=== PATIENT | female | born 1945 | race Caucasian/White ===

== ENCOUNTER 2019-09-03 14:37 | Emergency (ER) | payer MEDICARE, SELFPAY ==
[2019-09-03 14:39] VITALS: BP 157/70; PULSE 78; PULSE 85; RESP 16; RESP 17; TEMP 37.1; O2SAT 94; BMI 50.1
--- NOTE | 2019-09-03 15:40 | RAD_ITS ---
STUDY: X-RAY CHEST REASON FOR EXAM: Female, 73 years old. Cough. Chest pain. TECHNIQUE: Single AP portable view of the chest. COMPARISON: 07/23/2015. FINDINGS: Limited by rotation to the right. Normal lung volumes. Lungs are clear, no infiltrates or effusions. Normal size heart. Normal mediastinum and jv. Normal visualized pulmonary arteries. There is atherosclerotic calcification of the aortic arch with tortuosity. There are diffuse degenerative changes of the visualized thoracic spine. Stable appearance of left shoulder arthroplasty. There is no demonstrated abnormality of the visualized soft tissue structures of the upper abdomen. RAD/Chest 1 View (Portable) IMPRESSION: Limited by suboptimal positioning. No evidence for acute chest disease. Electronically Signed: Can Dutta MD at 15:54 EDT , Service support ,
--- NOTE | 2019-09-03 15:42 | ED.VISSUMM ---
- ER Visit Summary Date of Service: 09/03/19 Chief Complaint: Myalgias History of Present Illness: The patient is a 73 F who states that yesterday around 2300 hrs. she began to hurt all over. She described to EMS is hurting from her head to her toes. She notes particularly her knees hurt her left shoulder where she had a replacement done particularly hurts. She has a pain in her neck that radiates to the left shoulder. She denies any fevers. She notes a chronic cough due to her GERD. She denies any rashes. She is concerned she may have a tick on her neck. She denies any new medications or changes in medication. No vomiting or diarrhea. She took some anti-inflammatories 3 hours prior to arrival. She called EMS after she states it is too painful for her to move. Physical Examination: Afebrile vital signs are stable Gen: Well-nourished well-developed morbidly obese. Head: Normocephalic atraumatic Eyes: Perrl EOMI ENT: TMs clear no rhinorrhea moist mucous membranes Neck: Supple no lymphadenopathy no JVD diffuse tenderness to palpation in the neck CVS: Regular rate rhythm no murmurs normal S1-S2 Respiratory: No distress clear to auscultation bilaterally chest nontender Abdomen: Soft nontender nondistended normal bowel sounds no masses Back: Nontender Extremity: Diffusely tender over her muscles and joints. Skin: Normal color no rash Neuro: alert orientated ?3 CN II-XII intact normal strength sensation walks with a cane/walker Psych: Normal affect normal mood Test Results: White count 12.3. Chemistries show glucose 125. CK 55 urinalysis normal chest x-ray normal. Emergency Department Course and Treatment: Patient received a dose of Toradol. At this. I do not see an obvious cause for the patient's generalized body aches this could be beginning of a viral illness. I do not see an emergent cause at this point I think she can be discharged home with continued observation and supportive care. Impression: 1. Myalgias and arthralgias This note was generated with [employer] dictation software. It may contain incorrect words, spelling, and punctuation that were not noted in review of the chart prior to signing ED Disposition - Plan for ED Patient: Disposition: Home or Assisted Living Instructions: Myalgias, Arthralgia Referrals: Russ Nava, [employer] [Primary Care Provider] - 3-5 Days if not improving
[2019-09-03 15:58] LABS: Absolute Lymphocyte Count 1.55 X10^3/uL (0.83-4.51); Absolute Neutrophil Count 10.1 X10^3/uL (2.0-7.7); Basophil# 0.04 X10^3/uL; Basophil% 0.3 % (0-1); Eosinophil# 0.04 X10^3/uL; Eosinophils% 0.3 % (0-5); Hematocrit 39.4 % (37-47); Hemoglobin 13.1 g/dL (12.0-15.0); Lymphocyte # 1.55 X10^3/ul (4.0); Lymphocyte % 12.6 % (19-41); Mean Corp Hgb Conc 33.2 g/dL (32-36); Mean Corpuscular Hgb 32.6 pg (27.0-32.0); Mean Platelet Vol. 10.9 fl (6.2-12.0); Monocyte# 0.52 X10^3/uL; Monocyte% 4.2 % (0-10); NRBC Flagged by Analyzer 0 % (0-5); Neutrophil % 82.2 % (47-70); Platelet Count 252 K/mm3 (150-450); RBC Distribution Width CV 12.9 % (11.6-14.6); RBC Distribution Width SD 46.5 fl (35.1-43.9); Red Blood Count 4.02 M/mm3 (4.2-5.4); White Blood Count 12.3 K/mm3 (4.4-11.0)
[2019-09-03 16:15] LABS: AST(SGOT) 34 U/L (15-37); Alanine Aminotransfer ALT/SGPT 37 U/L (13-56); Albumin, Serum 3.5 g/dL (3.2-5.0); Alkaline Phosphatase 81 U/L (45-117); Anion Gap 10 (5-15); BUN 20 mg/dL (7-18); Bilirubin, Direct 0.14 mg/dL (0.00-0.30); CPK Total, Creatine Kinase 55 U/L (26-192); Chloride 101 mmol/L (98-107); Creatinine, Serum 0.84 mg/dL (0.55-1.02); EST Glomerular Filtration Rate 71 mL/min (>60); Est Glom Filt Rate - Afr Amer 85 mL/min (>60); Estimated Creatinine Clearance 47.87 ml/min; Globulin 3.2 g/dL (2.2-4.2); Glucose 125 mg/dL (74-106); Potassium 4.1 mmol/L (3.5-5.1); Protein, Total 6.7 g/dL (6.4-8.2); Sodium Level 138 mmol/L (136-145)
[2019-09-03 16:19] LABS: Bacteria 0 SEEN /hpf (None Seen); Mucous, Urine 0 SEEN /hpf (<or=2+); Red Blood Cells-Urine 0 SEEN /hpf (0-5)
[2019-09-03 16:23] LABS: Color, Urine Yellow (Yellow); Glucose, Dipstick Normal (Normal); Ketone-Dipstick Negative (Negative); Leukocyte Esterase-Dipstick Negative /ul (Negative); Nitrite-Dipstick Negative (Negative); Occult Blood-Urine Negative /ul (Negative); Protein-Dipstick Negative (Negative); Urine Bilirubin Dipstick Negative (Negative); Urine Clarity Clear (Clear); Urine Urobilinogen Normal (Normal)
[2019-09-03] MEDS: Ketorolac 15 MG/ML Vial IV (16:39)
[2019-09-03 16:41] LABS: Squamous Epithelial Cells - UA 0-5 SEEN /hpf (5-10)
[2019-09-03 16:42] LABS: White Blood Cells 0-5 SEEN /hpf (0-5); Yeast-Urine RARE /hpf (None Seen)
[2019-09-03 16:47] VITALS: BP 162/46; PULSE 78; RESP 18; O2SAT 94
== END 2019-09-03 17:16 | disposition home or self-care (01) ==
PROVIDERS: Emergency Provider Emergency Medicine; Family Provider Nurse Practitioner Family; PCP Nurse Practitioner Family
DX: M79.10 Myalgia, unspecified site (principal); M25.50 Pain in unspecified joint; K21.9 Gastro-esophageal reflux disease without esophagitis; E66.01 Morbid (severe) obesity due to excess calories; I25.10 Atherosclerotic heart disease of native coronary artery without angina pectoris; I10 Essential (primary) hypertension; E78.00 Pure hypercholesterolemia, unspecified; Z79.82 Long term (current) use of aspirin; Z79.899 Other long term (current) drug therapy
CPT/HCPCS: 71045; 80048; 80076; 81001; 82550; 85025; 96374; 99285; A4216

== ENCOUNTER → 2022-07-15 | Outpatient (CLI) | payer MEDICARE, SELFPAY ==
[2022-07-15 15:37] LABS: CRP 7.29 mg/L (0.0-3.0)
[2022-07-17 16:09] LABS: Endomysial Antibody IgA Negative (Negative)
[2022-07-18 14:26] LABS: Immunoglobulin A 357 mg/dL (64-422); t-Transglutaminase IgA <2 U/mL (0-3)
== END | disposition home or self-care (01) ==
PROVIDERS: PCP Nurse Practitioner Family; Referring Provider Internal Medicine Gastroenterology; Visit Provider Internal Medicine Gastroenterology
DX: R19.7 Diarrhea, unspecified (principal)
CPT/HCPCS: 36415; 82784; 83516; 86140; 86255

== ENCOUNTER 2022-09-23 08:58 | Outpatient (RCR) | payer MEDICARE, SELFPAY | END 2022-09-28 23:59 | disposition home or self-care (01) | LOC: WC 08:58 | PROVIDERS: PCP Nurse Practitioner Family; Visit Provider Internal Medicine | DX: M17.11 Unilateral primary osteoarthritis, right knee (principal); E66.01 Morbid (severe) obesity due to excess calories; Z68.42 Body mass index [BMI] 45.0-49.9, adult; Z96.652 Presence of left artificial knee joint; S81.801A Unspecified open wound, right lower leg, initial encounter; I10 Essential (primary) hypertension; Z71.3 Dietary counseling and surveillance ==

== ENCOUNTER 2023-02-26 14:00 | Outpatient (RCR) | payer MEDICARE, SELFPAY ==
[2023-01-29 08:45] VITALS: BP 145/74; PULSE 73; TEMP 36.2
--- NOTE | 2023-01-29 13:23 | HP.PCM_ITS ---
History of Present Illness Date of Service: 01/29/23 Chief Complaint: RLE wound History of Wound: Patient presents today for evaluation of recurrent RLE wound cluster. She presents now because she is scheduled for a R total knee replacement in April and was told this wound would need to be healed before surgery could proceed. Patient's past medical history is significant for CAD s/p stent and lymphedema. She does not think she has CHF and no records on file to suggest this diagnosis. She is prescribed torsemide but does not take it because she does not like getting up at night to use the restroom. She does have wraps specific for lymphedema (sounds like Juzo wraps) but does not wear them as they are difficult to apply. She reports this R lower leg wound is recurrent over the last couple of years. It is always in the same location. She denies wounds occurring anywhere else on RLE or LLE. She states that at one point she was told this might be psoriasis, but has never been evaluated through biopsy or otherwise by dermatology. She does not recall recent trauma, but states it is possible she bumped this area. She denies history of VTE, past venous or arterial interventions. [facility] Home Medications Levothyroxine Sodium 100 mcg PO DAILY 07/23/15 [History Last Taken Unknown] lisinopril 10 mg tablet 10 mg PO DAILY 07/23/15 [History Last Taken 07/25/15 10:45] metoprolol succinate 50 mg tablet,extended release 24 hr 50 mg PO QHS 07/23/15 [History Last Taken Unknown] multivitamin (Daily Multiple tablet) 1 ea PO DAILY 07/23/15 [History Last Taken Unknown] oxybutynin chloride 10 mg tablet,extended release 24 hr (Ditropan XL) 10 mg PO DAILY 07/23/15 [History Last Taken Unknown] pantoprazole 40 mg tablet,delayed release 40 mg PO DAILY 07/23/15 [History Last Taken Unknown] pravastatin 80 mg tablet 80 mg PO QHS 07/23/15 [History Last Taken Unknown] cholecalciferol (vitamin D3) 125 mcg (5,000 unit) capsule 125 mcg PO DAILY 03/03/22 [History Last Taken Unknown] fluoxetine 40 mg capsule (Prozac) 40 mg PO DAILY 03/03/22 [History Last Taken Unknown] triamcinolone acetonide 0.1 % topical ointment 1 applic topical BID #30 grams 03/03/22 [Rx Last Taken Unknown] torsemide 10 mg tablet 40 mg PO DAILY 01/29/23 [History Last Taken Unknown] tramadol 50 mg tablet 50 mg PO BID PRN Pain 01/29/23 [History Last Taken Unknown] Allergy/AdvReac Type Severity Reaction Status Date / Time indomethacin [From Indocin] Allergy Unknown Verified 03/03/22 11:52 indomethacin sodium Allergy Unknown Verified 03/03/22 11:52 [From Indocin] Penicillins Allergy Rash Verified 03/03/22 11:52 Sulfa (Sulfonamide Allergy Rash Verified 03/03/22 11:52 Antibiotics) codeine AdvReac Other Verified 03/03/22 11:52 simvastatin AdvReac Pain in Verified 03/03/22 11:52 joints Family History (Updated 03/03/22 @ 11:58 by Bernice Hanson) Father Heart disease Kidney disease Mother Anorexia Surgical History (Updated 03/03/22 @ 11:57 by Bernice Hanson) Hx of cholecystectomy Stented coronary artery Total knee replacement status Social History (Updated 03/03/22 @ 11:58 by Bernice Hanson) Smoking Status: Never smoker alcohol intake: current alcohol intake frequency: holidays/special occasions only ROS Constitutional Constitutional: Denies change in weight, chills, difficulty sleeping, fatigue, fever(s), frequent falls, lethargy, night sweats or weakness Eyes Eyes: Denies blindness, blurry vision, change in vision, eye pain or ptosis ENT HEENT: Denies abnormal hearing, change in voice, hearing loss, loss taste/smell or vertigo Cardiovascular Cardiovascular: Reports leg edema and leg ulcers; Denies abdominal pain, chest pain, claudication, cold extremities, cyanosis, diaphoresis, dyspnea, dyspnea on exertion, fatigue, hypertension, irregular heart rhythm, orthopnea, palpitations, radiating jaw, neck or arm pain or syncope Respiratory/Chest Respiratory/Chest: Denies cough, dyspnea, hemoptysis, nail bed cyanosis, soco- oral cyanosis, portable oxygen @ home, productive cough or wheezing Gastrointestinal Gastrointestinal: Denies abdominal pain, change in bowel habits, change in stool character, coffee ground emesis, melena, rectal bleeding or weight changes Genitourinary Genitourinary: Denies abdominal discomfort, burning urination, difficulty urinating or flank pain Musculoskeletal Musculoskeletal: Denies abnormal gait, difficulty walking, joint swelling, muscle cramps, muscle weakness or numbness Integumentary Integumentary: Reports wounds; Denies change in pigmentation, changing lesions, erythema, lesions, rash or unusual bruising Neurologic Neurologic: Denies abnormal gait, abnormal movements, abnormal speech, behavior changes, frequent falls, syncope, tingling or weakness Psychiatric Psychiatric: Denies behavioral changes, cognitive impairment or depression Endocrine Endocrinology: Denies change in body appearance, cold intolerance, excessive sweating, flushing, heat intolerance, palpitations, polydipsia, polyphagia or polyuria Hematologic/Lymphatic Hematologic/Lymphatic: Denies anemia, easy bleeding, easy bruising or lymphadenopathy Allergic/Immunologic Allergic/Immunologic: Denies seasonal rhinorrhea, throat swelling, tongue swelling, hives or asthma Vital Signs Vital Signs Vital Signs: 01/29/23 08:45 Temperature 97.1 F L Temperature Source Temporal Pulse Rate 73 Blood Pressure 145/74 H Blood Pressure Mean 97 Blood Pressure Source Monitor Physical Exam Const alert, oriented x3 and no apparent distress General Appearance: cooperative and comfortable HEENT normocephalic, hearing grossly normal bilaterally, external ears normal and external nose normal Head and Scalp: normal to inspection Eyes EOMs intact bilaterally General Eye: normal appearance of both eyes Neck full ROM General: normal visual inspection and trachea midline Resp normal respiratory effort, normal air movement, no retractions and no use of accessory muscles Effort and Inspection: able to speak in complete sentences Cardio regular rate and regular rhythm Heart Sounds: murmur Peripheral Pulses: brachial pulses present and radial pulses present Extremity Extremity Narrative: Bilateral lower extremities with significant edema. Varicose/reticular veins noted bilaterally. Normal capillary refill, appropriate warmth. Skin Wound Narrative: Small wound anterior right lower leg, very superficial. Immediately below this open wound are two discolored/scarred areas which appear as prior wounds, rough in texture. Serous drainage noted. No significant erythema, excessive warmth, tenderness to palpation, foul odor. Neuro oriented x3, CN's II-XII intact bilaterally, moves all extremities, no focal motor deficits and no sensory deficits noted Psych cooperative, affect normal, speech normal and activity/motor behavior normal Debridement Note Debridement Note Wound debrided: Anterior R lower leg Laterality: Right No debridement was completed: No debridement was completed today Post-Debridement Measurements and Additional Note: Post-Debridement Measurements/Treatment WC - Nurse 1 - General Ulcer Assessment Start: 01/29/23 08:39 Freq: Status: Active Protocol: CHELY Activity Type Activity Date Activity User E-sign Co-sign Detail Recorded Client Recorded Date Recorded By Document 01/29/23 08:45 GA [id number] 01/29/23 08:59 GA 01/29/23 08:45 WC - Today's Visit Information Type of service Follow-up Visit (Physician/WELLNESS PROGRAM MANAGER ) Arrival Mode Ambulatory Patient Identification Verified (Name & Yes ) Patient Requires Transmission-Based No Precautions Safety Precautions NA Vital Signs Temperature (97.8 F-99.1 F) 97.1 F L Temperature Source Temporal Pulse Rate (60-100) 73 Pulse Location Monitor Blood Pressure (90/60-120/80) 145/74 H Blood Pressure Mean 97 Source Monitor History Since Last Visit- (Skip if this is Patient's initial visit) Left Footwear Regular Shoe Right Footwear Regular Shoe Pain Scale: 0-10 Numeric Is Patient Pain Free? Yes - Nurse 1 - General Ulcer Measurement Start: 01/29/23 08:39 Freq: Status: Active Protocol: Activity Type Activity Date Activity User E-sign Co-sign Detail Recorded Client Recorded Date Recorded By Document 01/29/23 08:45 GA [id number] 01/29/23 08:59 GA 01/29/23 08:45 Wound Center Nurse 1 #1 R MOORE -Combined with other wound No -Current Size (cm) - Length 0.7 -Current Size (cm) - Width 0.5 -Current Size (cm) - Depth 0.1 -Total Square Cm 0.35 -Photo Taken Yes -Tunneling No -Undermining/Tunneling No -Circular Undermining No -Change in Wound Grade/Stage No -Exudate Amt None Present -Wound Margin Distinct, Outline Attached -Granulation Amt Large (67-100%) -Granulation Quality [place] -Slough/Fibrin No -Necrosis Amt None Present (0 %) -Structure Exposed N/A -Texture (Soco-wound Skin Appearance) No Abnormality, Assessed -Moisture (Soco-wound Skin Appearance) No Abnormality, Assessed -Color (Soco-wound Skin Appearance) No Abnormality, Assessed -Temperature (Soco-wound Skin No Abnormality Appearance) (Pt Warm) -Tenderness on Palpation (Soco-wound No Skin Appearance) -Ulcer Cleansing Rinsed/ Irrigated with Saline -Foul Odor after Cleansing No -Anesthetic Used 4% Lidocaine Solution Right Calf (cm) 54 Right Ankle (cm) 32 Left Calf (cm) 53 Left Ankle (cm) 33 - Nurse 2 - General Ulcer CM Notes Start: 01/29/23 08:39 Freq: Status: Active Protocol: Activity Type Activity Date Activity User E-sign Co-sign Detail Recorded Client Recorded Date Recorded By Document 01/29/23 12:32 PL [id number] 01/29/23 12:32 PL 01/29/23 12:32 Wound Center Nurse 2 #1 R MOORE -Procedure Performed No Pain Scale: 0-10 Numeric Is Patient Pain Free? Yes - Nurse 3 - General Ulcer D/C NN Start: 01/29/23 08:39 Freq: Status: Active Protocol: Activity Type Activity Date Activity User E-sign Co-sign Detail Recorded Client Recorded Date Recorded By Document 01/29/23 10:16 MT [id number] 01/29/23 10:17 MT 01/29/23 10:16 Wound Care Center Nurse 3 #1 R MOORE -Ulcer Cleansing Soap and Water -Other Dressing unna boots bilat -Primary Dressing Covered/Secured with Dry Gauze & Roll Gauze, Secured with Tape bilat -Multi-Layered Wrap Application Unna Boot - Bilateral ($) -Unna Boots (Bilat) ($) 2 Pain Scale: 0-10 Numeric Is Patient Pain Free? Yes - Visit Discharge Discharge Condition Stable Ambulatory Status Ambulatory, Walker Transportation Private Auto Medication Reconcilliation completed & No provided to patient/care provider Clinical Summary of Care Provided Yes Notes: pt and daughter both verbalized understanding of unna boots. They understand they need to stay dry and stay on for a week until the pt next appt. Charges/Coding Visit Charges Office Visits / Consults: [id number] OV L2 New Assessment/Plan Assessment/Plan (1) Non-pressure chronic ulcer right lower leg, limited to breakdown skin: CODE(S): L97.911 - Non-pressure chronic ulcer of unspecified part of right lower leg limited to breakdown of skin PLAN: Small, superficial wound to right lower leg near ankle. Would appear to be secondary to significant lower extremity edema and lack of consistency with compression may explain recurrence. Will obtain venous duplex to evaluate reflux. Possible there is an incompetent perforate contributing to the wound recurrence in this specific location. Will apply Unna boot for both dressing and compression. Patient will leave in place until appointment next week. Will consider punch biopsy and/or dermatology referral depending upon progress given recurrence/persistence of wound in same location. Elevate legs when resting. Reduce carbs/sugar and increase protein in diet. Return to clinic in 1 week or sooner as needed.
--- NOTE | 2023-02-04 09:53 | VDLE_ITS ---
Reason For Study: RLE wound, [place] edema RIGHT LEFT CFV is compressible, spontaneous, phasic, CFV is compressible, spontaneous, phasic, competent and demonstrates normal competent, and demonstrates normal augmentation. augmentation. FV is compressible, spontaneous, phasic, FV is compressible, spontaneous, phasic, competent and demonstrates normal competent and demonstrates normal augmentation. augmentation. POP V is compressible, spontaneous, phasic, POP V is compressible, spontaneous, phasic, competent and demonstrates normal competent and demonstrates normal augmentation. augmentation. T/P Trunk is compressible. T/P Trunk is compressible. PTV is compressible. PTV is compressible. RT PerV is compressible. LT PerV is compressible. SFJ is competent and measures .83 cm. SFJ is competent and measures .77 cm. GSV proximal thigh measures .64 x .72 cm. GSV proximal thigh measures .44 x .49 cm. GSV at knee measures .3 x .3 cm. GSV at knee measures .3 x .33 cm. GSV above knee is competent. GSV above knee is competent. GSV below knee is INCOMPETENT for greater GSV below knee is INCOMPETENT for greater than 0.5 seconds. than 0.5 seconds. SSV proximal calf is competent and SSV proximal calf is competent and measures .48 x .51 cm. measures .31 x .3 cm. Procedure Chief Specialist Leed V 17 cm proximal to the medial This is a venous duplex using B-mode, color malleolus is incompetent for greater than .5 flow and spectral Doppler. seconds. Exam performed in department. The exam was diagnostic. VL/Venous Duplex US - [place] Extrem Interpretation Summary Deep veins of the right lower extremity are patent and compressible segmentally . There is no evidence of right lower extremity deep vein thrombosis. The right great sapheno us vein appears patent and compressible segmentally. Deep veins of the bilateral lower extremit ies are patent and compressible segmentally. There is no evidence of bilateral lower extremity yanira p vein thrombosis. The bilateral great saphenous veins appear patent and compressible segmentally. Positive for reflux in the right great saphenous vein Positive for reflux in the left great saphenous vein and cutter grinder operator vein Ordering Physician: Maribeth Swartz Performed By: Patric Sorensen RVT
[2023-02-05 09:57] VITALS: BP 163/68; PULSE 69; TEMP 36.2
--- NOTE | 2023-02-05 15:27 | PCM.WC.PN ---
History of Present Illness Date of Service: 02/05/23 Chief Complaint: RLE wound History of Wound: Patient presents today for evaluation of recurrent RLE wound cluster. She presents now because she is scheduled for a R total knee replacement in April and was told this wound would need to be healed before surgery could proceed. Patient's past medical history is significant for CAD s/p stent and lymphedema. She does not think she has CHF and no records on file to suggest this diagnosis. She is prescribed torsemide but does not take it because she does not like getting up at night to use the restroom. She does have wraps specific for lymphedema (sounds like Juzo wraps) but does not wear them as they are difficult to apply. She reports this R lower leg wound is recurrent over the last couple of years. It is always in the same location. She denies wounds occurring anywhere else on RLE or LLE. She states that at one point she was told this might be psoriasis, but has never been evaluated through biopsy or otherwise by dermatology. She does not recall recent trauma, but states it is possible she bumped this area. She denies history of VTE, past venous or arterial interventions. Subjective Subjective Patient continues to have significant bilateral lower extremity edema, even with compression. Did Suzi boot last week, patient did remove some of this a couple days ago because it was interfering with something she wanted to wear. Otherwise, no issues with the dressing. She is not taking prescribed lasix because she does not like the associated frequent urination. Objective Data Objective Data Vital Signs: Vital Signs Temp Pulse BP 97.2 F L 69 163/68 H 02/05/23 09:57 02/05/23 09:57 02/05/23 09:57 Charges/Coding Visit Charges Office Visits / Consults: 11852 OV L1 Est Physical Exam Const alert, oriented x3 and no apparent distress General Appearance: cooperative and comfortable HEENT normocephalic, hearing grossly normal bilaterally, external ears normal and external nose normal Head and Scalp: normal to inspection Eyes EOMs intact bilaterally General Eye: normal appearance of both eyes Neck full ROM General: normal visual inspection and trachea midline Resp normal respiratory effort, normal air movement, no retractions and no use of accessory muscles Effort and Inspection: able to speak in complete sentences Cardio regular rate and regular rhythm Heart Sounds: murmur Peripheral Pulses: brachial pulses present and radial pulses present Extremity Extremity Narrative: Bilateral lower extremities with significant edema. Varicose/reticular veins noted bilaterally. Normal capillary refill, appropriate warmth. Skin Wound Narrative: The small open wound has closed. Red, rough patch of skin remains where wound was. No weeping noted. No significant erythema, excessive warmth, tenderness to palpation, foul odor. Neuro oriented x3, CN's II-XII intact bilaterally, moves all extremities, no focal motor deficits and no sensory deficits noted Psych cooperative, affect normal, speech normal and activity/motor behavior normal Debridement Note Debridement Note Wound debrided: Right lower leg No debridement was completed: No debridement was completed today Post-Debridement Measurements and Additional Note: Post-Debridement Measurements/Treatment - Nurse 1 - General Ulcer Assessment Start: 01/29/23 08:39 Freq: Status: Active Protocol: CHELY Activity Type Activity Date Activity User E-sign Co-sign Detail Recorded Client Recorded Date Recorded By Document 01/29/23 08:45 UT [id number] 01/29/23 08:59 AK Document 02/05/23 09:57 UT [id number] 02/05/23 10:00 AK 01/29/23 02/05/23 08:45 09:57 - Today's Visit Information Type of service Follow-up Visit Follow-up Visit (Physician/AGRISCIENCE INSTRUCTOR (Physician/AGRISCIENCE INSTRUCTOR ) ) Arrival Mode Ambulatory Ambulatory, Walker Patient Identification Verified (Name & Yes No ) Patient Requires Transmission-Based No No Precautions Safety Precautions NA Vital Signs Temperature (97.8 F-99.1 F) 97.1 F L 97.2 F L Temperature Source Temporal Temporal Pulse Rate (60-100) 73 69 Pulse Location Monitor Monitor Blood Pressure (90/60-120/80) 145/74 H 163/68 H Blood Pressure Mean (mm Hg) 97 99 Source Monitor Monitor History Since Last Visit- (Skip if this is Patient's initial visit) Have you changed medications since your No last visit? Any new allergies or adverse reactions No Had a fall/change in ADL's that may No increase risk of falls Signs or symptoms of abuse and/or No neglect since last visit Have you been in the hospital since your No last visit? Has dressing in place as prescribed No Has compression in place as prescribed No Has offloadiing in place as prescribed N/A Experienced any changes in pain level or No management Left Footwear Regular Shoe Regular Shoe Right Footwear Regular Shoe Regular Shoe Pain Scale: 0-10 Numeric Is Patient Pain Free? Yes No WC - Nurse 1 - General Ulcer Measurement Start: 01/29/23 08:39 Freq: Status: Active Protocol: Activity Type Activity Date Activity User E-sign Co-sign Detail Recorded Client Recorded Date Recorded By Document 01/29/23 08:45 UT [id number] 01/29/23 08:59 AK Document 02/05/23 09:57 AK [id number] 02/05/23 10:00 AK 01/29/23 02/05/23 08:45 09:57 Wound Center Nurse 1 #1 R MOORE -Combined with other wound No No -Current Size (cm) - Length 0.7 0.1 -Current Size (cm) - Width 0.5 0.1 -Current Size (cm) - Depth 0.1 0.1 -Total Square Cm 0.35 0.01 -Photo Taken Yes No -Tunneling No No -Undermining/Tunneling No No -Circular Undermining No No -Change in Wound Grade/Stage No No -Exudate Amt None Present None Present -Wound Margin Distinct, Distinct, Outline Outline Attached Attached -Granulation Amt Large (67-100%) None Present (0 %) -Granulation Quality [place] N/A -Slough/Fibrin No No -Necrosis Amt None Present (0 None Present (0 %) %) -Structure Exposed N/A N/A -Texture (Kiya-wound Skin Appearance) No Abnormality, No Abnormality, Assessed Assessed -Moisture (Kiya-wound Skin Appearance) No Abnormality, Assessed Assessed -Color (Kiya-wound Skin Appearance) No Abnormality, No Abnormality Assessed -Temperature (Kiya-wound Skin No Abnormality No Abnormality Appearance) (Pt Warm) (Pt Warm) -Tenderness on Palpation (Kiya-wound No No Skin Appearance) -Ulcer Cleansing Rinsed/ Soap and Water Irrigated with Saline -Foul Odor after Cleansing No No -Anesthetic Used 4% Lidocaine Solution Right Calf (cm) 54 54 Right Ankle (cm) 32 31 Left Calf (cm) 53 52 Left Ankle (cm) 33 31 WC - Nurse 2 - General Ulcer CM Notes Start: 01/29/23 08:39 Freq: Status: Active Protocol: Activity Type Activity Date Activity User E-sign Co-sign Detail Recorded Client Recorded Date Recorded By Document 01/29/23 12:32 PL [id number] 01/29/23 12:32 PL 01/29/23 12:32 Wound Center Nurse 2 #1 R MOORE -Procedure Performed No Pain Scale: 0-10 Numeric Is Patient Pain Free? Yes WC - Nurse 3 - General Ulcer D/C NN Start: 01/29/23 08:39 Freq: Status: Active Protocol: Activity Type Activity Date Activity User E-sign Co-sign Detail Recorded Client Recorded Date Recorded By Document 01/29/23 10:16 MT [id number] 01/29/23 10:17 MT Document 02/05/23 15:04 AK [id number] 02/05/23 15:05 AK 01/29/23 02/05/23 10:16 15:04 Wound Care Center Nurse 3 #1 R MOORE -Ulcer Cleansing Soap and Water Not Cleansed -Foul Odor after Cleansing No -Negative Pressure Wound Therapy N/A -Other Dressing unna boots bilat -Primary Dressing Covered/Secured with Dry Gauze & Roll Gauze, Secured with Tape bilat -Lotion applied to leg before Yes compression wrap -Multi-Layered Wrap Application Unna Boot - Multi-Layer Bilateral ($) Comp - Bilat ($ ) -Unna Boots (Bilat) ($) 2 Pain Scale: 0-10 Numeric Is Patient Pain Free? Yes Yes WC - Visit Discharge Discharge Condition Stable Stable Ambulatory Status Ambulatory, Ambulatory Walker Transportation Private Auto Private Auto Medication Reconcilliation completed & No Yes provided to patient/care provider Clinical Summary of Care Provided Yes Yes Notes: pt and daughter both verbalized understanding of unna boots. They understand they need to stay dry and stay on for a week until the pt next appt. Assessment/Plan Assessment/Plan (1) Non-pressure chronic ulcer right lower leg, limited to breakdown skin: CODE(S): L97.911 - Non-pressure chronic ulcer of unspecified part of right lower leg limited to breakdown of skin PLAN: Small, superficial wound to right lower leg near ankle. Would appear to be secondary to significant lower extremity edema and lack of consistency with compression may explain recurrence. 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 Given the extent of her swelling, it would not be unreasonable to consider evaluating for central venous compression. Will consult with Dr. Guzmán. However, I do also think her other comorbidities are likely contributing to the BLE edema. I encouraged patient to resume her lasix. Advised that she will likely have frequent urination the first week or two because she is holding so much fluid, but hopefully this would improve with time. Would like to ensure we are maximizing management of other contributing conditions before more invasive procedure. Patient is agreeable. Will apply 3M wraps for increased compression. Patient will come to clinic early next week to have dressings changed, leave in place until then. Continue to elevate feet when resting. Will refer to dermatology for evaluation of this red hyperpigmented lesion on R lower leg, where superficial wound had been. This patch of skin is also rough to touch. Patient reports it will completely resolve and then reappear, not always associated with open wound. I suspect eczema or psoriasis. Dermatology will evaluate and aid with treatment or determine if biopsy/further investigation required. Elevate legs when resting. Reduce carbs/sugar and increase protein in diet. Return to clinic in 1 week or sooner as needed.
[2023-02-09 14:11] VITALS: BP 123/59; PULSE 74; RESP 18; TEMP 35.3
[2023-02-12 09:30] VITALS: BP 99/51; PULSE 108; RESP 16
--- NOTE | 2023-02-12 11:04 | PN.PCM_ITS ---
History of Present Illness Date of Service: 02/12/23 Chief Complaint: RLE wound History of Wound: Patient presents today for evaluation of recurrent RLE wound cluster. She presents now because she is scheduled for a R total knee replacement in April and was told this wound would need to be healed before surgery could proceed. Patient's past medical history is significant for CAD s/p stent and lymphedema. She does not think she has CHF and no records on file to suggest this diagnosis. She is prescribed torsemide but does not take it because she does not like getting up at night to use the restroom. She does have wraps specific for lymphedema (sounds like Juzo wraps) but does not wear them as they are difficult to apply. She reports this R lower leg wound is recurrent over the last couple of years. It is always in the same location. She denies wounds occurring anywhere else on RLE or LLE. She states that at one point she was told this might be psoriasis, but has never been evaluated through biopsy or otherwise by dermatology. She does not recall recent trauma, but states it is possible she bumped this area. She denies history of VTE, past venous or arterial interventions. Subjective Subjective She did well with the 3M wraps this last week. She did start taking her lasix again BID as prescribed by her PCP. No open wounds, still with the red/rough patch on right marti. Still with significant swelling, but some improvement from prior weeks. Objective Data Objective Data Vital Signs: Vital Signs Temp Pulse Resp BP O2 Del Method 95.6 F L 108 H 16 99/51 L Room Air 02/09/23 14:11 02/12/23 09:30 02/12/23 09:30 02/12/23 09:30 02/12/23 09:30 Oxygen Delivery Method Room Air Charges/Coding Visit Charges Office Visits / Consults: 00794 OV L1 Est Physical Exam Const alert, oriented x3 and no apparent distress General Appearance: cooperative and comfortable HEENT normocephalic, hearing grossly normal bilaterally, external ears normal and external nose normal Head and Scalp: normal to inspection Eyes EOMs intact bilaterally General Eye: normal appearance of both eyes Neck full ROM General: normal visual inspection and trachea midline Resp normal respiratory effort, normal air movement, no retractions and no use of accessory muscles Effort and Inspection: able to speak in complete sentences Cardio regular rate and regular rhythm Heart Sounds: murmur Peripheral Pulses: brachial pulses present and radial pulses present Extremity Extremity Narrative: Bilateral lower extremities with significant edema. Varicose/reticular veins noted bilaterally. Normal capillary refill, appropriate warmth. Skin Wound Narrative: Red, rough patch of skin remains. No weeping noted. No significant erythema, excessive warmth, tenderness to palpation, foul odor. Neuro oriented x3, CN's II-XII intact bilaterally, moves all extremities, no focal motor deficits and no sensory deficits noted Psych cooperative, affect normal, speech normal and activity/motor behavior normal Debridement Note Debridement Note No debridement was completed: No debridement was completed today Post-Debridement Measurements and Additional Note: Post-Debridement Measurements/Treatment - Nurse 1 - General Ulcer Assessment Start: 01/29/23 08:39 Freq: Status: Active Protocol: CHELY Activity Type Activity Date Activity User E-sign Co-sign Detail Recorded Client Recorded Date Recorded By Document 01/29/23 08:45 AK [id number] 01/29/23 08:59 AK Document 02/05/23 09:57 AK [id number] 02/05/23 10:00 AK Document 02/09/23 14:11 DL [id number] 02/09/23 14:17 DL Document 02/12/23 09:30 BMF [id number] 02/12/23 09:48 BMF 01/29/23 02/05/23 02/09/23 08:45 09:57 14:11 - Today's Visit Information Type of service Follow-up Visit Follow-up Visit Nurse-only (Physician/CHAIN FORMING MACHINE OPERATOR (Physician/CHAIN FORMING MACHINE OPERATOR Visit ) ) Arrival Mode Ambulatory Ambulatory, Ambulatory Walker Transfer Assistance None Transfer Assist (Other) Patient Identification Verified (Name & Yes No Yes ) Patient Requires Transmission-Based No No No Precautions Safety Precautions NA NA Vital Signs Temperature (97.8 F-99.1 F) 97.1 F L 97.2 F L 95.6 F L Temperature Source Temporal Temporal Temporal Pulse Rate (60-100) 73 69 74 Pulse Location Monitor Monitor Monitor Respiratory Rate (12-18) 18 Respiratory rate source Observation Oxygen Delivery Method Blood Pressure (90/60-120/80) 145/74 H 163/68 H 123/59 H Blood Pressure Mean (mm Hg) 97 99 80 Source Monitor Monitor Monitor Position Blood Pressure Location History Since Last Visit- (Skip if this is Patient's initial visit) Have you changed medications since your No No last visit? Any new allergies or adverse reactions No No Had a fall/change in ADL's that may No No increase risk of falls Signs or symptoms of abuse and/or No No neglect since last visit Have you been in the hospital since your No No last visit? Has dressing in place as prescribed No Yes Has compression in place as prescribed No Yes Has offloadiing in place as prescribed N/A N/A Experienced any changes in pain level or No No management Left Footwear Regular Shoe Regular Shoe Right Footwear Regular Shoe Regular Shoe Pain Scale: 0-10 Numeric Is Patient Pain Free? Yes No Yes 02/12/23 09:30 WC - Today's Visit Information Type of service Follow-up Visit (Physician/CHAIN FORMING MACHINE OPERATOR ) Arrival Mode Wheelchair Transfer Assistance Other Transfer Assist (Other) 1 Patient Identification Verified (Name & Yes ) Patient Requires Transmission-Based No Precautions Safety Precautions Vital Signs Temperature (97.8 F-99.1 F) Temperature Source Pulse Rate (60-100) 108 H Pulse Location Monitor Respiratory Rate (12-18) 16 Respiratory rate source Observation Oxygen Delivery Method Room Air Blood Pressure (90/60-120/80) 99/51 L Blood Pressure Mean (mm Hg) 67 Source Monitor Position Sitting Blood Pressure Location Left Forearm History Since Last Visit- (Skip if this is Patient's initial visit) Have you changed medications since your No last visit? Any new allergies or adverse reactions No Had a fall/change in ADL's that may No increase risk of falls Signs or symptoms of abuse and/or No neglect since last visit Have you been in the hospital since your No last visit? Has dressing in place as prescribed Has compression in place as prescribed Yes Has offloadiing in place as prescribed N/A Experienced any changes in pain level or No management Left Footwear Regular Shoe Right Footwear Regular Shoe Pain Scale: 0-10 Numeric Is Patient Pain Free? Yes - Nurse 1 - General Ulcer Measurement Start: 01/29/23 08:39 Freq: Status: Active Protocol: Activity Type Activity Date Activity User E-sign Co-sign Detail Recorded Client Recorded Date Recorded By Document 01/29/23 08:45 AK [id number] 01/29/23 08:59 AK Document 02/05/23 09:57 AK [id number] 02/05/23 10:00 AK Document 02/09/23 14:11 DL [id number] 02/09/23 14:17 DL Document 02/12/23 09:30 [facility] [id number] 02/12/23 09:48 BMF 01/29/23 02/05/23 02/09/23 08:45 09:57 14:11 Wound Center Nurse 1 #1 R MARTI -Combined with other wound No No -Current Size (cm) - Length 0.7 0.1 0.1 -Current Size (cm) - Width 0.5 0.1 0.1 -Current Size (cm) - Depth 0.1 0.1 0.1 -Total Square Cm 0.35 0.01 0.01 -Date of Last Picture (Recall this field) -Photo Taken Yes No -Epithelialization -Tunneling No No -Undermining/Tunneling No No -Circular Undermining No No -Change in Wound Grade/Stage No No -Exudate Amt None Present None Present None Present -Wound Margin Distinct, Distinct, Flat & Intact Outline Outline Attached Attached -Granulation Amt Large (67-100%) None Present (0 Large (67-100%) %) -Granulation Quality [place] N/A [place] -Slough/Fibrin No No -Necrosis Amt None Present (0 None Present (0 None Present (0 %) %) %) -Structure Exposed N/A N/A N/A -Texture (Kiya-wound Skin Appearance) No Abnormality, No Abnormality, Localized Edema Assessed Assessed -Moisture (Kiya-wound Skin Appearance) No Abnormality, Assessed No Abnormality Assessed -Color (Kiya-wound Skin Appearance) No Abnormality, No Abnormality No Abnormality Assessed -Temperature (Kiya-wound Skin No Abnormality No Abnormality No Abnormality Appearance) (Pt Warm) (Pt Warm) (Pt Warm) -Tenderness on Palpation (Kiya-wound No No No Skin Appearance) -Ulcer Cleansing Rinsed/ Soap and Water Soap and Water Irrigated with Saline -Foul Odor after Cleansing No No No -Anesthetic Used 4% Lidocaine Solution Lower Limb Edema Present Right Calf (cm) 54 54 49 Right Ankle (cm) 32 31 31.1 Left Calf (cm) 53 52 47.8 Left Ankle (cm) 33 31 29 02/12/23 09:30 Wound Center Nurse 1 #1 R MARTI -Combined with other wound No -Current Size (cm) - Length 0 -Current Size (cm) - Width 0 -Current Size (cm) - Depth 0 -Total Square Cm 0 -Date of Last Picture (Recall this 02/12/23 field) -Photo Taken Yes -Epithelialization Large 67-100% -Tunneling -Undermining/Tunneling -Circular Undermining -Change in Wound Grade/Stage -Exudate Amt -Wound Margin -Granulation Amt -Granulation Quality -Slough/Fibrin -Necrosis Amt -Structure Exposed -Texture (Kiya-wound Skin Appearance) Assessed -Moisture (Kiya-wound Skin Appearance) Assessed -Color (Kiya-wound Skin Appearance) Assessed -Temperature (Kiya-wound Skin No Abnormality Appearance) (Pt Warm) -Tenderness on Palpation (Kiya-wound No Skin Appearance) -Ulcer Cleansing Soap and Water -Foul Odor after Cleansing -Anesthetic Used Lower Limb Edema Present Yes Right Calf (cm) 52 Right Ankle (cm) 30.5 Left Calf (cm) 51.6 Left Ankle (cm) 29.7 WC - Nurse 2 - General Ulcer CM Notes Start: 01/29/23 08:39 Freq: Status: Active Protocol: Activity Type Activity Date Activity User E-sign Co-sign Detail Recorded Client Recorded Date Recorded By Document 01/29/23 12:32 PL [id number] 01/29/23 12:32 PL 01/29/23 12:32 Wound Center Nurse 2 #1 R MARTI -Procedure Performed No Pain Scale: 0-10 Numeric Is Patient Pain Free? Yes WC - Nurse 3 - General Ulcer D/C NN Start: 01/29/23 08:39 Freq: Status: Active Protocol: Activity Type Activity Date Activity User E-sign Co-sign Detail Recorded Client Recorded Date Recorded By Document 01/29/23 10:16 MT [id number] 01/29/23 10:17 MT Document 02/05/23 15:04 AK [id number] 02/05/23 15:05 AK Document 02/09/23 14:11 DL [id number] 02/09/23 14:17 DL Document 02/12/23 10:20 BMF [id number] 02/12/23 10:21 BMF 01/29/23 02/05/23 02/09/23 10:16 15:04 14:11 Wound Care Center Nurse 3 #1 R MARTI -Ulcer Cleansing Soap and Water Not Cleansed Soap and Water -Foul Odor after Cleansing No No -Negative Pressure Wound Therapy N/A -Primary Dressing Applied NonAdherent Contact Layer -Other Dressing unna boots bilat -Primary Dressing Covered/Secured with Dry Gauze & Roll Gauze, Secured with Tape bilat -Lotion applied to leg before Yes compression wrap -Multi-Layered Wrap Application Unna Boot - Multi-Layer Multi-Layer Bilateral ($) Comp - Bilat ($ Comp - Bilat ($ ) ) -Unna Boots (Bilat) ($) 2 Treatment Response Procedure Tolerated Well Vital Signs Temperature (97.8 F-99.1 F) 95.6 F L Temperature Source Temporal Pulse Rate (60-100) 74 Pulse Location Monitor Respiratory Rate (12-18) 18 Respiratory rate source Observation Blood Pressure (90/60-120/80) 123/59 H Blood Pressure Mean (mm Hg) 80 Source Monitor Pain Scale: 0-10 Numeric Is Patient Pain Free? Yes Yes Yes WC - Visit Discharge Discharge Condition Stable Stable Stable Ambulatory Status Ambulatory, Ambulatory Ambulatory Walker Transportation Private Auto Private Auto Private Auto Medication Reconcilliation completed & No Yes provided to patient/care provider Clinical Summary of Care Provided Yes Yes Notes: pt and daughter both verbalized understanding of unna boots. They understand they need to stay dry and stay on for a week until the pt next appt. Facility Type Home Health 02/12/23 10:20 Wound Care Center Nurse 3 #1 R MARTI -Ulcer Cleansing -Foul Odor after Cleansing -Negative Pressure Wound Therapy -Primary Dressing Applied -Other Dressing -Primary Dressing Covered/Secured with bilat -Lotion applied to leg before compression wrap -Multi-Layered Wrap Application Multi-Layer Comp - Bilat ($ ) -Unna Boots (Bilat) ($) Treatment Response Procedure Tolerated Well Vital Signs Temperature (97.8 F-99.1 F) Temperature Source Pulse Rate (60-100) Pulse Location Respiratory Rate (12-18) Respiratory rate source Blood Pressure (90/60-120/80) Blood Pressure Mean (mm Hg) Source Pain Scale: 0-10 Numeric Is Patient Pain Free? Yes WC - Visit Discharge Discharge Condition Stable Ambulatory Status Wheelchair Transportation Private Auto Medication Reconcilliation completed & provided to patient/care provider Clinical Summary of Care Provided Notes: Facility Type Assessment/Plan Assessment/Plan (1) Bilateral lower extremity edema: CODE(S): R60.0 - Localized edema (2) Venous insufficiency (chronic) (peripheral): CODE(S): I87.2 - Venous insufficiency (chronic) (peripheral) (3) Lymphedema: CODE(S): I89.0 - Lymphedema, not elsewhere classified PLAN: Plan Will apply 3M wraps for increased compression. Patient will come to clinic early next week to have dressings changed, leave in place until then. Continue to elevate feet when resting. Continue with Lasix. Did order BMP and advised patient to reach out to PCP to let them know she has restarted this in case they wish to further monitor. 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 Given the extent of her swelling, it would not be unreasonable to consider evaluating for central venous compression but patient not eager to pursue any other procedures/interventions before her planned R TKR in April. Referred to derm for evaluation of the red, rough patch of skin on right marti. Elevate legs when resting. Reduce carbs/sugar and increase protein in diet. Return to clinic in 1 week or sooner as needed.
[2023-02-19 10:04] VITALS: BP 159/62; TEMP 35.6
--- NOTE | 2023-02-19 10:13 | PN.PCM_ITS ---
History of Present Illness Date of Service: 02/19/23 Chief Complaint: RLE wound History of Wound: Patient presents today for evaluation of recurrent RLE wound cluster. She presents now because she is scheduled for a R total knee replacement in April and was told this wound would need to be healed before surgery could proceed. Patient's past medical history is significant for CAD s/p stent and lymphedema. She does not think she has CHF and no records on file to suggest this diagnosis. She is prescribed torsemide but does not take it because she does not like getting up at night to use the restroom. She does have wraps specific for lymphedema (sounds like Juzo wraps) but does not wear them as they are difficult to apply. She reports this R lower leg wound is recurrent over the last couple of years. It is always in the same location. She denies wounds occurring anywhere else on RLE or LLE. She states that at one point she was told this might be psoriasis, but has never been evaluated through biopsy or otherwise by dermatology. She does not recall recent trauma, but states it is possible she bumped this area. She denies history of VTE, past venous or arterial interventions. Subjective Subjective She continues with 3M wraps, keeping up with nurse visits for changes. She continues with lasix. No open wounds, still with the red/rough patch on right marti. Still with significant swelling. 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 She complains of R knee pain, this is the knee she is supposed to have replaced in April. Objective Data Objective Data Vital Signs: Vital Signs Temp Pulse Resp BP O2 Del Method 96.1 F L 108 H 16 159/62 H Room Air 02/19/23 10:04 02/12/23 09:30 02/12/23 09:30 02/19/23 10:04 02/12/23 09:30 Oxygen Delivery Method Room Air Charges/Coding Visit Charges Office Visits / Consults: 61196 OV L1 Est Physical Exam Const alert, oriented x3 and no apparent distress General Appearance: cooperative and comfortable HEENT normocephalic, hearing grossly normal bilaterally, external ears normal and external nose normal Head and Scalp: normal to inspection Eyes EOMs intact bilaterally General Eye: normal appearance of both eyes Neck full ROM General: normal visual inspection and trachea midline Resp normal respiratory effort, normal air movement, no retractions and no use of accessory muscles Effort and Inspection: able to speak in complete sentences Cardio regular rate and regular rhythm Heart Sounds: murmur Peripheral Pulses: brachial pulses present and radial pulses present Extremity Extremity Narrative: Bilateral lower extremities with significant edema. Varicose/reticular veins noted bilaterally. Normal capillary refill, appropriate warmth. Skin Wound Narrative: Red, rough patch of skin remains. No weeping noted. No significant erythema, excessive warmth, tenderness to palpation, foul odor. Neuro oriented x3, CN's II-XII intact bilaterally, moves all extremities, no focal motor deficits and no sensory deficits noted Psych cooperative, affect normal, speech normal and activity/motor behavior normal Debridement Note Debridement Note No debridement was completed: No debridement was completed today Post-Debridement Measurements and Additional Note: Post-Debridement Measurements/Treatment [facility] Nurse 1 - General Ulcer Assessment Start: 01/29/23 08:39 Freq: Status: Active Protocol: .JANLE Activity Type Activity Date Activity User E-sign Co-sign Detail Recorded Client Recorded Date Recorded By Document 01/29/23 08:45 [place] [id number] 01/29/23 08:59 AK Document 02/05/23 09:57 AK [id number] 02/05/23 10:00 AK Document 02/09/23 14:11 DL [id number] 02/09/23 14:17 DL Document 02/12/23 09:30 [facility] [id number] 02/12/23 09:48 [facility] Document 02/16/23 13:33 AK [id number] 02/16/23 13:34 AK Document 02/19/23 10:04 AK [id number] 02/19/23 10:06 AK 01/29/23 02/05/23 02/09/23 08:45 09:57 14:11 - Today's Visit Information Type of service Follow-up Visit Follow-up Visit Nurse-only (Physician/TRANSITIONAL LIVING SPECIALIST (Physician/TRANSITIONAL LIVING SPECIALIST Visit ) ) Arrival Mode Ambulatory Ambulatory, Ambulatory Walker Transfer Assistance None Transfer Assist (Other) Patient Identification Verified (Name & Yes No Yes ) Patient Requires Transmission-Based No No No Precautions Safety Precautions NA NA Vital Signs Temperature (97.8 F-99.1 F) 97.1 F L 97.2 F L 95.6 F L Temperature Source Temporal Temporal Temporal Pulse Rate (60-100) 73 69 74 Pulse Location Monitor Monitor Monitor Respiratory Rate (12-18) 18 Respiratory rate source Observation Oxygen Delivery Method Blood Pressure (90/60-120/80) 145/74 H 163/68 H 123/59 H Blood Pressure Mean (mm Hg) 97 99 80 Source Monitor Monitor Monitor Position Blood Pressure Location History Since Last Visit- (Skip if this is Patient's initial visit) Have you changed medications since your No No last visit? Any new allergies or adverse reactions No No Had a fall/change in ADL's that may No No increase risk of falls Signs or symptoms of abuse and/or No No neglect since last visit Have you been in the hospital since your No No last visit? Has dressing in place as prescribed No Yes Has compression in place as prescribed No Yes Has offloadiing in place as prescribed N/A N/A Experienced any changes in pain level or No No management Left Footwear Regular Shoe Regular Shoe Right Footwear Regular Shoe Regular Shoe Pain Scale: 0-10 Numeric Is Patient Pain Free? Yes No Yes 02/12/23 02/16/23 02/19/23 09:30 13:33 10:04 - Today's Visit Information Type of service Follow-up Visit Nurse-only Follow-up Visit (Physician/TRANSITIONAL LIVING SPECIALIST Visit (Physician/TRANSITIONAL LIVING SPECIALIST ) ) Arrival Mode Wheelchair Ambulatory, Wheelchair Walker Transfer Assistance Other Transfer Assist (Other) 1 Patient Identification Verified (Name & Yes Yes Yes ) Patient Requires Transmission-Based No No No Precautions Safety Precautions NA NA Vital Signs Temperature (97.8 F-99.1 F) 96.1 F L Temperature Source Temporal Pulse Rate (60-100) 108 H Pulse Location Monitor Monitor Respiratory Rate (12-18) 16 Respiratory rate source Observation Oxygen Delivery Method Room Air Blood Pressure (90/60-120/80) 99/51 L 159/62 H Blood Pressure Mean (mm Hg) 67 94 Source Monitor Monitor Position Sitting Blood Pressure Location Left Forearm History Since Last Visit- (Skip if this is Patient's initial visit) Have you changed medications since your No No No last visit? Any new allergies or adverse reactions No No No Had a fall/change in ADL's that may No No No increase risk of falls Signs or symptoms of abuse and/or No No No neglect since last visit Have you been in the hospital since your No No No last visit? Has dressing in place as prescribed Yes Yes Has compression in place as prescribed Yes Yes Yes Has offloadiing in place as prescribed N/A N/A N/A Experienced any changes in pain level or No No No management Left Footwear Regular Shoe Regular Shoe Regular Shoe Right Footwear Regular Shoe Regular Shoe Regular Shoe Pain Scale: 0-10 Numeric Is Patient Pain Free? Yes Yes No WC - Nurse 1 - General Ulcer Measurement Start: 01/29/23 08:39 Freq: Status: Active Protocol: Activity Type Activity Date Activity User E-sign Co-sign Detail Recorded Client Recorded Date Recorded By Document 01/29/23 08:45 AK [id number] 01/29/23 08:59 AK Document 02/05/23 09:57 AK [id number] 02/05/23 10:00 AK Document 02/09/23 14:11 DL [id number] 02/09/23 14:17 DL Document 02/12/23 09:30 BMF [id number] 02/12/23 09:48 BMF Document 02/19/23 10:04 AK [id number] 02/19/23 10:06 AK 01/29/23 02/05/23 02/09/23 08:45 09:57 14:11 Wound Center Nurse 1 #1 R MARTI -Combined with other wound No No -Current Size (cm) - Length 0.7 0.1 0.1 -Current Size (cm) - Width 0.5 0.1 0.1 -Current Size (cm) - Depth 0.1 0.1 0.1 -Total Square Cm 0.35 0.01 0.01 -Date of Last Picture (Recall this field) -Photo Taken Yes No -Epithelialization -Tunneling No No -Undermining/Tunneling No No -Circular Undermining No No -Change in Wound Grade/Stage No No -Exudate Amt None Present None Present None Present -Wound Margin Distinct, Distinct, Flat & Intact Outline Outline Attached Attached -Granulation Amt Large (67-100%) None Present (0 Large (67-100%) %) -Granulation Quality [place] N/A [place] -Slough/Fibrin No No -Necrosis Amt None Present (0 None Present (0 None Present (0 %) %) %) -Structure Exposed N/A N/A N/A -Texture (Kiya-wound Skin Appearance) No Abnormality, No Abnormality, Localized Edema Assessed Assessed -Moisture (Kiya-wound Skin Appearance) No Abnormality, Assessed No Abnormality Assessed -Color (Kiya-wound Skin Appearance) No Abnormality, No Abnormality No Abnormality Assessed -Temperature (Kiya-wound Skin No Abnormality No Abnormality No Abnormality Appearance) (Pt Warm) (Pt Warm) (Pt Warm) -Tenderness on Palpation (Kiya-wound No No No Skin Appearance) -Ulcer Cleansing Rinsed/ Soap and Water Soap and Water Irrigated with Saline -Foul Odor after Cleansing No No No -Anesthetic Used 4% Lidocaine Solution Lower Limb Edema Present Right Calf (cm) 54 54 49 Right Ankle (cm) 32 31 31.1 Left Calf (cm) 53 52 47.8 Left Ankle (cm) 33 31 29 02/12/23 02/19/23 09:30 10:04 Wound Center Nurse 1 #1 R MARTI -Combined with other wound No -Current Size (cm) - Length 0 -Current Size (cm) - Width 0 -Current Size (cm) - Depth 0 -Total Square Cm 0 -Date of Last Picture (Recall this 02/12/23 field) -Photo Taken Yes -Epithelialization Large 67-100% -Tunneling -Undermining/Tunneling -Circular Undermining -Change in Wound Grade/Stage -Exudate Amt -Wound Margin -Granulation Amt -Granulation Quality -Slough/Fibrin -Necrosis Amt -Structure Exposed -Texture (Kiya-wound Skin Appearance) Assessed -Moisture (Kiya-wound Skin Appearance) Assessed -Color (Kiya-wound Skin Appearance) Assessed -Temperature (Kiya-wound Skin No Abnormality Appearance) (Pt Warm) -Tenderness on Palpation (Kiya-wound No Skin Appearance) -Ulcer Cleansing Soap and Water -Foul Odor after Cleansing -Anesthetic Used Lower Limb Edema Present Yes Right Calf (cm) 52 47.5 Right Ankle (cm) 30.5 30 Left Calf (cm) 51.6 45.9 Left Ankle (cm) 29.7 29 WC - Nurse 2 - General Ulcer CM Notes Start: 01/29/23 08:39 Freq: Status: Active Protocol: Activity Type Activity Date Activity User E-sign Co-sign Detail Recorded Client Recorded Date Recorded By Document 01/29/23 12:32 PL [id number] 01/29/23 12:32 PL 01/29/23 12:32 Wound Center Nurse 2 #1 R MARTI -Procedure Performed No Pain Scale: 0-10 Numeric Is Patient Pain Free? Yes WC - Nurse 3 - General Ulcer D/C NN Start: 01/29/23 08:39 Freq: Status: Active Protocol: Activity Type Activity Date Activity User E-sign Co-sign Detail Recorded Client Recorded Date Recorded By Document 01/29/23 10:16 MT [id number] 01/29/23 10:17 MT Document 02/05/23 15:04 AK [id number] 02/05/23 15:05 AK Document 02/09/23 14:11 DL [id number] 02/09/23 14:17 DL Document 02/12/23 10:20 [facility] [id number] 02/12/23 10:21 BMF Document 02/16/23 13:33 AK [id number] 02/16/23 13:34 AK 01/29/23 02/05/23 02/09/23 10:16 15:04 14:11 Wound Care Center Nurse 3 #1 R MARTI -Ulcer Cleansing Soap and Water Not Cleansed Soap and Water -Foul Odor after Cleansing No No -Negative Pressure Wound Therapy N/A -Primary Dressing Applied NonAdherent Contact Layer -Other Dressing unna boots bilat -Primary Dressing Covered/Secured with Dry Gauze & Roll Gauze, Secured with Tape bilat -Lotion applied to leg before Yes compression wrap -Multi-Layered Wrap Application Unna Boot - Multi-Layer Multi-Layer Bilateral ($) Comp - Bilat ($ Comp - Bilat ($ ) ) -Unna Boots (Bilat) ($) 2 -Other Treatment Response Procedure Tolerated Well Vital Signs Temperature (97.8 F-99.1 F) 95.6 F L Temperature Source Temporal Pulse Rate (60-100) 74 Pulse Location Monitor Respiratory Rate (12-18) 18 Respiratory rate source Observation Blood Pressure (90/60-120/80) 123/59 H Blood Pressure Mean (mm Hg) 80 Source Monitor Pain Scale: 0-10 Numeric Is Patient Pain Free? Yes Yes Yes WC - Visit Discharge Discharge Condition Stable Stable Stable Ambulatory Status Ambulatory, Ambulatory Ambulatory Walker Transportation Private Auto Private Auto Private Auto Medication Reconcilliation completed & No Yes provided to patient/care provider Clinical Summary of Care Provided Yes Yes Notes: pt and daughter both verbalized understanding of unna boots. They understand they need to stay dry and stay on for a week until the pt next appt. Facility Type Home Health 02/12/23 02/16/23 10:20 13:33 Wound Care Center Nurse 3 #1 R MARTI -Ulcer Cleansing -Foul Odor after Cleansing -Negative Pressure Wound Therapy -Primary Dressing Applied -Other Dressing -Primary Dressing Covered/Secured with bilat -Lotion applied to leg before No compression wrap -Multi-Layered Wrap Application Multi-Layer Multi-Layer Comp - Bilat ($ Comp - Bilat ($ ) ) -Unna Boots (Bilat) ($) -Other ADAPTIC ON RIGHT LEG MARTI REDNESS Treatment Response Procedure Tolerated Well Vital Signs Temperature (97.8 F-99.1 F) Temperature Source Pulse Rate (60-100) Pulse Location Respiratory Rate (12-18) Respiratory rate source Blood Pressure (90/60-120/80) Blood Pressure Mean (mm Hg) Source Pain Scale: 0-10 Numeric Is Patient Pain Free? Yes Yes WC - Visit Discharge Discharge Condition Stable Stable Ambulatory Status Wheelchair Ambulatory, Walker Transportation Private Auto Private Auto Medication Reconcilliation completed & Yes provided to patient/care provider Clinical Summary of Care Provided Yes Notes: Facility Type Assessment/Plan Assessment/Plan (1) Bilateral lower extremity edema: CODE(S): R60.0 - Localized edema (2) Venous insufficiency (chronic) (peripheral): CODE(S): I87.2 - Venous insufficiency (chronic) (peripheral) (3) Lymphedema: CODE(S): I89.0 - Lymphedema, not elsewhere classified PLAN: Plan Will continue 3M wraps for compression. She will come in for nurse visits on Tuesdays and Wednesday. Continue to elevate feet when resting. Continue with Lasix as prescribed/monitored by PCP. Complete BMP ordered to check kidney function since restarting lasix. Encouraged patient to reach out to derm to schedule appt for evaluation of the rough/scaly red patch on R lower leg. Reduce carbs/sugar and increase protein in diet. Return to see me in clinic in 2 weeks, continue with nurse visits until then.
[2023-02-23 10:18] VITALS: BP 127/66; PULSE 65; RESP 20; TEMP 36.3
[2023-02-26 13:11] VITALS: BP 149/60; PULSE 71; RESP 22; TEMP 36.4
== END 2023-02-26 23:59 | disposition home or self-care (01) ==
LOC: WC 14:00
PROVIDERS: PCP Nurse Practitioner Family; Referring Provider Physician Assistant; Visit Provider Physician Assistant
DX: L97.911 Non-pressure chronic ulcer of unspecified part of right lower leg limited to breakdown of skin (principal); I25.10 Atherosclerotic heart disease of native coronary artery without angina pectoris; R60.0 Localized edema; I89.0 Lymphedema, not elsewhere classified; Z95.5 Presence of coronary angioplasty implant and graft; I87.2 Venous insufficiency (chronic) (peripheral)
CPT/HCPCS: 29580; 29581; 93970; 99213; G0463

== ENCOUNTER 2023-03-19 09:30 | Outpatient (RCR) | payer MEDICARE, SELFPAY ==
[2023-02-27 00:11] VITALS: BP 149/60; PULSE 71; RESP 22; TEMP 36.4
[2023-03-02 12:44] VITALS: BP 152/63; PULSE 65; RESP 22; TEMP 36.2
[2023-03-05 09:47] VITALS: BP 156/83; PULSE 70; RESP 16; TEMP 35.8
--- NOTE | 2023-03-05 10:00 | PN.PCM_ITS ---
History of Present Illness Date of Service: 03/05/23 Chief Complaint: RLE wound History of Wound: Patient presents today for evaluation of recurrent RLE wound cluster. She presents now because she is scheduled for a R total knee replacement in April and was told this wound would need to be healed before surgery could proceed. Patient's past medical history is significant for CAD s/p stent and lymphedema. She does not think she has CHF and no records on file to suggest this diagnosis. She is prescribed torsemide but does not take it because she does not like getting up at night to use the restroom. She does have wraps specific for lymphedema (sounds like Juzo wraps) but does not wear them as they are difficult to apply. She reports this R lower leg wound is recurrent over the last couple of years. It is always in the same location. She denies wounds occurring anywhere else on RLE or LLE. She states that at one point she was told this might be psoriasis, but has never been evaluated through biopsy or otherwise by dermatology. She does not recall recent trauma, but states it is possible she bumped this area. She denies history of VTE, past venous or arterial interventions. Subjective Subjective She did see Dr. Alicea with ortho today, her surgery may get moved up from April. He is happy with the RLE wound/open area being healed currently. She continues with 3M wraps, keeping up with nurse visits for changes. Wraps were noted to be a bit loose today. She continues with lasix. No open wounds, still with the red/rough patch on right marti. Still with significant swelling. Objective Data Objective Data Vital Signs: Vital Signs Temp Pulse Resp BP 96.5 F L 70 16 156/83 H 03/05/23 09:47 03/05/23 09:47 03/05/23 09:47 03/05/23 09:47 Charges/Coding Visit Charges Office Visits / Consults: 20089 OV L3 Est Multi Select Codes Visit Charges Office Visit/Consults: 81078 OV L3 Est Physical Exam Const alert, oriented x3 and no apparent distress General Appearance: cooperative and comfortable HEENT normocephalic, hearing grossly normal bilaterally, external ears normal and external nose normal Head and Scalp: normal to inspection Eyes EOMs intact bilaterally General Eye: normal appearance of both eyes Neck full ROM General: normal visual inspection and trachea midline Resp normal respiratory effort, normal air movement, no retractions and no use of accessory muscles Effort and Inspection: able to speak in complete sentences Cardio regular rate and regular rhythm Heart Sounds: murmur Peripheral Pulses: brachial pulses present and radial pulses present Extremity Extremity Narrative: Bilateral lower extremities with significant edema. Varicose/reticular veins noted bilaterally. Normal capillary refill, appropriate warmth. Skin Wound Narrative: Red, rough patch of skin remains. No weeping noted. No significant erythema, excessive warmth, tenderness to palpation, foul odor. Neuro oriented x3, CN's II-XII intact bilaterally, moves all extremities, no focal motor deficits and no sensory deficits noted Psych cooperative, affect normal, speech normal and activity/motor behavior normal Debridement Note Debridement Note No debridement was completed: No debridement was completed today Post-Debridement Measurements and Additional Note: Post-Debridement Measurements/Treatment - Nurse 1 - General Ulcer Assessment Start: 03/02/23 12:44 Freq: Status: Active Protocol: NEHEMIAH.[email or web address] Manuel Activity Type Activity Date Activity User E-sign Co-sign Detail Recorded Client Recorded Date Recorded By Document 03/02/23 12:44 DL [id number] 03/02/23 12:53 DL Document 03/05/23 09:47 [id number] 03/05/23 09:49 03/02/23 03/05/23 12:44 09:47 - Today's Visit Information Type of service Nurse-only Follow-up Visit Visit (Physician/SECTION LEADER SCREEN PRINTING ) Arrival Mode Ambulatory, Ambulatory, Walker Walker Transfer Assistance None Patient Identification Verified (Name & Yes ) Patient Requires Transmission-Based No No Precautions Vital Signs Temperature (97.8 F-99.1 F) 97.2 F L 96.5 F L Temperature Source Temporal Temporal Pulse Rate (60-100) 65 70 Pulse Location Monitor Respiratory Rate (12-18) 22 H 16 Respiratory rate source Observation Observation Blood Pressure (90/60-120/80) 152/63 H 156/83 H Blood Pressure Mean (mm Hg) 92 107 Source Monitor Monitor Position Semi-Fowlers Blood Pressure Location Right Arm History Since Last Visit- (Skip if this is Patient's initial visit) Have you changed medications since your No No last visit? Any new allergies or adverse reactions No No Had a fall/change in ADL's that may No No increase risk of falls Signs or symptoms of abuse and/or No No neglect since last visit Have you been in the hospital since your No No last visit? Has dressing in place as prescribed Yes Yes Has compression in place as prescribed Yes Yes Has offloadiing in place as prescribed N/A N/A Experienced any changes in pain level or No No management Left Footwear Regular Shoe Right Footwear Regular Shoe Pain Scale: 0-10 Numeric Is Patient Pain Free? Yes Yes - Nurse 1 - General Ulcer Measurement Start: 03/02/23 12:44 Freq: Status: Active Protocol: Activity Type Activity Date Activity User E-sign Co-sign Detail Recorded Client Recorded Date Recorded By Document 03/02/23 12:44 DL [id number] 03/02/23 12:53 DL Document 03/05/23 09:47 JF [id number] 03/05/23 09:49 JF 03/02/23 03/05/23 12:44 09:47 Wound Center Nurse 1 Lower Limb Edema Present Yes Right Calf (cm) 49.7 49.6 Right Ankle (cm) 29.8 29 Left Calf (cm) 48 49.5 Left Ankle (cm) 29.3 28.7 - Nurse 3 - General Ulcer D/C NN Start: 03/02/23 12:44 Freq: Status: Active Protocol: Activity Type Activity Date Activity User E-sign Co-sign Detail Recorded Client Recorded Date Recorded By Document 03/02/23 12:44 DL [id number] 03/02/23 12:53 DL 03/02/23 12:44 Vital Signs Temperature (97.8 F-99.1 F) 97.2 F L Temperature Source Temporal Pulse Rate (60-100) 65 Pulse Location Monitor Respiratory Rate (12-18) 22 H Respiratory rate source Observation Blood Pressure (90/60-120/80) 152/63 H Blood Pressure Mean (mm Hg) 92 Source Monitor Pain Scale: 0-10 Numeric Is Patient Pain Free? Yes Wound Care Center Nurse 3 claire -Multi-Layered Wrap Application Multi-Layer Comp - Bilat ($ ) Treatment Response Procedure Tolerated Well WC - Visit Discharge Discharge Condition Stable Ambulatory Status Ambulatory, Walker Transportation Private Auto Assessment/Plan Assessment/Plan (1) Bilateral lower extremity edema: CODE(S): R60.0 - Localized edema (2) Venous insufficiency (chronic) (peripheral): CODE(S): I87.2 - Venous insufficiency (chronic) (peripheral) (3) Lymphedema: CODE(S): I89.0 - Lymphedema, not elsewhere classified PLAN: Plan Goal is to manage swelling as best as possible to prevent recurrence of RLE wound which could affect her planned R TKR. Will continued with 3M wraps for now as I don't think compression stockings would be very difficult for her to apply and therefore lead to poor compliance. Will also refer to lymphedema clinic to see if they can provide further resources such as lymphedema pumps and wraps which may be easier to apply. Continue to elevate feet as often as possible. Try to minimize salt in diet and manage blood sugars well. Return to see me in clinic in 2 weeks, continue with nurse visits until then.
[2023-03-09 13:25] VITALS: BP 127/70; PULSE 71; RESP 20; TEMP 36.2
[2023-03-12 13:17] VITALS: BP 144/79; PULSE 96; RESP 22; TEMP 36.4
[2023-03-16 08:30] VITALS: BP 139/67; PULSE 71; RESP 22; TEMP 36.2
[2023-03-19 09:44] VITALS: BP 152/67; PULSE 68; RESP 18; TEMP 36.1
--- NOTE | 2023-03-19 11:31 | PCM.WC.PN ---
History of Present Illness Date of Service: 03/19/23 Chief Complaint: RLE wound History of Wound: Patient presents today for evaluation of recurrent RLE wound cluster. She presents now because she is scheduled for a R total knee replacement in April and was told this wound would need to be healed before surgery could proceed. Patient's past medical history is significant for CAD s/p stent and lymphedema. She does not think she has CHF and no records on file to suggest this diagnosis. She is prescribed torsemide but does not take it because she does not like getting up at night to use the restroom. She does have wraps specific for lymphedema (sounds like Juzo wraps) but does not wear them as they are difficult to apply. She reports this R lower leg wound is recurrent over the last couple of years. It is always in the same location. She denies wounds occurring anywhere else on RLE or LLE. She states that at one point she was told this might be psoriasis, but has never been evaluated through biopsy or otherwise by dermatology. She does not recall recent trauma, but states it is possible she bumped this area. She denies history of VTE, past venous or arterial interventions. Subjective Subjective Her right TKR is now scheduled for April 21. She says she has a lot to do before then but is very happy it will be happening sooner. The initial open area for which I saw her remains closed. Her BLE edema has improved with 3M wraps over the last several weeks. We did refer to lymphedema clinic and she has an appt on Wednesday. We did also apply for lymphedema pumps and she indicated these have been ordered. Objective Data Objective Data Vital Signs: Vital Signs Temp Pulse Resp BP O2 Del Method 96.9 F L 68 18 152/67 H Room Air 03/19/23 09:44 03/19/23 09:44 03/19/23 09:44 03/19/23 09:44 03/19/23 09:44 Oxygen Delivery Method Room Air Charges/Coding Visit Charges Office Visits / Consults: 21171 OV L3 Est Physical Exam Const alert, oriented x3 and no apparent distress General Appearance: cooperative and comfortable HEENT normocephalic, hearing grossly normal bilaterally, external ears normal and external nose normal Head and Scalp: normal to inspection Eyes EOMs intact bilaterally General Eye: normal appearance of both eyes Neck full ROM General: normal visual inspection and trachea midline Resp normal respiratory effort, normal air movement, no retractions and no use of accessory muscles Effort and Inspection: able to speak in complete sentences Cardio regular rate and regular rhythm Heart Sounds: murmur Peripheral Pulses: brachial pulses present and radial pulses present Extremity Extremity Narrative: Bilateral lower extremities with significant edema. Varicose/reticular veins noted bilaterally. Normal capillary refill, appropriate warmth. Neuro oriented x3, CN's II-XII intact bilaterally, moves all extremities, no focal motor deficits and no sensory deficits noted Psych cooperative, affect normal, speech normal and activity/motor behavior normal Debridement Note Debridement Note No debridement was completed: No debridement was completed today Post-Debridement Measurements and Additional Note: Post-Debridement Measurements/Treatment - Nurse 1 - General Ulcer Assessment Start: 03/02/23 12:44 Freq: Status: Active Protocol: CHELY Activity Type Activity Date Activity User E-sign Co-sign Detail Recorded Client Recorded Date Recorded By Document 03/02/23 12:44 DL [id number] 03/02/23 12:53 DL Document 03/05/23 09:47 [id number] 03/05/23 09:49 JF Document 03/09/23 13:25 DL [id number] 03/09/23 13:47 DL Document 03/12/23 13:17 DL [id number] 03/12/23 13:35 DL Document 03/16/23 08:30 DL [id number] 03/16/23 08:36 DL Document 03/19/23 09:44 [facility] [id number] 03/19/23 09:45 [facility] 03/02/23 03/05/23 03/09/23 12:44 09:47 13:25 - Today's Visit Information Type of service Nurse-only Follow-up Visit Nurse-only Visit (Physician/CHIEF COMMUNICATIONS OFFICER Visit ) Arrival Mode Ambulatory, Ambulatory, Ambulatory, Walker Walker Wheelchair Transfer Assistance None None Accompanied by Patient Identification Verified (Name & Yes Yes ) Patient Requires Transmission-Based No No Yes Precautions Safety Precautions Fall Prevention Vital Signs Temperature (97.8 F-99.1 F) 97.2 F L 96.5 F L 97.2 F L Temperature Source Temporal Temporal Oral Pulse Rate (60-100) 65 70 71 Pulse Location Monitor Monitor Respiratory Rate (12-18) 22 H 16 20 H Respiratory rate source Observation Observation Observation Oxygen Delivery Method Blood Pressure (90/60-120/80) 152/63 H 156/83 H 127/70 H Blood Pressure Mean (mm Hg) 92 107 89 Source Monitor Monitor Monitor Position Semi-Fowlers Blood Pressure Location Right Arm History Since Last Visit- (Skip if this is Patient's initial visit) Have you changed medications since your No No No last visit? Any new allergies or adverse reactions No No No Had a fall/change in ADL's that may No No No increase risk of falls Signs or symptoms of abuse and/or No No No neglect since last visit Have you been in the hospital since your No No No last visit? Has dressing in place as prescribed Yes Yes Yes Has compression in place as prescribed Yes Yes Yes Has offloadiing in place as prescribed N/A N/A N/A Experienced any changes in pain level or No No Yes management Left Footwear Regular Shoe Right Footwear Regular Shoe Pain Scale: 0-10 Numeric Is Patient Pain Free? Yes Yes Yes 03/12/23 03/16/23 03/19/23 13:17 08:30 09:44 - Today's Visit Information Type of service Nurse-only Nurse-only Follow-up Visit Visit Visit (Physician/CHIEF COMMUNICATIONS OFFICER ) Arrival Mode Ambulatory Ambulatory, Ambulatory, Walker Walker Transfer Assistance None Transfer Board None Accompanied by friend in waiting room Patient Identification Verified (Name & Yes Yes Yes ) Patient Requires Transmission-Based No No No Precautions Safety Precautions Vital Signs Temperature (97.8 F-99.1 F) 97.5 F L 97.2 F L 96.9 F L Temperature Source Temporal Temporal Temporal Pulse Rate (60-100) 96 71 68 Pulse Location Monitor Monitor Monitor Respiratory Rate (12-18) 22 H 22 H 18 Respiratory rate source Observation Observation Observation Oxygen Delivery Method Room Air Blood Pressure (90/60-120/80) 144/79 H 139/67 H 152/67 H Blood Pressure Mean (mm Hg) 100 91 95 Source Monitor Monitor Monitor Position Sitting Blood Pressure Location Left Forearm History Since Last Visit- (Skip if this is Patient's initial visit) Have you changed medications since your No No No last visit? Any new allergies or adverse reactions No No No Had a fall/change in ADL's that may No No No increase risk of falls Signs or symptoms of abuse and/or No No No neglect since last visit Have you been in the hospital since your No No No last visit? Has dressing in place as prescribed No No Yes Has compression in place as prescribed Yes Yes Yes Has offloadiing in place as prescribed N/A N/A N/A Experienced any changes in pain level or No No No management Left Footwear Regular Shoe Right Footwear Regular Shoe Pain Scale: 0-10 Numeric Is Patient Pain Free? Yes Yes Yes - Nurse 1 - General Ulcer Measurement Start: 03/02/23 12:44 Freq: Status: Active Protocol: Activity Type Activity Date Activity User E-sign Co-sign Detail Recorded Client Recorded Date Recorded By Document 03/02/23 12:44 DL [id number] 03/02/23 12:53 DL Document 03/05/23 09:47 JF [id number] 03/05/23 09:49 JF Document 03/12/23 13:17 DL [id number] 03/12/23 13:35 DL Document 03/16/23 08:30 DL [id number] 03/16/23 08:36 DL Document 03/19/23 09:44 [facility] [id number] 03/19/23 09:45 BMF 03/02/23 03/05/23 03/12/23 12:44 09:47 13:17 Wound Center Nurse 1 Lower Limb Edema Present Yes Right Calf (cm) 49.7 49.6 48 Right Ankle (cm) 29.8 29 30 Right Foot (cm) 49 Left Calf (cm) 48 49.5 28.5 Left Ankle (cm) 29.3 28.7 03/16/23 03/19/23 08:30 09:44 Wound Center Nurse 1 Lower Limb Edema Present Yes Right Calf (cm) 49.5 46.2 Right Ankle (cm) 32 28.9 Right Foot (cm) Left Calf (cm) 49.3 49 Left Ankle (cm) 30 30 - Nurse 2 - General Ulcer CM Notes Start: 03/02/23 12:44 Freq: Status: Active Protocol: Activity Type Activity Date Activity User E-sign Co-sign Detail Recorded Client Recorded Date Recorded By Document 03/19/23 11:09 PL [id number] 03/19/23 11:10 PL 03/19/23 11:09 Pain Scale: 0-10 Numeric Is Patient Pain Free? Yes WC - Nurse 3 - General Ulcer D/C NN Start: 03/02/23 12:44 Freq: Status: Active Protocol: Activity Type Activity Date Activity User E-sign Co-sign Detail Recorded Client Recorded Date Recorded By Document 03/02/23 12:44 DL [id number] 03/02/23 12:53 DL Document 03/05/23 09:16 PL [id number] 03/08/23 09:16 PL Document 03/09/23 13:25 DL [id number] 03/09/23 13:47 DL Document 03/12/23 13:17 DL [id number] 03/12/23 13:35 DL Document 03/16/23 08:30 DL [id number] 03/16/23 08:36 DL Document 03/19/23 10:02 BMF [id number] 03/19/23 10:03 BMF 03/02/23 03/05/23 03/09/23 12:44 09:16 13:25 Vital Signs Temperature (97.8 F-99.1 F) 97.2 F L 97.2 F L Temperature Source Temporal Oral Pulse Rate (60-100) 65 71 Pulse Location Monitor Monitor Respiratory Rate (12-18) 22 H 20 H Respiratory rate source Observation Observation Blood Pressure (90/60-120/80) 152/63 H 127/70 H Blood Pressure Mean (mm Hg) 92 89 Source Monitor Monitor Pain Scale: 0-10 Numeric Is Patient Pain Free? Yes Yes Yes Wound Care Center Nurse 3 Bilateral -Lotion applied to leg before compression wrap -Multi-Layered Wrap Application Multi-Layer Multi-Layer Comp - Bilat ($ Comp - Bilat ($ ) ) -Unna Boots (Bilat) ($) -Other claire -Multi-Layered Wrap Application Multi-Layer Comp - Bilat ($ ) Treatment Response Procedure Procedure Tolerated Well Tolerated Well WC - Visit Discharge Discharge Condition Stable Stable Ambulatory Status Ambulatory, Ambulatory Walker Transportation Private Auto Private Auto Accompanied by Notes: Pt Voices no complaints. 03/12/23 03/16/23 03/19/23 13:17 08:30 10:02 Vital Signs Temperature (97.8 F-99.1 F) 97.5 F L 97.2 F L Temperature Source Temporal Temporal Pulse Rate (60-100) 96 71 Pulse Location Monitor Monitor Respiratory Rate (12-18) 22 H 22 H Respiratory rate source Observation Observation Blood Pressure (90/60-120/80) 144/79 H 139/67 H Blood Pressure Mean (mm Hg) 100 91 Source Monitor Monitor Pain Scale: 0-10 Numeric Is Patient Pain Free? Yes Yes Yes Wound Care Center Nurse 3 Bilateral -Lotion applied to leg before Yes compression wrap -Multi-Layered Wrap Application Unna Boot - Multi-Layer Multi-Layer Bilateral ($) Comp - Bilat ($ Comp - Bilat ($ ) ) -Unna Boots (Bilat) ($) 2 -Other applied per jf rn claire -Multi-Layered Wrap Application Treatment Response Procedure Procedure Procedure Tolerated Well Tolerated Well Tolerated Well WC - Visit Discharge Discharge Condition Stable Stable Stable Ambulatory Status Ambulatory, Ambulatory, Ambulatory, Walker Walker Walker Transportation Private Auto Private Auto Private Auto Accompanied by friend in lobby Notes: Assessment/Plan Assessment/Plan (1) Bilateral lower extremity edema: CODE(S): R60.0 - Localized edema (2) Venous insufficiency (chronic) (peripheral): CODE(S): I87.2 - Venous insufficiency (chronic) (peripheral) (3) Lymphedema: CODE(S): I89.0 - Lymphedema, not elsewhere classified PLAN: Plan Will wrap with 3M wraps once more this week. Patient has an appointment at the lymphedema clinic on Wednesday, they can take the wraps down at that time. Provided her with a compression for compression stockings, can order ones with zippers for ease of application and also instructed patient to inquire about donning assist devices. Ordered lower compression, but two pairs. I advise patient to wear both pairs together. Hopefully the managed care liaison compression will be easier to apply. We discussed the importance of consistently wearing compression to minimize swelling and reduce risk of wound recurrence. She acknowledged understanding of the above. I also advised patient to reach out to schedule appt with dermatology for further evaluation of this red/rough patch on her leg. She stated she would. Patient is discharged from [facility]. Return as needed.
== END 2023-03-22 09:10 | disposition home or self-care (01) ==
LOC: WC 09:30
PROVIDERS: PCP Nurse Practitioner Family; Referring Provider Physician Assistant; Visit Provider Physician Assistant
DX: R60.0 Localized edema (principal); I25.10 Atherosclerotic heart disease of native coronary artery without angina pectoris; I89.0 Lymphedema, not elsewhere classified; I87.2 Venous insufficiency (chronic) (peripheral)
CPT/HCPCS: 29580; 29581; 99213; G0463

== ENCOUNTER 2023-04-06 10:00 | Outpatient (RCR) | payer MEDICARE, SELFPAY ==
--- NOTE | 2023-03-22 18:42 | HP.OTEVAL_ITS ---
Patient's Visit Information NACHO WHEELER is a 77 year old F, referred to Occupational Therapy by DELVIS Hunter, with a diagnosis of lymphedema. Date of Evaluation: 03/22/23 Occupational Therapist: Brandi Murcia, LIONELR/Janine, CHT - Subjective This 77 year old female was seen for OT eval with dx of lymphedema . pt states s he continues to get a wound on her right leg. pt states she needed to have her wound healed to undergo right TKR April 21 she is scheduled. pt has Velcro compression alternatives and on pt is going to fitted for Leg pump to help with her circulation. pt state she just it trying to geek legs down so she can have her knee replacement. Pt states for years she would get swelling on and off. She would like to know what she can do to control swelling more so she does not get seeping wound or blisters. - Lymphedema (Circumferential Measure) Mid-foot: left 21cm right 21cm Ankle: left 28cm right 33cm Lower calf: left 35cm right 43cm Largest calf: left 48cm right 45cm Below knee: left 50 cm right 50cm Lower Exremity Comments: pt wound superficial- clean and dry looks good - Lower Limb Functional Index Lower Extremity Functional Score: 10 - Goals Demonstrate a 20% reduction in edema by d/c: Yes Demonstrate adequate knowledge of self-massage by 2nd week: Yes Demonstrate adequate knowledge skin care/prec by 2nd week: Yes Demonstrate adequate knowledge therapeutic exercises by d/c: Yes Select approp compression garment w/donning/care/wear by d/c: Yes Voice need to replace compression garment every 4-6mo by dc: Yes - Rehabilitation General Assessment: pt demo stage II lymphedema and demo need for skilled OT services 2-3 visits to ed, pt on life long mtg of lymphedema. Today therapist ed. pt to initiate use of her velcro closure compression sleeves (at all times) until she get compression socks 20-30mmHg. Then advised to wear velcro compression garment at night and socks during the day. pt was receptive to this plan as the velcro compression garment is Hot. pt was given information on purchasing compression socks. pt to return in 2 weeks after she receives her larissa e vaso compression unit. today pt was also ed. in skin care and precautions. therapy will also include lymph stim ex. and ed. on self manual lymph massage. pt demo understanding and agree to POC. Rehabilitation Potential: Questionable - Anticipated Interventions ADL Training, Education re assistive Equipment, Education re Diagnosis, Education re Life-long lymphedema Management, Education re Skin Care and Precautions, Education re Self Massage Techniques, Education re Correct Donning Tech,Care&Wearing Sched Comp Garments, Caregiver Training, Home Program - Visit Plan Frequency: 1-2x /Week Duration: 3 Weeks TEXT: Thank you for the opportunity to evaluate your patient. For Medicare and Medicare HMO plans, please review the plan of care and approve it. It will need to be FAXED BACK to us at [phone] for Medicare purposes. Please let me know if there are questions or concerns regarding this plan of care. Physician Signature: Date:
--- NOTE | 2023-06-30 14:37 | HP.OTDCNRP_ITS ---
Patient Information Patient Information: NACHO WHEELER was seen in my office for initial evaluation on 03/22/23. The following Plan of Care was established for this patient: POC Established Initial Frequency: 1-2x /Week Initial Duration: 3 Weeks Anticipated Interventions Anticipated Interventions: ADL Training, Education re assistive Equipment, Education re Diagnosis, Education re Life-long lymphedema Management, Education re Skin Care and Precautions, Education re Self Massage Techniques, Education re Correct Donning Tech,Care&Wearing Sched Comp Garments, Caregiver Training and Home Program Last Seen Last Seen: This patient was last seen in our office 04/06/23. Pertinent comments regarding their Occupational therapy will appear below: pt was seen for OT eval and 2 follow up session with dx of lymphedema. pt demo understanding of mtg of lymphedema and was going to look into seismic prospecting observer helper to assist with her LE. At this time pt has not scheduled further apts and due to time lapse in services pt d/c. At this point I will be discontinuing this patient from occupational therapy. I would be happy to see this patient again in the future if found appropriate by the physician. Thank you! Brandi Murcia, OTR/L, CHT
== END 2023-04-06 19:00 | disposition home or self-care (01) ==
LOC: OT 10:00
PROVIDERS: PCP Nurse Practitioner Family; Referring Provider Physician Assistant; Visit Provider Physician Assistant
DX: I89.0 Lymphedema, not elsewhere classified (principal)
CPT/HCPCS: 97166; 97530

== ENCOUNTER → 2023-04-08 | Outpatient (CLI) | payer MEDICARE, SELFPAY ==
--- NOTE | 2023-04-05 11:50 | PCM.HP.BLA ---
History and Physical History and Physical? Patient Name: Shaylee Avila GwinettDOB: 1945 From:? JEISON GARCÍA PA-C? DATE OF SURGERY:? 04/21/2023 SCHEDULED PROCEDURE: ROBOTIC ASSISTED RIGHT TOTAL KNEE ARTHROPLASTY HISTORY OF PRESENT ILLNESS: Patient is a 77-year-old female with ongoing right knee pain for several years.? It hurts her all the time.? Especially with stairs, driving, sitting for extended periods of time or walking for any distances.? It does especially bother her while getting in and out of the car.? She feels that her activities of daily living and leisure activities are limited due to this knee pain and unable to get into a car comfortably.? She has attempted rest, ice, heat, elevation, cortisone injections, weight loss, home exercises compression and oral medications all without significant relief from her knee.? She is status post left total knee arthroplasty and happy with her outcome and progress.? Overall since failing conservative treatment options she would like to proceed with a robotic-assisted right total knee arthroplasty REVIEW OF SYSTEMS: Review Of Systems: Constitutional: Denies anorexia, change in appetite, fever, difficulty sleeping, weight change. Cardiovasular: Reports peripheral vascular disease, but denies chest pain, heart murmur and irregular heartbeat. Respiratory: Denies asthma, cough, pneumonia, sleep apnea, shortness of breath, tuberculosis and wheezing. Gastrointestinal: Denies constipation, diarrhea, heartburn, nausea, rectal itching, bloody stools and vomiting. Genitourinary: . (F Genital Sx) Denies incontinence. Musculoskeletal: Reports leg swelling, pain and trouble walking, but denies weakness. Skin: Denies Raynaud's, history of shingles and tattoo. Neurological: Denies ambulatory dysfunction, dizziness, numbness/tingling and tremor. Psychiatric: Reports anxiety and depression, but denies insomnia, mental illness and stress. Hematologic/Lymphatic: Denies anemia, bleeding/bruising tendency and past transfusion. Reviewed, no changes. PAST MEDICAL HISTORY: Advance Care Plan: Other Directive, POA Effective Date: 07/08/2017 Other Directive, LIVING WILL Effective Date: 07/08/2017 Past Medical History: Medical Problems: Arthritis, High Blood Pressure, Hypercholesterolemia, Thyroid Disease Covid- 19 - (2019) (2021) Covid-19 Vaccinated Accidents: Fracture - FALL 2010? Surgical Hx: Appendectomy - 1957 Tonsillectomy - 1947 Tubal Ligation - 1978 Stent, Shoulder Replacement LT, Gallbladder LT TKA - (2013) Anesthesia Complications: Anesthesia Complications - 2010 Hallucinations Assistive Devices: Glasses, Walker Reviewed and updated. SOCIAL HISTORY: Social History: Marital: .Occupation: Retired.Work Status: Retired.Hand Dominance: Right-handed. Personal Habits:? Cigarette Use: Never Smoked Cigarettes.Smokeless Tobacco: Never Used Smokeless Tobacco.E-Cigarette Use: Never used.Alcohol: Denies use.Drug Use: Denies Use.Enjoy Exercising: Never Exercises. Reviewed, no changes. VITALS: Ht: 63 Wt: 246lb Wt k.586 BMI: 43.6 BP: 138/82 Pulse: 85 Resp: 16 T: 97.3 T: 36.3C Pain Level: 10 O2SatR: 95 ALLERGIES: Penicillin Sulfur Indocin Codeine? MEDICATIONS: Tramadol HCL 50 mg 1-2 by mouth every 8 hours as needed pain, Levothyroxine Sodium 100 mcg 1 by mouth every day, Lisinopril 10 mg 1 by mouth every day, Pantoprazole Sodium 40 mg 1 by mouth every day, Pravastatin Sodium 40 mg 1 by mouth every day, Metoprolol Succinate ER 50 mg 1 by mouth every day, Aspirin 325 mg 1 by mouth twice a day, Lasix 40 mg 1po bid, Oxybutynin Chloride ER 10 mg 1 by mouth every day, Cholestyramine 4 gm [id number], Centrum Silver 50+Women 50+Women 1 tablet by mouth per day, Vitamin D (Ergocalciferol) 28753 Unit one tablet every PRE-OP EXAM:? General appearance:NORMAL? ? ? Other: Eyes: Conjunctivae and lids: NORMAL? Pupils: ERR Ears, Nose, Mouth, and Throat: NORMAL? Other: Inspection of lips, teeth and gums: NORMAL? ?Other: Neck: Examination of neck: no masses noted. Respiratory: Assessment of respiratory effort: NORMAL? ?Other: ?Auscultation of lungs: clear to auscultation no wheezes, rhonchi or rales. Cardiovascular:? Auscultation of heart: regular rate and rhythm, no murmurs, gallops or rubs. Exam of carotid arteries: NORMAL? ?Other: Gastrointestinal:? Exam of abdomen: soft, nontender, nondistended bowel sounds present. Lymphatic:? Palpation of nodes in neck:? NORMAL? ? ?Other: ? Palpation of nodes in Axillae: NORMAL? ?Other: Neurological: see below Psychiatric:? Orientation to time, place and person: NORMAL? ? ?Other: ?Mood and affect: NORMAL? ?Other: PHYSICAL EXAMINATION: Exam: Const: Morbidly obese? No signs of apparent distress present.? Alert and oriented x 3.? Musculo: Antalgic gait, patient ambulates with a cane? Knees: ?Insp/Palp: Right knee: small open sore over the anterior lower leg. 20 degree flexion contracture, flexion 100 degrees.?? Skin: Skin is warm, dry and intact. there is a small 5 mm in circumference open area on the distal one third of the right leg.? No underlying fluctuance.? Minimal surrounding erythema.? Neuro: Sensation to light touch is intact in the lower extremities deep peroneal, lower extremities dorsal cutaneous, lower extremities saphenous, lower extremities sural and lower extremities tibial nerve distribution. IMAGING STUDIES: right knee patient does varus alignment and medial joint space narrowing, subchondral sclerosis and osteophyte formation consistent with severe stage IV osteoarthritis with medial compartment bony erosions. IMPRESSION: 1. GRADE IV OSTEOARTHRITIS RIGHT KNEE? 2. Arthritis 3. High Blood Pressure 4. Hypercholesterolemia 5. Thyroid Disease PLAN: Patient denies history of? DVT/PE, open wounds or sores over the body, no allergies to antibiotics and no current antibiotic use. No current dental issues will resume aspirin 325 mg daily for DVT prophylaxis postoperatively At this time patient has consented to proceed with a robotic-assisted right total knee arthroplasty.? Dr. Alicea did discuss and review with the patient all treatment options including surgical versus nonsurgical options.? Patient does wish to proceed with the above-stated procedure.? Potential risk, benefits, and complications of the procedure were discussed in detail including but not limited to , infection, nerve and blood vessel damage, persistent pain, numbness, tingling, paresthesias, blood clot, pulmonary embolism, and requirement for possible further surgery.? The patient expressed full understanding and has no further questions for the doctor.? Patient does agree to proceed with the above-stated procedure and has signed the surgery consent form. I have reviewed the [place] Automated Rx Reporting System (OARRS) report for this patient for refill pattern and other prescriber involvement as part of the appropriate surveillance for the provision of acute and chronic controlled medications.? The report was requested and reviewed on the date of this entry and was considered in the prescribing process. Discussed with the patient the risks associated with the COVID-19 virus including the risk of exposure while at the hospital.? The patient was reassured local hospitals have low infection rates and taken all necessary precautions to limit patient exposure to COVID-19.? Limiting the patient's time in the hospital may decrease their exposure to COVID-19.? The patient was notified that we will need to comply with any screening or testing the hospital wishes to perform and that surgery may be delayed for any positive test results.
--- NOTE | 2023-04-08 10:19 | EKG12_ITS ---
Test Reason : PREOP Blood Pressure : / mmHG Vent. Rate : 081 BPM Atrial Rate : 081 BPM P-R Int : 166 ms QRS Dur : 076 ms QT Int : 388 ms P-R-T Axes : 062 006 057 degrees QTc Int : 450 ms Normal sinus rhythm Normal ECG Confirmed by RODERICK DARDEN, REBECCA ([id number]), science editor KIRSTY HAYWOOD ([id number]) on 04/09/2023 8:19:37 AM Referred By: Chaparro Alicea Confirmed By:REBECCA VAUGHN MD
[2023-04-08 10:56] LABS: Absolute Lymphocyte Count 1.51 X10^3/uL (0.83-4.51); Absolute Neutrophil Count 4.6 X10^3/uL (2.0-7.7); Basophil# 0.08 X10^3/uL; Basophil% 1.2 % (0-1); Eosinophil# 0.12 X10^3/uL; Eosinophils% 1.8 % (0-5); Hematocrit 40.1 % (37-47); Hemoglobin 13.6 g/dL (12.0-15.0); Lymphocyte # 1.51 X10^3/ul (0.83-4.51); Lymphocyte % 22.4 % (19-41); Mean Corp Hgb Conc 33.9 g/dL (32-36); Mean Corpuscular Volume 103.1 fL (81-99); Mean Platelet Vol. 10.7 fl (6.2-12.0); Monocyte# 0.42 X10^3/uL; Monocyte% 6.2 % (0-10); NRBC Flagged by Analyzer 0 % (0-5); Neutrophil # 4.59 X10^3/uL (2.7-7.7); Neutrophil % 68.3 % (47-70); Platelet Count 301 K/mm3 (150-450); RBC Distribution Width CV 12.8 % (11.6-14.6); RBC Distribution Width SD 48.9 fl (35.1-43.9); Red Blood Count 3.89 M/mm3 (4.2-5.4); White Blood Count 6.7 K/mm3 (4.4-11.0)
[2023-04-08 11:20] LABS: Hemoglobin A1c 5.9 % (3.8-5.6)
[2023-04-08 11:27] LABS: Albumin, Serum 3.5 g/dL (3.2-5.0); Anion Gap 5 (5-15); BUN 29 mg/dL (7-18); BUN/Creat Ratio 25.9 RATIO (10-20); Calcium,Total 9.6 mg/dL (8.5-10.1); Chloride 104 mmol/L (98-107); Creatinine, Serum 1.12 mg/dL (0.55-1.02); EST Glomerular Filtration Rate 50 mL/min (>60); Est Glom Filt Rate - Afr Amer 60 mL/min (>60); Glucose 117 mg/dL (74-106); Potassium 4.5 mmol/L (3.5-5.1); Sodium Level 137 mmol/L (136-145)
[2023-04-08 11:38] LABS: Magnesium 1.8 mg/dL (1.6-2.6); Thyroid Stim Hormone (TSH) 2.54 uIU/mL (0.358-3.74)
--- NOTE | 2023-06-07 10:36 | NURSING ---
AT TIME OF PAT PHONE CALL, PT STATES SHE IS AT [facility] AND THAT SHE MAY NOT BE HAVING SURGERY WITH DR KERR. STATES SHE LEFT MESSAGE AT DR KERR'S OFFICE ON 06/04/23 AND IS WAITING TO HEAR BACK FROM THEM. PT INSTRUCTED THAT PAT INTERVIEW TO BE AFTER FINALIZED SURGERY DATE.
== END | disposition home or self-care (01) ==
LOC: PAT 06-15 09:38
PROVIDERS: Anesthesiology; PCP Nurse Practitioner Family; Referring Provider Specialist; Visit Provider Specialist
DX: M25.561 Pain in right knee (principal); I73.9 Peripheral vascular disease, unspecified; E66.01 Morbid (severe) obesity due to excess calories; Z96.652 Presence of left artificial knee joint; M79.89 Other specified soft tissue disorders; F41.9 Anxiety disorder, unspecified; F32.A Depression, unspecified; I10 Essential (primary) hypertension; E78.00 Pure hypercholesterolemia, unspecified; E07.9 Disorder of thyroid, unspecified; Z79.890 Hormone replacement therapy; Z79.899 Other long term (current) drug therapy
CPT/HCPCS: 36415; 80048; 82040; 83036; 83735; 84443; 85025; 87081; 93005

== ENCOUNTER 2023-06-24 13:00 | Outpatient (RCR) | payer MEDICARE, SELFPAY ==
[2023-06-04 13:07] VITALS: BP 149/62; PULSE 79; RESP 16; TEMP 36.2
--- NOTE | 2023-06-04 13:27 | HP.PCM_ITS ---
History of Present Illness Date of Service: 06/04/23 Chief Complaint: RLE wound History of Wound: Patient presents today for worsened edema. She is well known to me, I saw her last time she was at [facility]. At that time, primary issue was edema. She was discharged on 03/19/23 with prescription for compression stockings, direction to wear circaids daily, lymphedema pump ordered, and referral to dermatology for evaluation/possible biopsy of small red lesion on RLE. She never obtained compression stockings as they were too expensive. She did not wear the circaids as directed. By time she received the lymphedema pump, her edema had increased to the point where it did not fit. She was supposed to have R TKR in March but this got pushed, now scheduled for early June. She is worried that due to significant edema she will have to push it further back. Patient's past medical history is significant for CAD s/p stent and lymphedema. She does not think she has CHF and no records on file to suggest this diagnosis. She is prescribed torsemide but does not take it as directed because she does not like getting up at night to use the restroom. She denies history of VTE, past venous or arterial interventions. [facility] Medical History (Updated 04/07/23 @ 09:35 by Fidelia Young) Anxiety Arthritis Cardiology follow-up encounter GERD (gastroesophageal reflux disease) Gout Hepatitis High cholesterol History of edema History of hiatal hernia Non-smoker Osteoarthritis Post-menopausal Restless legs Thyroid disease Wears glasses Home Medications Levothyroxine Sodium 100 mcg PO DAILY 07/23/15 [History Last Taken Unknown] lisinopril 10 mg tablet 10 mg PO DAILY 07/23/15 [History Last Taken 07/25/15 10:45] metoprolol succinate 50 mg tablet,extended release 24 hr 50 mg PO QHS 07/23/15 [History Last Taken Unknown] multivitamin (Daily Multiple tablet) 1 ea PO DAILY 07/23/15 [History Last Taken Unknown] oxybutynin chloride 10 mg tablet,extended release 24 hr (Ditropan XL) 10 mg PO DAILY 07/23/15 [History Last Taken Unknown] pantoprazole 40 mg tablet,delayed release 40 mg PO DAILY 07/23/15 [History Last Taken Unknown] pravastatin 80 mg tablet 40 mg PO QHS 07/23/15 [History Last Taken Unknown] triamcinolone acetonide 0.1 % topical ointment 1 applic topical BID #30 grams 03/03/22 [Rx Last Taken Unknown] torsemide 10 mg tablet 40 mg PO DAILY 01/29/23 [History Last Taken Unknown] tramadol 50 mg tablet 50 mg PO BID PRN Pain 01/29/23 [History Last Taken Unknown] ergocalciferol (vitamin D2) 1,250 mcg (50,000 unit) capsule 50,000 unit PO QWEEK 04/07/23 [History Last Taken Unknown] Allergy/AdvReac Type Severity Reaction Status Date / Time indomethacin [From Indocin] Allergy Unknown Verified 04/07/23 09:12 indomethacin sodium Allergy Unknown Verified 04/07/23 09:12 [From Indocin] Penicillins Allergy Rash Verified 04/07/23 09:12 Sulfa (Sulfonamide Allergy Rash Verified 04/07/23 09:12 Antibiotics) codeine AdvReac Other Verified 04/07/23 09:12 simvastatin AdvReac Pain in Verified 04/07/23 09:12 joints Family History (Updated 03/03/22 @ 11:58 by Bernice Hanson) Father Heart disease Kidney disease Mother Anorexia Surgical History (Updated 04/07/23 @ 09:35 by Fidelia Young) History of appendectomy History of cardiac catheterization (~2008) History of tonsillectomy and adenoidectomy History of tubal ligation Hx of cholecystectomy Stented coronary artery (~2008) Total knee replacement status Social History (Updated 03/03/22 @ 11:58 by Bernice Hanson) Smoking Status: Never smoker alcohol intake: current alcohol intake frequency: holidays/special occasions only Vital Signs Vital Signs Vital Signs: 06/04/23 13:07 Temperature 97.1 F L Temperature Source Temporal Pulse Rate 79 Respiratory Rate 16 Blood Pressure 149/62 H Blood Pressure Mean 91 Blood Pressure Source Monitor Blood Pressure Position Semi-Fowlers Blood Pressure Location Left Arm Physical Exam Const alert, oriented x3 and no apparent distress General Appearance: cooperative and comfortable HEENT normocephalic, hearing grossly normal bilaterally, external ears normal and external nose normal Head and Scalp: normal to inspection Eyes EOMs intact bilaterally General Eye: normal appearance of both eyes Neck full ROM General: normal visual inspection and trachea midline Resp normal respiratory effort, normal air movement, no retractions and no use of accessory muscles Effort and Inspection: able to speak in complete sentences Cardio regular rate and regular rhythm Heart Sounds: murmur Peripheral Pulses: brachial pulses present and radial pulses present Extremity Extremity Narrative: Bilateral lower extremities with significant edema. Varicose/reticular veins noted bilaterally. Normal capillary refill, appropriate warmth. Neuro oriented x3, CN's II-XII intact bilaterally, moves all extremities, no focal motor deficits and no sensory deficits noted Psych cooperative, affect normal, speech normal and activity/motor behavior normal Debridement Note Debridement Note No debridement was completed: No debridement was completed today Post-Debridement Measurements and Additional Note: Post-Debridement Measurements/Treatment - Nurse 1 - General Ulcer Assessment Start: 06/04/23 13:07 Freq: Status: Active Protocol: CHELY Activity Type Activity Date Activity User E-sign Co-sign Detail Recorded Client Recorded Date Recorded By Document 06/04/23 13:07 FELICIANO [id number] 06/04/23 13:11 06/04/23 13:07 WC - Today's Visit Information Type of service Initial Visit Arrival Mode Ambulatory, Walker Patient Identification Verified (Name & Yes ) Patient Requires Transmission-Based No Precautions Vital Signs Temperature (97.8 F-99.1 F) 97.1 F L Temperature Source Temporal Pulse Rate (60-100) 79 Pulse Location Monitor Respiratory Rate (12-18) 16 Respiratory rate source Observation Blood Pressure (90/60-120/80) 149/62 H Blood Pressure Mean 91 Source Monitor Position Semi-Fowlers Blood Pressure Location Left Arm History Since Last Visit- (Skip if this is Patient's initial visit) Left Footwear Regular Shoe Right Footwear Regular Shoe Pain Scale: 0-10 Numeric Is Patient Pain Free? Yes - Nurse 1 - General Ulcer Measurement Start: 06/04/23 13:07 Freq: Status: Active Protocol: Activity Type Activity Date Activity User E-sign Co-sign Detail Recorded Client Recorded Date Recorded By Document 06/04/23 13:07 FELICIANO [id number] 06/04/23 13:11 06/04/23 13:07 Wound Center Nurse 1 Lower Limb Edema Present Yes Right Calf (cm) 56.3 Right Ankle (cm) 32.7 Left Calf (cm) 56.2 Left Ankle (cm) 33.5 Charges/Coding Visit Charges Office Visits / Consults: [id number] OV L3 Est Assessment/Plan Assessment/Plan (1) Bilateral lower extremity edema: CODE(S): R60.0 - Localized edema (2) Venous insufficiency (chronic) (peripheral): CODE(S): I87.2 - Venous insufficiency (chronic) (peripheral) (3) Lymphedema: CODE(S): I89.0 - Lymphedema, not elsewhere classified PLAN: Plan Will re-initiate 3M wraps to reduce edema. Goal will be to reduce edema to point that her CircAids and lymphedema pump can be applied. I stressed the importance of consistent compression in the long-term management of chronic lower extremity edema/lymphedema. Patient will return weekly to have 3M wraps changed. She will return to see me in 4 weeks.
[2023-06-10 13:43] VITALS: BP 177/67; PULSE 72; RESP 20; TEMP 36.5
[2023-06-17 14:02] VITALS: RESP 22; TEMP 36.7
[2023-06-24 13:03] VITALS: BP 129/50; PULSE 71; RESP 16; TEMP 36.1
== END 2023-06-28 23:59 | disposition home or self-care (01) ==
LOC: WC 13:00
PROVIDERS: PCP Nurse Practitioner Family; Referring Provider Nurse Practitioner Family; Visit Provider Physician Assistant
DX: R60.0 Localized edema (principal); I25.10 Atherosclerotic heart disease of native coronary artery without angina pectoris; I89.0 Lymphedema, not elsewhere classified; I87.2 Venous insufficiency (chronic) (peripheral); E78.00 Pure hypercholesterolemia, unspecified; E07.9 Disorder of thyroid, unspecified; Z01.812 Encounter for preprocedural laboratory examination; Z95.5 Presence of coronary angioplasty implant and graft; Z79.899 Other long term (current) drug therapy; K21.9 Gastro-esophageal reflux disease without esophagitis; Z79.890 Hormone replacement therapy
CPT/HCPCS: 29581; 99213; G0463

== ENCOUNTER 2023-07-22 13:00 | Outpatient (RCR) | payer MEDICARE, SELFPAY ==
[2023-06-29 00:23] VITALS: BP 129/50; PULSE 71; RESP 16; TEMP 36.1
[2023-07-02 13:10] VITALS: BP 148/70; PULSE 85; RESP 16; TEMP 36.1
--- NOTE | 2023-07-02 14:18 | PCM.WC.PN ---
History of Present Illness Date of Service: 07/02/23 Chief Complaint: RLE wound History of Wound: Patient presents today for worsened edema. She is well known to me, I saw her last time she was at [facility]. At that time, primary issue was edema. She was discharged on 03/19/23 with prescription for compression stockings, direction to wear circaids daily, lymphedema pump ordered, and referral to dermatology for evaluation/possible biopsy of small red lesion on RLE. She never obtained compression stockings as they were too expensive. She did not wear the circaids as directed. By time she received the lymphedema pump, her edema had increased to the point where it did not fit. She was supposed to have R TKR in March but this got pushed, now scheduled for early June. She is worried that due to significant edema she will have to push it further back. Patient's past medical history is significant for CAD s/p stent and lymphedema. She does not think she has CHF and no records on file to suggest this diagnosis. She is prescribed torsemide but does not take it as directed because she does not like getting up at night to use the restroom. She denies history of VTE, past venous or arterial interventions. Subjective Subjective Patient has been following up as directed for 3M wrap applications. Her bilateral lower legs are back down to the measurements they were when we last discharged her from [facility] and had her measured for lymphedema pumps. She has not yet used her circaids again. She has not tried to use the lymphedema pumps again, she states she doesn't know how. She has no wounds. Objective Data Objective Data Vital Signs: Vital Signs Temp Pulse Resp BP 97.0 F L 85 16 148/70 H 07/02/23 13:10 07/02/23 13:10 07/02/23 13:10 07/02/23 13:10 Charges/Coding Visit Charges Office Visits / Consults: [id number] OV L3 Est Physical Exam Const alert, oriented x3 and no apparent distress General Appearance: cooperative and comfortable HEENT normocephalic, hearing grossly normal bilaterally, external ears normal and external nose normal Head and Scalp: normal to inspection Eyes EOMs intact bilaterally General Eye: normal appearance of both eyes Neck full ROM General: normal visual inspection and trachea midline Resp normal respiratory effort, normal air movement, no retractions and no use of accessory muscles Effort and Inspection: able to speak in complete sentences Cardio regular rate and regular rhythm Heart Sounds: murmur Peripheral Pulses: brachial pulses present and radial pulses present Extremity Extremity Narrative: Bilateral lower extremities with significant edema. Varicose/reticular veins noted bilaterally. Normal capillary refill, appropriate warmth. Neuro oriented x3, CN's II-XII intact bilaterally, moves all extremities, no focal motor deficits and no sensory deficits noted Psych cooperative, affect normal, speech normal and activity/motor behavior normal Debridement Note Debridement Note No debridement was completed: No debridement was completed today Post-Debridement Measurements and Additional Note: Post-Debridement Measurements/Treatment WC - Nurse 1 - General Ulcer Assessment Start: 07/02/23 13:10 Freq: Status: Active Protocol: CHELY Activity Type Activity Date Activity User E-sign Co-sign Detail Recorded Client Recorded Date Recorded By Document 07/02/23 13:10 FELICIANO [id number] 07/02/23 13:12 FELICIANO 07/02/23 13:10 - Today's Visit Information Type of service Follow-up Visit (Physician/INSPECTOR OF WEIGHTS AND MEASURES ) Arrival Mode Ambulatory, Walker Patient Identification Verified (Name & Yes ) Patient Requires Transmission-Based No Precautions Vital Signs Temperature (97.8 F-99.1 F) 97.0 F L Temperature Source Temporal Pulse Rate (60-100) 85 Pulse Location Monitor Respiratory Rate (12-18) 16 Respiratory rate source Observation Blood Pressure (90/60-120/80) 148/70 H Blood Pressure Mean (mm Hg) 96 Source Monitor Position Supine Blood Pressure Location Right Arm History Since Last Visit- (Skip if this is Patient's initial visit) Have you changed medications since your No last visit? Any new allergies or adverse reactions No Had a fall/change in ADL's that may No increase risk of falls Signs or symptoms of abuse and/or No neglect since last visit Have you been in the hospital since your No last visit? Has dressing in place as prescribed Yes Has compression in place as prescribed Yes Has offloadiing in place as prescribed N/A Experienced any changes in pain level or No management Left Footwear Regular Shoe Right Footwear Regular Shoe Pain Scale: 0-10 Numeric Is Patient Pain Free? Yes - Nurse 1 - General Ulcer Measurement Start: 07/02/23 13:10 Freq: Status: Active Protocol: Activity Type Activity Date Activity User E-sign Co-sign Detail Recorded Client Recorded Date Recorded By Document 07/02/23 13:10 [id number] 07/02/23 13:12 JF 07/02/23 13:10 Wound Center Nurse 1 Lower Limb Edema Present Yes Right Calf (cm) 49 Right Ankle (cm) 31.0 Left Calf (cm) 49.5 Left Ankle (cm) 31.1 WC - Nurse 3 - General Ulcer D/C NN Start: 07/02/23 13:10 Freq: Status: Active Protocol: Activity Type Activity Date Activity User E-sign Co-sign Detail Recorded Client Recorded Date Recorded By Document 07/02/23 13:43 [id number] 07/02/23 13:44 RB 07/02/23 13:43 Wound Care Center Nurse 3 Right -Tubular Bandage Double Layer -Size of Tubigrip Used Size E -Size E ($) 2 Left -Tubular Bandage Double Layer -Size of Tubigrip Used Size E -Size E ($) 2 Pain Scale: 0-10 Numeric Is Patient Pain Free? Yes WC - Visit Discharge Discharge Condition Stable Ambulatory Status Ambulatory Transportation Private Auto Medication Reconcilliation completed & No provided to patient/care provider Clinical Summary of Care Provided Yes Assessment/Plan Assessment/Plan (1) Bilateral lower extremity edema: CODE(S): R60.0 - Localized edema (2) Venous insufficiency (chronic) (peripheral): CODE(S): I87.2 - Venous insufficiency (chronic) (peripheral) (3) Lymphedema: CODE(S): I89.0 - Lymphedema, not elsewhere classified PLAN: Plan As legs are back to amount of edema that her lymphedema pumps and circaids were measured for I have directed her to begin using these again. However, she forgets how to use these. Will have her come in for a nurse visit next week for instruction regarding circaids. Will reach out to lymphedema pump supplier and see if they can return to her home for re-teaching. In the meantime, will have her where double-layer high strength tubigrips for compression. She is instructed to elevate her legs as often as possible throughout the day. She is instructed in the importance of consistency with her compression.
[2023-07-06 13:10] VITALS: BP 122/49; RESP 22; TEMP 36.3
--- NOTE | 2023-07-22 12:22 | PN.PCM_ITS ---
History of Present Illness Date of Service: 07/22/23 Chief Complaint: RLE wound History of Wound: Patient presents today for worsened edema. She is well known to me, I saw her last time she was at [facility]. At that time, primary issue was edema. She was discharged on 03/19/23 with prescription for compression stockings, direction to wear circaids daily, lymphedema pump ordered, and referral to dermatology for evaluation/possible biopsy of small red lesion on RLE. She never obtained compression stockings as they were too expensive. She did not wear the circaids as directed. By time she received the lymphedema pump, her edema had increased to the point where it did not fit. She was supposed to have R TKR in March but this got pushed, now scheduled for early June. She is worried that due to significant edema she will have to push it further back. Patient's past medical history is significant for CAD s/p stent and lymphedema. She does not think she has CHF and no records on file to suggest this diagnosis. She is prescribed torsemide but does not take it as directed because she does not like getting up at night to use the restroom. She denies history of VTE, past venous or arterial interventions. Subjective Subjective She had been wearing tubigrip and circaids for compression. She has not yet obtained measured compression stockings. She has not heard from the lymphedema pump rep to have them show her how to use them. Her R TKR has been delayed to October due to her lower extremity swelling. She has been referred for PT/water aerobic therapy by ortho to help with this. Objective Data Objective Data Vital Signs: Vital Signs Temp Pulse Resp BP 97.4 F L 85 22 H 122/49 H 07/06/23 13:10 07/02/23 13:10 07/06/23 13:10 07/06/23 13:10 Charges/Coding Visit Charges Office Visits / Consults: [id number] OV L2 Est Physical Exam Const alert, oriented x3 and no apparent distress General Appearance: cooperative and comfortable HEENT normocephalic, hearing grossly normal bilaterally, external ears normal and external nose normal Head and Scalp: normal to inspection Eyes EOMs intact bilaterally General Eye: normal appearance of both eyes Neck full ROM General: normal visual inspection and trachea midline Resp normal respiratory effort, normal air movement, no retractions and no use of accessory muscles Effort and Inspection: able to speak in complete sentences Cardio regular rate and regular rhythm Heart Sounds: murmur Peripheral Pulses: brachial pulses present and radial pulses present Extremity Extremity Narrative: Bilateral lower extremities with significant edema. Varicose/reticular veins noted bilaterally. Normal capillary refill, appropriate warmth. Neuro oriented x3, CN's II-XII intact bilaterally, moves all extremities, no focal motor deficits and no sensory deficits noted Psych cooperative, affect normal, speech normal and activity/motor behavior normal Debridement Note Debridement Note No debridement was completed: No debridement was completed today Post-Debridement Measurements and Additional Note: Post-Debridement Measurements/Treatment - Nurse 1 - General Ulcer Assessment Start: 07/02/23 13:10 Freq: Status: Active Protocol: CHELY Activity Type Activity Date Activity User E-sign Co-sign Detail Recorded Client Recorded Date Recorded By Document 07/02/23 13:10 [id number] 07/02/23 13:12 JF Document 07/06/23 13:10 DL [id number] 07/06/23 13:22 DL 07/02/23 07/06/23 13:10 13:10 - Today's Visit Information Type of service Follow-up Visit Nurse-only (Physician/MANAGEMENT LEAD Visit ) Arrival Mode Ambulatory, Ambulatory, Walker Walker Transfer Assistance None Patient Identification Verified (Name & Yes Yes ) Patient Requires Transmission-Based No No Precautions Vital Signs Temperature (97.8 F-99.1 F) 97.0 F L 97.4 F L Temperature Source Temporal Temporal Pulse Rate (60-100) 85 Pulse Location Monitor Respiratory Rate (12-18) 16 22 H Respiratory rate source Observation Observation Blood Pressure (90/60-120/80) 148/70 H 122/49 H Blood Pressure Mean (mm Hg) 96 73 Source Monitor Monitor Position Supine Blood Pressure Location Right Arm History Since Last Visit- (Skip if this is Patient's initial visit) Have you changed medications since your No No last visit? Any new allergies or adverse reactions No No Had a fall/change in ADL's that may No No increase risk of falls Signs or symptoms of abuse and/or No No neglect since last visit Have you been in the hospital since your No No last visit? Has dressing in place as prescribed Yes No Has compression in place as prescribed Yes Yes Has offloadiing in place as prescribed N/A N/A Experienced any changes in pain level or No No management Left Footwear Regular Shoe Right Footwear Regular Shoe Pain Scale: 0-10 Numeric Is Patient Pain Free? Yes Yes - Nurse 1 - General Ulcer Measurement Start: 07/02/23 13:10 Freq: Status: Active Protocol: Activity Type Activity Date Activity User E-sign Co-sign Detail Recorded Client Recorded Date Recorded By Document 07/02/23 13:10 JF [id number] 07/02/23 13:12 JF Document 07/06/23 13:10 DL [id number] 07/06/23 13:22 DL 07/02/23 07/06/23 13:10 13:10 Wound Center Nurse 1 Lower Limb Edema Present Yes Right Calf (cm) 49 30.6 Right Ankle (cm) 31.0 33.5 Left Calf (cm) 49.5 50.3 Left Ankle (cm) 31.1 32.5 - Nurse 3 - General Ulcer D/C NN Start: 07/02/23 13:10 Freq: Status: Active Protocol: Activity Type Activity Date Activity User E-sign Co-sign Detail Recorded Client Recorded Date Recorded By Document 07/02/23 13:43 RB [id number] 07/02/23 13:44 RB Document 07/06/23 13:10 DL [id number] 07/06/23 13:22 DL 07/02/23 07/06/23 13:43 13:10 Wound Care Center Nurse 3 claire -Other circ Aid Right -Tubular Bandage Double Layer -Size of Tubigrip Used Size E -Size E ($) 2 Left -Tubular Bandage Double Layer -Size of Tubigrip Used Size E -Size E ($) 2 Treatment Response Procedure Tolerated Well Vital Signs Temperature (97.8 F-99.1 F) 97.4 F L Temperature Source Temporal Respiratory Rate (12-18) 22 H Respiratory rate source Observation Blood Pressure (90/60-120/80) 122/49 H Blood Pressure Mean (mm Hg) 73 Source Monitor Pain Scale: 0-10 Numeric Is Patient Pain Free? Yes Yes WC - Visit Discharge Discharge Condition Stable Stable Ambulatory Status Ambulatory Ambulatory Transportation Private Auto Private Auto Medication Reconcilliation completed & No provided to patient/care provider Clinical Summary of Care Provided Yes Notes: Pt brought in her Circ Aids/ Juzo compression. Instructed on application of compression. Has F/U in 3 weeks for recheck. Assessment/Plan Assessment/Plan (1) Bilateral lower extremity edema: CODE(S): R60.0 - Localized edema (2) Venous insufficiency (chronic) (peripheral): CODE(S): I87.2 - Venous insufficiency (chronic) (peripheral) (3) Lymphedema: CODE(S): I89.0 - Lymphedema, not elsewhere classified PLAN: Plan Her lower extremity edema seems to be overall stable, I do think her swelling is primarily due to lymphedema and that we have made as much progress as possible without use of lymphedema pumps. I do strongly advise her to obtain the measured compression stockings, for now will provide with additional tubigrips to last until she can obtain these. Also strongly advise continued consistent use of the circaids. RN-CM will reach out to lymphedema pump human resources hr representative and try to coordinate a home visit so they can instruct patient in proper use of the lymphedema pumps and/or supply new ones as needed. I discussed with patient that I think consistent use of these pumps will be very important in management of her edema.
[2023-07-22 13:39] VITALS: BP 134/33; PULSE 66; RESP 16; TEMP 35.5
== END 2023-07-26 08:12 | disposition home or self-care (01) ==
LOC: WC 13:00
PROVIDERS: PCP Nurse Practitioner Family; Referring Provider Nurse Practitioner Family; Visit Provider Physician Assistant
DX: I87.2 Venous insufficiency (chronic) (peripheral) (principal); I25.10 Atherosclerotic heart disease of native coronary artery without angina pectoris; Z96.651 Presence of right artificial knee joint; R60.0 Localized edema; I89.0 Lymphedema, not elsewhere classified; Z95.5 Presence of coronary angioplasty implant and graft
CPT/HCPCS: 99211; 99213; G0463

== ENCOUNTER → 2023-08-14 | Outpatient (CLI) | payer MEDICARE, SELFPAY ==
--- NOTE | 2023-08-14 11:15 | US_ITS ---
STUDY: RENAL ULTRASOUND - COMPLETE REASON FOR EXAM: Female, 77 years old. INCONTINENCE TECHNIQUE: Ultrasound evaluation of the kidneys was performed with real-time and static fox-scale imaging. COMPARISON: None. FINDINGS: RIGHT KIDNEY: Normal location of the right kidney, which is normal in size. The right kidney measures 10.4 cm. There is a normal cortex of the right kidney. The renal cortex measures 2.0 cm. There is no right renal mass or cyst. There are no right renal calculi. There is no right hydronephrosis. DISTAL RIGHT URETER: There is non-visualization of the distal right ureter. There is no demonstrated right ureterovesical junction calculus. There is a visualized right ureteral jet. LEFT KIDNEY: Normal location of the left kidney, which is normal in size. The left kidney measures 10.3 cm. There is a normal cortex of the left kidney. The renal cortex measures 1.3 cm. There is no left renal mass or cyst. There are no left renal calculi. There is no left hydronephrosis. DISTAL LEFT URETER: There is non-visualization of the distal left ureter. There is no demonstrated left ureterovesical junction calculus. There is a visualized left ureteral jet. BLADDER: The distended urinary bladder has a volume of 65 ml. The empty urinary bladder has a volume of ml. There is a normal wall thickness of the distended urinary bladder. There is no demonstrated mass within the urinary bladder. There are no demonstrated bladder calculi. US/Kidney and Bladder IMPRESSION: Normal ultrasound of the kidneys and urinary bladder. Electronically Signed: Russ Huynh MD at 20:29 EDT ,
== END | disposition home or self-care (01) ==
LOC: US 11:15
PROVIDERS: PCP Nurse Practitioner Family; Referring Provider Urology; Visit Provider Urology
DX: R32 Unspecified urinary incontinence (principal)
CPT/HCPCS: 76770

== ENCOUNTER → 2024-01-04 | Outpatient (CLI) | payer MEDICARE, SELFPAY ==
--- NOTE | 2024-01-04 08:21 | CT_ITS ---
STUDY: CT ABDOMEN AND PELVIS WITHOUT CONTRAST REASON FOR EXAM: Female, 78 years old. Right flank pain. RADIATION DOSAGE (If Supplied By Facility): CTDIvol = ( 21.68 ) mGy, DLP = ( 1088.66 ) mGycm TECHNIQUE: Transaxial images were obtained from the dome of the diaphragm to the symphysis pubis without oral contrast, and without intravenous contrast. Sagittal and coronal images were reconstructed. Individualized dose optimization techniques were used for this CT. COMPARISON: None. FINDINGS: The visualized lung bases are unremarkable. Coronary artery calcification. Normal liver. There are surgical clips in the gallbladder fossa consistent with a prior cholecystectomy. Normal spleen. Normal pancreas. There is a small, circumscribed, smooth, low attenuation left adrenal mass, consistent with an adrenal adenoma. This measures 2.1 cm x 2.2 cm. Normal right adrenal gland. Normal right kidney. Normal left kidney. There is a small hiatal hernia. Normal small intestine. There are multiple colonic diverticula consistent with diverticulosis. The patient is status post appendectomy. There is diffuse atherosclerotic calcification of the abdominal aorta and its major visceral branches, without a demonstrated aneurysm. Normal inferior vena cava. Normal retroperitoneum. Normal urinary bladder. Normal abdominal wall. There are diffuse degenerative changes of the visualized lumbar spine. CT/Abdomen/Pelvis without Cont IMPRESSION: 2.1 cm x 2.2 cm left adrenal adenoma. Scattered sigmoid diverticula. The patient is status post appendectomy and cholecystectomy. Coronary artery calcification. Electronically Signed: Ernie Meeks MD at 10:11 EST ,
--- OUTSIDE RECORDS SUMMARY | 2024-01-04 08:34 | XMS RPT_ITS | CCD ---
Author Name Unknown Address [address] [place] [address] Organization [facility] Care Team Providers Care Core Winder Name Role Phone Alexi Brandt Unavailable Unavailable BrandyRuss Unavailable Unavail able BRANDY SAFETY ASSISTANT - STAFFING MANAGER, RUSS Batista [facility] SAFETY ASSISTANT-STAFFING MANAGERWILLIAM Attending Unavailab le BRANDY SAFETY ASSISTANT - STAFFING MANAGER, RUSS Batista Primary Care [facility] navailable BRANDY SAFETY ASSISTANT - STAFFING MANAGER, RUSS Batista Attending U navailable BRANDY SAFETY ASSISTANT - STAFFING MANAGER, RUSS Batista Primary Care U navailable BRANDY SAFETY ASSISTANT - STAFFING MANAGER, RUSS Batista Attending U navailable BRANDY SAFETY ASSISTANT - STAFFING MANAGER, URSS Batista Primary Care U navailable BRANDY SAFETY ASSISTANT - STAFFING MANAGER, RUSS Batista Attending U navailable BRANDY SAFETY ASSISTANT - STAFFING MANAGER, RUSS Batista Primary Care U navailable JEISON GARCÍA PA-C Attending Unavailable BRANDY SAFETY ASSISTANT - STAFFING MANAGER, RUSS Batista Primary Care U navailable CIRILO DARDEN, DR BEN Hale Attending Unavailab le BRANDY SAFETY ASSISTANT - STAFFING MANAGER, RUSS Batista Primary Care U navailable Allergies Allergy Classification Reported Allergen(s) Allergy Type Date of Onset Reaction(s) Facility (13 sources) Codeine; Translations: [codeine] Drug Allergy MAKE ME CRAZY [facility] (13 sources) Indomethacin; Translations: [indomethacin] Drug Allergy NAUSEA [facility] (13 sources) Penicillin; Translations: [penicillins] Drug Allergy HIVES [facility] (13 sources) Sulfamethoxazole ; Translations: [sulfamethoxazol e] Drug Allergy [facility] Medications Current Medications Medication Drug Class(es) Dates Sig (Normalized) Sig (Original) Albuterol (9 sources) beta2-Adrenergic Agonist Start: 02-09-2020 take 1 puff(s) by inhalation every four hours as needed for wheezing Ventolin HFA MDI (90 mcg/inh) inhalation aerosol 1 puff(s), Inhalation, q4h, PRN as needed for wheezing, # 3 EA, 0 Refill(s), Pharmacy: [facility], 161, cm, 02/09/20 10:32:00 EDT, Height, kg, 02/09/20 10:32:00 EDT, Dosing Weight Start Date: 02/09/20 Status: Ordered aspirin 325 mg delayed release oral tablet (13 sources) Platelet Aggregation Inhibitor, Nonsteroidal Anti-inflammatory Drug Start: 04-07-2023 aspirin 325 mg oral delayed release tablet Dose : 325 mg = 1 tab(s), Oral, qDay, 0 Refill(s) Start Date: 04/07/23 Status: Ordered Problems Active Problems Problem Classification Problem Date Documented Da te Episodic/Chronic Chronic kidney disease (13 sources) Chronic kidney disease stage 3 01-15-2021 Chronic Chronic kidney disease (2 sources) Chronic kidney disease; Translations: [Chronic kidney disease, stage 3 unspecified] Onset: 3 Congestive heart failure; nonhypertensive (12 sources) Right ventricular failure 10-06-2021 Chronic Coronary atherosclerosis and other heart disease (13 sources) Coronary arteriosclerosis 08-28-2021 Chronic Deficiency and other anemia (8 sources) Macrocytic anemia 02-19-2022 Episodic Deficiency and other anemia (2 sources) Nutritional anemia, unspecified; Translations: [Nutritional anemia, unspecified] Onset: 3 Episodic Diabetes mellitus without complication (15 sources) Type 2 diabetes mellitus; Translations: [Type 2 diabetes mellitus without complications] Onset: 3 08-11-2019 Chronic Disorders of lipid metabolism (15 sources) Hyperlipidemia; Translations: [Hyperlipidemia, unspecified] Onset: 3 08-28-2021 Chronic Esophageal disorders (13 sources) Gastroesophageal reflux disease 08-11-2019 Chronic Essential hypertension (10 sources) Hypertensive disorder; Translations: [Essential (primary) hypertension] Onset: 3 08-11-2019 Chronic Genitourinary symptoms and ill-defined conditions (15 sources) Mixed urinary incontinence; Translations: [Mixed incontinence] Onset: 3 06-16-2019 Chronic Heart valve disorders (13 sources) Mitral valve regurgitation 08-18-2021 Chronic Mood disorders (13 sources) Depressive disorder 08-11-2019 Chronic Nutritional deficiencies (13 sources) Vitamin D deficiency 08-11-2019 Chronic Osteoarthritis (14 sources) Osteoarthritis of multiple joints ; Translations: [Osteoarthritis of knee] 08-11-2019 Chronic Other gastrointestinal disorders (13 sources) Irritable bowel syndrome 05-08-2021 Chronic Other infections; including parasitic (13 sources) History of hepatitis A 08-11-2019 Episodic Other inflammatory condition of skin (13 sources) Psoriasis 08-23-2020 Chronic Other injuries and conditions due to external causes (1 source) Traumatic AND/OR non-traumatic injury; Translations: [Other injury of unspecified body region, initial encounter] Episodic Other liver diseases (6 sources) Elevated liver enzymes level 08-27-2022 Episodic Other liver diseases (2 sources) Abnormal levels of other serum enzymes; Translations: [Abnormal levels of other serum enzymes] Onset: 3 Episodic Other lower respiratory disease (9 sources) Dyspnea 08-28-2021 Episodic Other nutritional; endocrine; and metabolic disorders (6 sources) Morbid obesity 12-03-2022 Chronic Other nutritional; endocrine; and metabolic disorders (2 sources) Body mass index 40+ - severely obese 05-20-2023 Chronic Residual codes; unclassified (13 sources) Edema 08-11-2019 Episodic Past or Other Problems Problem Classification Problem Date Documented Da te Episodic/Chronic Unclassified (1 source) ABNORMAL STRESS Onset: 09-06-2018 Results Test Name Value Interpretation Reference Range Facil ity Vital Signs Date Time Vital Sign Value Performing Clinician Pancho maier 07-06-2022 10:52-0400 Diastolic Blood Pressure NBP [address] MIGUEL BETANCOURT MD [facility] 07-06-2022 10:52-0400 Respiratory rate 20 /min DR MIGUEL BETANCOURT MD [facility] 07-06-2022 10:52-0400 Systolic Blood Pressure NBP [address] MIGUEL BETANCOURT MD [facility] 07-06-2022 10:46-0400 Diastolic Blood Pressure NBP [address] MIGUEL BETANCOURT MD [facility] 07-06-2022 10:46-0400 Heart rate 78 /min DR MIGUEL BETANCOURT MD [facility] 07-06-2022 10:46-0400 Respiratory rate 19 /min DR MIGUEL BETANCOURT MD [facility] 07-06-2022 10:46-0400 Systolic Blood Pressure NBP [address] MIGUEL BETANCOURT MD [facility] 07-06-2022 10:43-0400 Diastolic Blood Pressure NBP [address] MIGUEL BETANCOURT MD [facility] 07-06-2022 10:43-0400 Heart rate 75 /min DR MIGUEL BETANCOURT MD [facility] 07-06-2022 10:43-0400 Respiratory rate 22 /min DR MIGUEL BETANCOURT MD [facility] 07-06-2022 10:43-0400 Systolic Blood Pressure NBP [address] MIGUEL BETANCOURT MD [facility] 07-06-2022 10:38-0400 Heart rate 78 /min DR MIGUEL BETANCOURT MD [facility] 07-06-2022 08:53-0400 Body height [address] MIGUEL BETANCOURT MD [facility] 07-06-2022 08:53-0400 Body weight [address] MIGUEL BETANCOURT MD [facility] 07-06-2022 08:47-0400 Body height [address] MIGUEL BETANCOURT MD [facility] 07-06-2022 08:47-0400 Body temperature 98.24 [degF] DR MIGUEL BETANCOURT MD [facility] 07-06-2022 08:47-0400 Body weight [address] MIGUEL BETANCOURT MD [facility] 07-06-2022 08:47-0400 Heart rate 75 /min DR MIGUEL BETANCOURT MD [facility] 10-21-2021 09:56-0500 Diastolic blood pressure 78 mm[Hg] CINDI DELAROSA DO [facility] 10-21-2021 09:56-0500 Heart rate 91 /min CINDI DELAROSA DO [facility] 10-21-2021 09:56-0500 Mean blood pressure 114 mm[Hg] CINDI DELAROSA DO [facility] 10-21-2021 09:56-0500 Respiratory rate 16 /min CINDI DELAROSA DO [facility] 10-21-2021 09:56-0500 Systolic blood pressure 185 mm[Hg] CINDI DELAROSA DO [facility] 10-21-2021 08:43-0500 Diastolic blood pressure 85 mm[Hg] CINDI DELAROSA DO [facility] 10-21-2021 08:43-0500 Heart rate 91 /min CINDI DELAROSA DO [facility] 10-21-2021 08:43-0500 Mean blood pressure 114 mm[Hg] CINDI DELAROSA DO [facility] 10-21-2021 08:43-0500 Respiratory rate 18 /min CINDI DELAROSA DO [facility] 10-21-2021 08:43-0500 Systolic blood pressure 172 mm[Hg] CINDI DELAROSA DO [facility] 10-21-2021 08:12-0500 Body temperature 96.8 [degF] CINDI DELAROSA DO [facility] 10-21-2021 08:12-0500 Diastolic blood pressure 93 mm[Hg] CINDI DELAROSA DO [facility] 10-21-2021 08:12-0500 Heart rate 100 /min CINDI DELAROSA DO [facility] 10-21-2021 08:12-0500 Mean blood pressure 139 mm[Hg] CINDI DELAROSA DO [facility] 10-21-2021 08:12-0500 Respiratory rate 20 /min CINDI DELAROSA DO [facility] 10-21-2021 08:12-0500 Systolic blood pressure 231 mm[Hg] CINDI DELAROSA DO [facility] Encounters Encounter Date Encounter Type Care Provider Facility Start: 09-30-2023 End: 10-05-2023 ambulatory RUSS Batista BRANDY SAFETY ASSISTANT - STAFFING MANAGER Facility:B Start: 09-30-2023 End: 10-04-2023 Outreach Lab RUSS NAVA SAFETY ASSISTANT - STAFFING MANAGER [facility] [place] Start: 05-20-2023 End: 05-25-2023 ambulatory RUSS NAVA SAFETY ASSISTANT - STAFFING MANAGER Facility:[facility] Start: 05-20-2023 End: 05-24-2023 Outreach Lab RUSS NAVA SAFETY ASSISTANT - STAFFING MANAGER [facility] [place] Start: 05-12-2023 End: 05-13-2023 ambulatory WILLIAM SALGADO SAFETY ASSISTANT-STAFFING MANAGER Facility:B Start: 05-12-2023 End: 05-12-2023 Patient encounter procedure WILLIAM SALGADO SAFETY ASSISTANT-STAFFING MANAGER [facility] Start: 04-05-2023 End: 04-06-[address] BEN KERR MD Facility:B Start: 04-05-2023 End: 04-05-[address] BEN KERR MD [facility] Start: 04-02-2023 ambulatory JEISON GARCÍA PA-C Faci lity:B Start: 01-15-2023 End: 01-16-2023 ambulatory RUSS CARYPKINS SAFETY ASSISTANT - STAFFING MANAGER Facility:B Start: 01-15-2023 End: 01-15-2023 Patient encounter procedure RUSS NAVA SAFETY ASSISTANT - STAFFING MANAGER [facility] Start: 09-11-2022 End: 12-08-[address] BEN KERR MD [facility] Start: 07-06-2022 End: 07-06-[address] MIGUEL BETANCOURT MD [facility] Start: 06-04-2022 End: 06-04-2022 Patient encounter procedure WILLIAM SALGADO SAFETY ASSISTANT-STAFFING MANAGER [facility] Start: 02-14-2022 End: 02-14-2022 Patient encounter procedure EUGENE DAVEY SAFETY ASSISTANT-STAFFING MANAGER [facility] Start: 12-30-2021 End: 12-30-2021 Patient encounter procedure EUGENE DAVEY SAFETY ASSISTANT-STAFFING MANAGER [facility] Start: 10-21-2021 End: 10-21-2021 Emergency department patient visit CINDI Kraus ISAURA ANN [facility] Start: 10-14-2021 End: 10-14-2021 Patient encounter procedure RUSS NAVA SAFETY ASSISTANT - STAFFING MANAGER [facility] Start: 09-15-2021 End: 09-15-2021 Patient encounter procedure WILLIAM SALGADO SAFETY ASSISTANT-STAFFING MANAGER [facility] Start: 09-06-2018 [facility] and [facility] Facility[facility] Procedures Date Procedure Procedure Detail Performing Clinician Start: 08-25-2019 Esophagogastroduodenoscopy WILLIAM SALGADO SAFETY ASSISTANT-STAFFING MANAGER Start: 09-06-[address] [facility] Start: 06-29-2015 Laparoscopic cholecystectomy WILLIAM FISH SAFETY ASSISTANT-STAFFING MANAGER Appendectomy WILLIAM FISH AP RN-STAFFING MANAGER Immunizations Immunization Date Immunization Notes Care Provider Dean jones 03-15-2021 SARS-CoV-2 (COVID-19 ) mRNA BNT-162b2 vax WILLIAM FISH SAFETY ASSISTANT-STAFFING MANAGER [facility] 02-23-2021 SARS-CoV-2 (COVID-19 ) mRNA BNT-162b2 vax WILLIAM FISH SAFETY ASSISTANT-STAFFING MANAGER [facility] 12-28-2016 influenza virus vacc ine, unspecified formulation WILLIAM FISH SAFETY ASSISTANT-STAFFING MANAGER [facility] 12-28-2016 pneumococcal conjuga te vaccine, 13 valent WILLIAM FISH SAFETY ASSISTANT-STAFFING MANAGER [facility] 11-29-2016 pneumococcal conjuga te vaccine, 13 valent WILLIAM FISH SAFETY ASSISTANT-STAFFING MANAGER [facility] 10-28-2016 pneumococcal conjuga te vaccine, 13 valent WILLIAM FISH SAFETY ASSISTANT-STAFFING MANAGER [facility] 06-07-2015 pneumococcal conjuga te vaccine, 13 valent WILLIAM FISH SAFETY ASSISTANT-STAFFING MANAGER [facility] 08-30-2014 influenza virus vacc ine, unspecified formulation WILLIAM FISH SAFETY ASSISTANT-STAFFING MANAGER [facility] 11-13-2013 pneumococcal polysaccharide vaccine, 23 valent WILLIAM FISH SAFETY ASSISTANT-STAFFING MANAGER [facility] 09-14-2013 influenza virus vacc ine, unspecified formulation WILLIAM SALGADO SAFETY ASSISTANT-STAFFING MANAGER [facility] 09-14-2013 pneumococcal polysaccharide vaccine, 23 valent WILLIAM SALGADO SAFETY ASSISTANT-STAFFING MANAGER [facility] 09-14-2013 tetanus toxoid, redu sonia diphtheria toxoid, and acellular pertussis vaccine, adsorbed WILLIAM SALGADO SAFETY ASSISTANT-STAFFING MANAGER [facility] 11-29-2012 pneumococcal polysaccharide vaccine, 23 valent WILLIAM SALGADO SAFETY ASSISTANT-STAFFING MANAGER [facility] 10-28-2012 pneumococcal polysaccharide vaccine, 23 valent WILLIAM SALGADO SAFETY ASSISTANT-STAFFING MANAGER [facility] 11-29-2004 tetanus and diphther ia toxoids, adsorbed, preservative free, for adult use (5 Lf of tetanus toxoid and 2 Lf of diphtheria toxoid) WILLIAM SALGADO SAFETY ASSISTANT-STAFFING MANAGER [facility] 10-28-2004 tetanus and diphther ia toxoids, adsorbed, preservative free, for adult use (5 Lf of tetanus toxoid and 2 Lf of diphtheria toxoid) WILLIAM SALGADO SAFETY ASSISTANT-STAFFING MANAGER [facility] Payers Date Payer Category Payer Private Health Insurance [id number] 2017 Private Health Insurance [id number] 1945 Unknown [id number] 1945 Unknown [id number] [id number] 1943 Unknown [id number] [id number] [id number] 1943 Unknown [id number] [id number] 1943 Unknown [id number] [id number] 1943 Unknown [id number] [id number] Unknown [id number] [id number] [id number] Social History Date Type Detail Facility Start: 06-16-2019 Never smoked tobacco (f inding) [facility] Functional Status Date Assessment Result Facility 09-11-2022 Functional Status Home Living Ad ditional Information Objective: Cardiovascular screen: BP: 142/84 HR: 60 BPM SpO2%: 95% Gait: Antalgic with cane. Tends to hold onto various items for stability and balance Weight bearing status: no current restrictions Sensation: grossly intact to light touch bilat LE's Effusion: Pt has bilateral LE edema. Foot: Pes planus bilat ROM: see chart bilat Strength: see chart Functional Strength: limited with sit to stand tends to weight shift L Palpation: Denies calf pain or tenderness. Special Tests: Not performed [facility] 07-06-2022 Functional Status Awake, Repositions self [facility] 07-06-2022 Functional Status Maintained [facility] Mental Status Date Assessment Result Facility 09-11-2022 Mental Status Orientation Asse ssment Oriented x 4 [facility] 07-06-2022 Mental Status Orientation Oriented x 4 [facility] 07-06-2022 Mental Status [facility] Clinical Notes 09-17-2021 to 05-23-2023 Note Date & Type Note Facility 05-23-2023 Note . MICRO - Microbiology PROCEDURE: Urine Culture [*1] SOURCE: Urine, Clean Catch BODY SITE: COLLECTED DATE/TIME: 05/20/2023 21:27 EDT RECEIVED DATE/TIME: 05/21/2023 13:58 EDT START DATE/TIME: 05/21/2023 13:58 EDT FREE TEXT SOURCE: FINAL REPORTS Final Report [] Verified Date/Time/Personnel: 05/23/2023 08:54 EDT 50,000 - 100,000 cfu/ml Mixed growth consistent with normal urogenital sabina. PRELIMINARY REPORTS Preliminary Report [] Verified Date/Time/Personnel: 05/22/2023 12:04 EDT No growth to date Performing Locations *1: This test was performed at: [address], [facility] , [facility] ([place]) 05-12-2023 Note ORIGINAL NM MYOCARDIAL SPECT STRESS/REST CLINICAL STATEMENT: CAD, preop TECHNIQUE: Lexiscan dose:0.4 mg Radiopharmaceutical (stress): Tc-99m Sestamibi Dose:30.2 mCi Radiopharmaceutical (rest): Tc-99m Sestamibi Dose:10.6 mCi SPECT acquisition and processing Reconstruction and reorientation of SPECT images into short axis, vertical and horizontal long axis planes Quantitative LVEF assessment COMPARISON:09/15/2021 REPORT:The LEFT ventricle is normal in size. On gated imaging the ejection fraction is normal at 70% with normal wall motion. On stress images there is a decrease in the uptake of activity in the anterior wall which improves on rest images. There otherwise is relatively homogenous uptake of activity in other areas the myocardium. IMPRESSION: 1. Reversible defect in the anterior wall suggesting ischemia in this area. 2. Normal ejection fraction of 70% with normal wall motion. 3. Compared to the prior study image quality is significantly improved. The prior test was a poor quality study. Interpreted By: Kofi Alcocer MD Preliminary Report By: Kofi Alcocer MD Electronically Signed By: Kofi Alcocer MD Dictated Date: 05/12/2023 12:51:29 PM Prelim Date: 05/12/2023 12:51:29 PM Sign Date: 05/12/2023 12:55:09 PM Ordering Provider:[facility] 05-12-2023 Note ORIGINAL NM MYOCARDIAL SPECT STRESS/REST CLINICAL STATEMENT: CAD, preop TECHNIQUE: Lexiscan dose:0.4 mg Radiopharmaceutical (stress): Tc-99m Sestamibi Dose:30.2 mCi Radiopharmaceutical (rest): Tc-99m Sestamibi Dose:10.6 mCi SPECT acquisition and processing Reconstruction and reorientation of SPECT images into short axis, vertical and horizontal long axis planes Quantitative LVEF assessment COMPARISON:09/15/2021 REPORT:The LEFT ventricle is normal in size. On gated imaging the ejection fraction is normal at 70% with normal wall motion. On stress images there is a decrease in the uptake of activity in the anterior wall which improves on rest images. There otherwise is relatively homogenous uptake of activity in other areas the myocardium. IMPRESSION: 1. Reversible defect in the anterior wall suggesting ischemia in this area. 2. Normal ejection fraction of 70% with normal wall motion. 3. Compared to the prior study image quality is significantly improved. The prior test was a poor quality study. Interpreted By: Kofi Alcocer MD Preliminary Report By: Kofi Alcocer MD Electronically Signed By: Kofi Alcocer MD Dictated Date: 05/12/2023 12:51:29 PM Prelim Date: 05/12/2023 12:51:29 PM Sign Date: 05/12/2023 12:55:09 PM Ordering Provider:[facility] 04-05-2023 Note ORIGINAL EXAMINATION: CT OF THE RIGHT KNEE WITHOUT CONTRAST 04/05/2023 12:07 pm TECHNIQUE: CT of the right knee was performed without the administration of intravenous contrast. Multiplanar reformatted images are provided for review. Automated exposure control, iterative reconstruction, and/or weight based adjustment of the mA/kV was utilized to reduce the radiation dose to as low as reasonably achievable. COMPARISON: Knee radiographs 10/21/2021. HISTORY ORDERING SYSTEM PROVIDED HISTORY: Reason for Exam: Unilateral primary osteoarthritis, right knee. FINDINGS: No acute fracture or dislocation. There is a mild diffuse decrease in osseous mineralization. No visible aggressive osseous lesions. Mild chondrocalcinosis. There is severe medial femorotibial compartment joint space narrowing with subchondral sclerosis and sizable marginal osteophytes. Mild chondrocalcinosis. There is moderate lateral femorotibial compartment joint space narrowing with marginal osteophytes, central osteophytes, and subchondral sclerosis. There is mild to moderate patellofemoral compartment joint space narrowing with subchondral sclerosis, marginal osteophytes, and subtle chondrocalcinosis. There is a small volume joint effusion. Small intracapsular bodies are noted of the infrapatellar recess as well as the posterior aspect of the intercondylar notch measuring up to 0.5 cm. Trace volume Delarosa's cyst.. Tendons and ligaments are suboptimally evaluated on this examination. Insertional quadriceps enthesopathy. No significant muscle atrophy. Provided images of the hip and hemipelvis exhibit no acute osseous abnormalities or aggressive osseous lesions. Moderate degenerative changes of the pubic symphysis. The included intrapelvic contents exhibit no acute abnormalities. Pronounced colonic diverticulosis without evidence of acute diverticulitis. Provided images of the ankle exhibit no acute osseous abnormalities or aggressive osseous lesions. Nonspecific scattered subcutaneous edema of the lower leg. Venous varices. IMPRESSION: 1. No acute osseous abnormalities or aggressive osseous lesions. 2. Tricompartmental degenerative change with chondrocalcinosis, most advanced of the medial femorotibial compartment. Small volume effusion. Trace volume Delarosa's cyst. Interpreted by: Aidan Mcdowell DO Preliminary Report By: Aidan Mcdowell DO Electronically signed By Aidan Mcdowell DO Dictated Date: 04/05/2023 12:33:12 PM Prelim Date: 04/05/2023 12:46:20 PM Sign Date: 04/05/2023 12:46:20 PM Ordering Provider: BEN KERR [facility] 04-05-2023 Note ORIGINAL EXAMINATION: CT OF THE RIGHT KNEE WITHOUT CONTRAST 04/05/2023 12:07 pm TECHNIQUE: CT of the right knee was performed without the administration of intravenous contrast. Multiplanar reformatted images are provided for review. Automated exposure control, iterative reconstruction, and/or weight based adjustment of the mA/kV was utilized to reduce the radiation dose to as low as reasonably achievable. COMPARISON: Knee radiographs 10/21/2021. HISTORY ORDERING SYSTEM PROVIDED HISTORY: Reason for Exam: Unilateral primary osteoarthritis, right knee. FINDINGS: No acute fracture or dislocation. There is a mild diffuse decrease in osseous mineralization. No visible aggressive osseous lesions. Mild chondrocalcinosis. There is severe medial femorotibial compartment joint space narrowing with subchondral sclerosis and sizable marginal osteophytes. Mild chondrocalcinosis. There is moderate lateral femorotibial compartment joint space narrowing with marginal osteophytes, central osteophytes, and subchondral sclerosis. There is mild to moderate patellofemoral compartment joint space narrowing with subchondral sclerosis, marginal osteophytes, and subtle chondrocalcinosis. There is a small volume joint effusion. Small intracapsular bodies are noted of the infrapatellar recess as well as the posterior aspect of the intercondylar notch measuring up to 0.5 cm. Trace volume Delarosa's cyst.. Tendons and ligaments are suboptimally evaluated on this examination. Insertional quadriceps enthesopathy. No significant muscle atrophy. Provided images of the hip and hemipelvis exhibit no acute osseous abnormalities or aggressive osseous lesions. Moderate degenerative changes of the pubic symphysis. The included intrapelvic contents exhibit no acute abnormalities. Pronounced colonic diverticulosis without evidence of acute diverticulitis. Provided images of the ankle exhibit no acute osseous abnormalities or aggressive osseous lesions. Nonspecific scattered subcutaneous edema of the lower leg. Venous varices. IMPRESSION: 1. No acute osseous abnormalities or aggressive osseous lesions. 2. Tricompartmental degenerative change with chondrocalcinosis, most advanced of the medial femorotibial compartment. Small volume effusion. Trace volume Delarosa's cyst. Interpreted by: Aidan Mcdowell DO Preliminary Report By: Aidan Mcdowell DO Electronically signed By Aidan Mcdowell DO Dictated Date: 04/05/2023 12:33:12 PM Prelim Date: 04/05/2023 12:46:20 PM Sign Date: 04/05/2023 12:46:20 PM Ordering Provider: [facility] ADMISSION HISTORY AN D PHYSICIAL CHIEF COMPLAINT: HISTORY OF PRESENT ILLNESS: REVIEW OF SYSTEMS: ACTIVE PROBLEMS: (22) Anemia, macrocytic (205945224) CAD in campo artery (41567855) Chronic edema (110214672) Chronic pain of right knee (9267815289) CKD (chronic kidney disease), stage III (7825127385) Depression, prolonged (94307115) DM type 2, goal HbA1c < 7.5% (612176580) GERD (gastroesophageal reflux disease) (919792153) History of heart artery stent (8561601061) History of hepatitis A (6381393611) HTN, goal below 140/90 (9452870608) Hyperlipemia (19283648) Hypothyroidism (06341905) IBS (diarrhea) (84307690) Increased BMI (body mass index) (89840729) Mitral regurgitation (56570521) Mixed incontinence (4870684745) Osteoarthritis of multiple joints (4550054032) Psoriasis (50590191) Right heart failure, unspecified (638655546) SOB (shortness of breath) (641794356) Vitamin D deficiency (33742851) MEDICATIONS: Active Inpt Meds: None Active PRN Meds: None One Time Meds: None Active IV Meds: Lactated Ringers Infusion 1,000 mL (LR 1,000 mL) Start: 07/06/22 8:46:00 EDT, Rate: 50 mL/hr, 07/06/22 8:46:00 EDT ALLERGIES: (4) codeine Indocin penicillin sulfamethoxazole FAMILY HISTORY: SOCIAL HISTORY: PHYSICAL EXAM: VITALS: DthzvyLlovLRUpnpvLFHtD7UAV7ZbyqQb(kg) 07/06 08:4736.8135/80374236LM59/32562.0 07/06115.0 24 Hr Tmax: 36.8 at 07/06 08:47 36 Hr Tmax: 36.8 at 07/06 08:47 Vital Signs are the last 5 in the past 48 hours. Weights display the last 5 within 7 days. Initial Wt: 07/06 115.0 kg 253 lb Current Wt: 07/06 115.0 kg 253 lb GENERAL: HEENT: CARDIOVASCULAR: RESPIRATORY: ABDOMEN: EXREMETIES: NEUROLOGICAL: PSYCHIATRIC: LABS: No 36hr Lab Data DIAGNOSTICS: IMPRESSION: PLAN: History and Physical Update I have examined the patient; reviewed the H&P and there are no changes to the H&P unless noted below. Future Appointments Appointment Date:08/20/2022 09:00:00 AM Scheduled Provider: Location:[facility] Appointment Type:PC Nurse Lab Appointment Date:08/27/2022 10:20:00 AM Scheduled Provider:RUSS NAVA APRN, CNP Location:[facility] Appointment Type:PC OV Follow Up Appointment Date:11/25/2022 11:00:00 AM Scheduled Provider:WILLIAM SALGADO Location:[facility] Appointment Type:CV OV Future Scheduled Tests Laboratory* Clostridium difficile (PCR) 05/19/22 * Renin, Plasma 08/22/22 * Basic Metabolic Panel 08/28/21 * Thyroid Stimulating Hormone 08/22/22 * Free T4 08/22/22 * Stool Culture 05/19/22 * A1C Hemoglobin 08/22/22 * A1C Hemoglobin 02/15/22 * A1C Hemoglobin 08/08/21 * Complete Blood Count 05/19/22 * Complete Blood Count 08/22/22 * Lipid Profile 05/19/22 * Lipid Profile 08/22/22 * Lipid Profile 08/08/21 * Microalbumin Level Urine 08/22/22 * PTH, Intact 08/22/22 * Vitamin D Level 08/22/22 * Complete Metabolic Panel 05/19/22 * Complete Metabolic Panel 08/22/22 * Complete Metabolic Panel 08/08/21 * N-Terminal proBNP 08/28/21 * N-Terminal proBNP 05/19/22 * Respiratory ID Panel with COVID-19 by PCR 02/14/22 * [facility] [place]Blood Specimens) 12/29/21 Radiology* XR Knee 3 Views Right 10/06/21 [facility] 08-08-2022 Hospital Discharge instructions Patient Education 07/06/2022 10:54:29 Moderate Conscious Sedation, Adult, Care After Moderate Conscious Sedation, Adult, Care After These instructions provide you with information about caring for yourself after your procedure. Your health care provider may also give you more specific instructions. Your treatment has been plannedaccording to current medical practices, but problems sometimes occur. Call your health care provider if you have any problems or questions after your procedure. What can I expect after the procedure? After your procedure, it is common: To feel sleepy for several hours. To feel clumsy and have poor balance for several hours. To have poor judgment for several hours. To vomit if you eat too soon. Follow these instructions at home: For at least 24 hours after the procedure: Do not: ?Participate in activities where you could fall or become injured. ?Drive. ?Use heavy machinery. ?Drink alcohol. ?Take sleeping pills or medicines that cause drowsiness. ?Make important decisions or sign legal documents. ?Take care of children on your own. Rest. Eating and drinking Follow the diet recommended by your health care provider. If you vomit: ?Drink water, juice, or soup when you can drink without vomiting. ?Make sure you have little or no nausea before eating solid foods. General instructions Have a responsible adult stay with you until you are awake and alert. Take ssxj-qxc-fdjbevm and prescription medicines only as told by your health care provider. If you smoke, do not smoke without supervision. Keep all follow-up visits as told by your health care provider. This is important. Contact a health care provider if: You keep feeling nauseous or you keep vomiting. You feel light-headed. You develop a rash. You have a fever. Get help right away if: You have trouble breathing. This information is not intended to replace advice given to you by your health care provider. Make sure you discuss any questions you have with your health care provider. Document Released: 09/05/2014 Document Revised: 10/28/2018 Document Reviewed: 03/06/2017 [employer]forty Patient Education 2020 [email or web address]. 07/06/2022 10:54:18 Colonoscopy, Adult, Care After, Mcap-sq-Guqh Colonoscopy, Adult, Care After This sheet gives you information about how to care for yourself after your procedure. Your doctor may also give you more specific instructions. If you have problems or questions, call your doctor. What can I expect after the procedure? After the procedure, it is common to have: A small amount of blood in your poop for 24 hours. Some gas. Mild cramping or bloating in your belly. Follow these instructions at home: General instructions For the first 24 hours after the procedure: ?Do not drive or use machinery. ?Do not sign important documents. ?Do not drink alcohol. ?Do your daily activities more slowly than normal. ?Eat foods that are soft and easy to digest. Take swaj-yoi-gwmqvzz or prescription medicines only as told by your doctor. To help cramping and bloating: Try walking around. Put heat on your belly (abdomen) as told by your doctor. Use a heat source that your doctor recommends, such as a moist heat pack or a heating pad. ?Put a towel between your skin and the heat source. ?Leave the heat on for 20 30 minutes. ?Remove the heat if your skin turns bright red. This is especially important if you cannot feel pain, heat, or cold. You can get burned. Eating and drinking Drink enough fluid to keep your pee (urine) clear or pale yellow. Return to your normal diet as told by your doctor. Avoid heavy or fried foods that are hard to digest. Avoid drinking alcohol for as long as told by your doctor. Contact a doctor if: You have blood in your poop (stool) 2 3 days after the procedure. Get help right away if: You have more than a small amount of blood in your poop. You see large clumps of tissue (blood clots) in your poop. Your belly is swollen. You feel sick to your stomach (nauseous). You throw up (vomit). You have a fever. You have belly pain that gets worse, and medicine does not help your pain. Summary After the procedure, it is common to have a small amount of blood in your poop. You may also have mild cramping and bloating in your belly. For the first 24 hours after the procedure, do not drive or use machinery, do not sign important documents, and do not drink alcohol. Get help right away if you have a lot of blood in your poop, feel sick to your stomach, have a fever, or have more belly pain. This information is not intended to replace advice given to you by your health care provider. Make sure you discuss any questions you have with your health care provider. Document Released: 12/18/2011 Document Revised: 09/15/2018 Document Reviewed: 08/09/2017 [employer]forty Patient Education 2020 [email or web address]. Follow Up Care 06/26/2022 08:05:54 With:MIGUEL BETANCOURT MD Address: [address] [facility] [address] [place] [phone] When: Unknown Comments:Follow up as directed by Dr Betancourt. [facility] 08-08-2022 Summary of episode note Discharge Instructions Thank you for allowing [facility] to assist you with your healthcare needs. The following is importantdischarge information regarding your hospital visit. Your Care Team RUSS NAVA APRN, CNP What to do next Scheduled Follow-Up Appointments Appointment Type When With Where Contact InformationPC Nurse Lab 08/20/2022 09:00 AM EDT [facility] OV Follow Up 08/27/2022 10:20 AM EDT RUSS NAVA APRN, CNP [facility] 11/25/2022 11:00 AM ZUNILDA WILLIAM SALGADO MICHELLE [facility] CV Follow Up Appointments Follow Up with MIGUEL BETANCOURT MD When Why: Follow up as directed by Dr Betancourt. Where: [address] [place] [phone] The Following Activity and Diet Have Been Ordered for You No qualifying data available. No qualifying data available. The Following Equipment Has Been Ordered for You No qualifying data available. The Following Treatments Have Been Ordered for You Discharge Labs No qualifying data available. Discharge Radiology No qualifying data available. Other Therapies No qualifying data available. Post Acute Orders No qualifying data available. Someone Will Contact You Regarding These Home Health Referrals No home referrals have been ordered for you. No one will call you. Allergies Indocin (NAUSEA) codeine (MAKE ME CRAZY) penicillin (HIVES) sulfamethoxazole (HIVES) Medications Please ask your primary doctor or pharmacist before taking any other medication not listed, including over the counter drugs, herbal medications, vitamins and or supplements as they may interact withyour home medications. What How Much When Why Instructions Last Dose Unchanged albuterol (Ventolin HFA MDI (90 mcg/ inh) inhalation aerosol) 1 puff(s) by inhalation Every 4 hours as needed for as needed for wheezing Unchanged aspirin (aspirin 325 mg oral delayed release tablet) 1 tab(s) by mouth Once a day Unchanged cholecalciferol (cholecalciferol 1250 mcg (50,000 intl units) oral capsule) 1 cap by mouth Every week Duration: 90 Days Unchanged citalopram (citalopram 40 mg oral tablet) 1 tab(s) by mouth Every day Depression, prolonged Unchanged levothyroxine (levothyroxine 112 mcg (0.112 mg) oral tablet) 1 tab(s) by mouth Once a day Unchanged lisinopril (lisinopril 20 mg oral tablet) 1 tab(s) by mouth Once a day Benign essential HTN Unchanged loperamide (Imodium A-D 2 mg oral tablet) 1 tab(s) by mouth Three (3) times a day IBS (diarrhea) PRN for diarrhea Unchanged metoprolol (metoprolol succinate 50 mg oral TABLET extended release) 1 tab(s) by mouth Every day Benign essential HTN Unchanged nystatin topical (Nyamyc 100,000 units/ g topical powder) See instructions Apply topically to affected area once daily Unchanged oxybutynin (oxybutynin 15 mg/ 24 hr oral tablet, extended release) 1 tab(s) by mouth Once a day Unchanged pantoprazole (pantoprazole 40 mg oral enteric coated tablet) 1 tab(s) by mouth Once a day GERD (gastroesophageal reflux disease) Duration: 90 Days Unchanged pravastatin (pravastatin 40 mg oral tablet) 1 tab(s) by mouth Daily at bedtime Unchanged torsemide (torsemide 20 mg oral tablet) 1 tab(s) by mouth Every day Please take this list to your next doctor s visit. Bring all medications you take, including over the counter medications, herbals and other supplements with you to your doctor s visit. Patients and families are reminded to discard old lists and to update any records with all medication providers or retail pharmacies. Education Materials Moderate Conscious Sedation, Adult, Care After These instructions provide you with information about caring for yourself after your procedure. Your health care provider may also give you more specific instructions. Your treatment has been plannedaccording to current medical practices, but problems sometimes occur. Call your health care provider if you have any problems or questions after your procedure. What can I expect after the procedure? After your procedure, it is common: To feel sleepy for several hours. To feel clumsy and have poor balance for several hours. To have poor judgment for several hours. To vomit if you eat too soon. Follow these instructions at home: For at least 24 hours after the procedure: Do not: ? Participate in activities where you could fall or become injured. ? Drive. ? Use heavy machinery. ? Drink alcohol. ? Take sleeping pills or medicines that cause drowsiness. ? Make important decisions or sign legal documents. ? Take care of children on your own. Rest. Eating and drinking Follow the diet recommended by your health care provider. If you vomit: ? Drink water, juice, or soup when you can drink without vomiting. ? Make sure you have little or no nausea before eating solid foods. General instructions Have a responsible adult stay with you until you are awake and alert. Take thea-cqq-eoefuho and prescription medicines only as told by your health care provider. If you smoke, do not smoke without supervision. Keep all follow-up visits as told by your health care provider. This is important. Contact a health care provider if: You keep feeling nauseous or you keep vomiting. You feel light-headed. You develop a rash. You have a fever. Get help right away if: You have trouble breathing. This information is not intended to replace advice given to you by your health care provider. Make sure you discuss any questions you have with your health care provider. Document Released: 09/05/2014 Document Revised: 10/28/2018 Document Reviewed: 03/06/2017 [employer]forty Patient Education 2020 [email or web address]. Colonoscopy, Adult, Care After This sheet gives you information about how to care for yourself after your procedure. Your doctor may also give you more specific instructions. If you have problems or questions, call your doctor. What can I expect after the procedure? After the procedure, it is common to have: A small amount of blood in your poop for 24 hours. Some gas. Mild cramping or bloating in your belly. Follow these instructions at home: General instructions For the first 24 hours after the procedure: ? Do not drive or use machinery. ? Do not sign important documents. ? Do not drink alcohol. ? Do your daily activities more slowly than normal. ? Eat foods that are soft and easy to digest. Take iryl-fdj-cvtsvfi or prescription medicines only as told by your doctor. To help cramping and bloating: Try walking around. Put heat on your belly (abdomen) as told by your doctor. Use a heat source that your doctor recommends, such as a moist heat pack or a heating pad. ? Put a towel between your skin and the heat source. ? Leave the heat on for 20 30 minutes. ? Remove the heat if your skin turns bright red. This is especially important if you cannot feel pain, heat, or cold. You can get burned. Eating and drinking Drink enough fluid to keep your pee (urine) clear or pale yellow. Return to your normal diet as told by your doctor. Avoid heavy or fried foods that are hard to digest. Avoid drinking alcohol for as long as told by your doctor. Contact a doctor if: You have blood in your poop (stool) 2 3 days after the procedure. Get help right away if: You have more than a small amount of blood in your poop. You see large clumps of tissue (blood clots) in your poop. Your belly is swollen. You feel sick to your stomach (nauseous). You throw up (vomit). You have a fever. You have belly pain that gets worse, and medicine does not help your pain. Summary After the procedure, it is common to have a small amount of blood in your poop. You may also have mild cramping and bloating in your belly. For the first 24 hours after the procedure, do not drive or use machinery, do not sign important documents, and do not drink alcohol. Get help right away if you have a lot of blood in your poop, feel sick to your stomach, have a fever, or have more belly pain. This information is not intended to replace advice given to you by your health care provider. Make sure you discuss any questions you have with your health care provider. Document Released: 12/18/2011 Document Revised: 09/15/2018 Document Reviewed: 08/09/2017 [employer]forty Patient Education 2020 [email or web address]. Additional Information VACCINATE! IT SAVES LIVES! Members of the community who have not yet received the COVID-19 vaccine and would like to receive it can visit one of [facility] vaccine clinics. There are many vaccine clinic locations within the [facility]. For locations and available times, please visit [email or web address] It is important to note that some COVID mobile vaccine clinics are held outdoors and may be canceled in rainy or stormy conditions. To learn more about pediatric vaccinations (ages 5-11), we invite you to visit the [facility] webpage. [email or web address] [email or web address] learn more about the COVID-19 vaccine, we invite you to visit the [facility] website for a list of frequently asked questions. [email or web address] _[email or web address].pdf [facility] Patient Portal Access Instructions: Stay connected with your healthcare team and access your personal medical information anytime with the [facility] Patient Portal.If you would like a full copy of your medical records, please contact the [facility] Medical Records Department, Wednesday through Wednesday between 8a.m. and 4:30p.m. Please follow the directions below to access the portal: 1.Access the email account you provided upon registration to the [facility].2.Look for an invitation email from [facility].3.Open the email and access the invitation link: Accept Invitation to [facility]4.Fill in the required burdick to create your account. Sign into [email or web address] with your username and password that you created in the above steps to stay up to date. You can then view a summary of results, a summary of your visits, and the ability to download your summaries to your computer or send the information securely to a physician. Remember that your healthcare information is confidential, so carefully consider who you will allow to register on the [facility] Patient Portal for access to your information. You can also access the [facility] Patient Portal on the [employer] leo. Simply click on Health Records under Un[employer]Lease[employer]comData and then click on the [facility] logo. HOW TO SAFELY DISPOSE OF PRESCRIPTION MEDICATIONS Please use one of the following methods to safely dispose of your unused medications. 1.Use a drug disposal kit: the drug disposal pouch allows you to safely discard your old and unuseddrugs. Ask your nurse to give you one when you are discharged.2.Visit a local take-back location: Many local pharmacies and police departments have programs that collect old and unwanted prescriptiondrugs. Call your local pharmacy or go to http://bit.NovaTorque/7V9By5v to find one close to you.3.Make use of household items: Use cat litter or old coffee grounds to dispose medications if other options arenot available. Mix your drugs with these household products, seal them in an airtight container andthrow it into the garbage. Call [facility]: [phone] to be sure your drugs can be disposed of in this way. Some medicines may require a different approach.4.Never flush your medications down the toilet. IF YOU HAVE BEEN PRESCRIBED AN OPIOID FOR PAIN If you have been prescribed an opioid (such as hydrocodone, oxycodone or morphine), it is critical to understand the possible side effects and risks of opioid pain medications. Even when taken as directed, opioids can have several side effects including: Tolerance, meaning you might need to take more of a medication for the same pain relief. Nausea, vomiting and/or constipation. Sleepiness, dizziness, dry mouth, confusion, depression or itching. Physical dependence, meaning you have withdrawal symptoms when a medication is stopped, can develop within a few days. KNOW YOUR RESPONSIBILITIES It is important to know exactly how much and how often to take the opioid pain medications you are prescribed. Never take opioids in higher amounts or more often than prescribed. Do not combine opioids with alcohol or other drugs that cause drowsiness, such as benzodiazepines, also known as benzos, including diazepam and alprazolam, muscle relaxants or sleep aids. Never sell or share prescription opioids. This is illegal. Store opioids in a secure place and out of reach of others (including children, family, friends and visitors). The last page of this document has been signed and retained as a CHART COPY. Signatures Patient Education Materials Moderate Conscious Sedation, Adult, Care After Colonoscopy, Adult, Care After, Ofiv-ks-Ohai Medication Leaflets My discharge plan and instructions have been reviewed and explained to me and I,SHAYLEE WHEELER understand my current condition and have read and understand these discharge instructions. I have received a written copy of the plan/instructions. If I have questions, I am aware that I should contact my doctor. Patient/Modern Dancer Signature: Date/Time: Relationship to Patient: Witness Name/Signature: Date/Time: [facility] [id number] Note [facility] ADMISSION HISTORY AND PHYSICIAL CHIEF COMPLAINT: HISTORY OF PRESENT ILLNESS: REVIEW OF SYSTEMS: ACTIVE PROBLEMS: (22) Anemia, macrocytic (945803599) CAD in campo artery (12737173) Chronic edema (805963224) Chronic pain of right knee (3077042218) CKD (chronic kidney disease), stage III (6586692252) Depression, prolonged (09696001) DM type 2, goal HbA1c < 7.5% (748570792) GERD (gastroesophageal reflux disease) (338909092) History of heart artery stent (0249236271) History of hepatitis A (0928686984) HTN, goal below 140/90 (3141990812) Hyperlipemia (89342491) Hypothyroidism (74642892) IBS (diarrhea) (75739137) Increased BMI (body mass index) (96931171) Mitral regurgitation (15440805) Mixed incontinence (7799757811) Osteoarthritis of multiple joints (8352918287) Psoriasis (65386093) Right heart failure, unspecified (970018543) SOB (shortness of breath) (846674559) Vitamin D deficiency (09692282) MEDICATIONS: Active Inpt Meds: None Active PRN Meds: None One Time Meds: None Active IV Meds: Lactated Ringers Infusion 1,000 mL (LR 1,000 mL) Start: 07/06/22 8:46:00 EDT, Rate: 50 mL/hr, 07/06/22 8:46:00 EDT ALLERGIES: (4) codeine Indocin penicillin sulfamethoxazole FAMILY HISTORY: SOCIAL HISTORY: PHYSICAL EXAM: VITALS: ZwmiebIhuzOWGggteOFCnN6SYZ5MsuqIs(kg) 07/06 08:4736.8135/86710639XL31/72749.0 07/06115.0 24 Hr Tmax: 36.8 at 07/06 08:47 36 Hr Tmax: 36.8 at 07/06 08:47 Vital Signs are the last 5 in the past 48 hours. Weights display the last 5 within 7 days. Initial Wt: 07/06 115.0 kg 253 lb Current Wt: 07/06 115.0 kg 253 lb GENERAL: HEENT: CARDIOVASCULAR: RESPIRATORY: ABDOMEN: EXREMETIES: NEUROLOGICAL: PSYCHIATRIC: LABS: No 36hr Lab Data DIAGNOSTICS: IMPRESSION: PLAN: History and Physical Update I have examined the patient; reviewed the H&P and there are no changes to the H&P unless noted below. Digitally Signed by MIGUEL BETANCOURT MD on 07/06/2022 10:11 AM [facility]08-08-2022 Anesthesiology Consult note Patient: SHAYLEE WHEELER Age: 76 years Sex: Female : 1945 Associated Diagnoses: None Author: JAS REESE Preoperative Information Time of last food or liquid consumption: 07/06/2022 00:00:00 Anesthesia history Patient's history: negative. Family's history: negative. Health Status Allergies: Allergic Reactions (Selected) Severity Not Documented Codeine- Make me crazy. Indocin- Nausea. Penicillin- Hives. Sulfamethoxazole- Hives., Allergies (4) ActiveReaction codeineMAKE ME CRAZY IndocinNAUSEA penicillinHIVES sulfamethoxazoleHIVES Current medications: (Selected) Inpatient Medications Ordered LR 1,000 mL: 50 mL/hr, Intravenous Prescriptions Prescribed Imodium A-D 2 mg oral tablet: 2 mg, 1 tab(s), Oral, TID, PRN for diarrhea, 270 tab(s), 1 Refill(s) Nyamyc 100,000 units/g topical powder: See Instructions, Apply topically to affected area once daily, 30 gram(s), 0 Refill(s) Ventolin HFA MDI (90 mcg/inh) inhalation aerosol: 1 puff(s), Inhalation, q4h, PRN: as needed for wheezing, 3 EA, 0 Refill(s) cholecalciferol 1250 mcg (50,000 intl units) oral capsule: 50,000 International_Unit, 1 cap(s), Oral, qWeek, for 90 day(s), 13 cap(s), 2 Refill(s) citalopram 40 mg oral tablet: 40 mg, 1 tab(s), Oral, Daily, 90 tab(s), 1 Refill(s) levothyroxine 112 mcg (0.112 mg) oral tablet: 112 mcg, 1 tab(s), Oral, qDay, 90 tab(s), 1 Refill(s) lisinopril 20 mg oral tablet: 20 mg, 1 tab(s), Oral, qDay, 90 tab(s), 1 Refill(s) metoprolol succinate 50 mg oral TABLET extended release: 50 mg, 1 tab(s), Oral, Daily, 90 tab(s), 2Refill(s) oxybutynin 15 mg/24 hr oral tablet, extended release: 15 mg, 1 tab(s), Oral, qDay, 90 tab(s), 1 Refill(s) pantoprazole 40 mg oral enteric coated tablet: 40 mg, 1 tab(s), Oral, qDay, for 90 day(s), 90 tab(s), 1 Refill(s) pravastatin 40 mg oral tablet: 40 mg, 1 tab(s), Oral, qHS, 90 tab(s), 1 Refill(s) torsemide 20 mg oral tablet: 20 mg, 1 tab(s), Oral, Daily, 90 tab(s), 1 Refill(s) Documented Medications Documented aspirin 325 mg oral delayed release tablet: 325 mg, 1 tab(s), Oral, qDay, 90 tab(s), 0 Refill(s), Medications (1) Active Scheduled: (0) Continuous: (1) Lactated Ringers 1,000 mL 1,000 mL, Intravenous, 50 mL/hr PRN: (0) Problem list: Medical CKD (chronic kidney disease), stage III / SNOMED CT 5556907195 / Confirmed CAD in campo artery / SNOMED CT 05610956 / Confirmed Depression, prolonged / SNOMED CT 63177479 / Confirmed SOB (shortness of breath) / SNOMED CT 800288368 / Confirmed Chronic edema / SNOMED CT 244106109 / Confirmed GERD (gastroesophageal reflux disease) / SNOMED CT 022988003 / Confirmed History of hepatitis A / SNOMED CT 7924181222 / Confirmed History of heart artery stent / SNOMED CT 3573826487 / Confirmed Hyperlipemia / SNOMED CT 91096281 / Confirmed HTN, goal below 140/90 / SNOMED CT 4652319746 / Confirmed Hypothyroidism / SNOMED CT 81083196 / Confirmed Increased BMI (body mass index) / SNOMED CT 09033062 / Confirmed IBS (diarrhea) / SNOMED CT 72254506 / Confirmed Anemia, macrocytic / SNOMED CT 202355749 / Confirmed Mitral regurgitation / SNOMED CT 36112110 / Confirmed Mixed incontinence / SNOMED CT 0785300272 / Confirmed Osteoarthritis of multiple joints / SNOMED CT 3609125985 / Confirmed Chronic pain of right knee / SNOMED CT 2261000550 / Confirmed Psoriasis / SNOMED CT 92646253 / Confirmed Right heart failure, unspecified / SNOMED CT 451978615 / Confirmed DM type 2, goal HbA1c < 7.5% / SNOMED CT 713011994 / Confirmed Vitamin D deficiency / SNOMED CT 37180524 / Confirmed, Active Problems (22) Anemia, macrocytic 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 Resolved. Edema (361290382): Resolved. Comments: 03/02/2017 EDT 16:47 EDT - Lisa Guzmán RN FEET AND LOWER LEGS Fibroid, uterine ([id number]): Resolved. BP+ - Hypertension (831287134): Resolved. GERD (gastroesophageal reflux disease) ([id number]): Resolved. Diarrhea (231716290): Resolved., CAD with stent, HTN, right sided heart failure, stage 3 kidney disease, NIDDM, BMI 45 Family History: Asthma Mother () Breast cancer Sister Grandparent Heart disease Father () Heart attack Father () Kidney disease Father () Mental illness Father () Seizure Daughter Anxiety 27-May-2016 02:38:43<$> Father () Procedure history: Esophagogastroduodenoscopy ([id number]) on 08/25/2019 at 73 Years. Laparoscopic cholecystectomy (86468055) on 06/29/2015 at 69 Years. Total knee arthroplasty (9350292245). Comments: 03/02/2017 15:12 LISA MCGUIRE RN 2010 LEFT Shoulder fracture - open ([id number]). Comments: 03/02/2017 15:13 LISA MCGUIRE RN REPLACED IN 2008 Tubal ligation (300896534). Comments: 03/02/2017 15:14 LISA MCGUIRE RN 1977 Appendectomy (132700819). Comments: 03/02/2017 15:15 LISA MCGUIRE RN 1957 Tonsillectomy (815321727). Stent (965739247). Social History Social & Psychosocial Habits Alcohol 12/09/2017 Use: Current Type: Wine Frequency: 1-2 times per year 12/09/2017Risk Assessment: Low Risk Substance Abuse 12/09/2017Risk Assessment: Denies Substance Abuse 06/16/2019 Use: Never Tobacco 06/16/2019 Tobacco Use: Never (less than 100 in l Comment: childhood smoke exposure - 06/16/2019 17:03 - Columba Lindquist RN Home/Environment 06/16/2019 Primary Chief Ophthalmic Technician: self Nutrition/Health 06/16/2019 Caffeine intake amount: 3-4 servings daily of coffee and tea . Physical Examination Vital Signs 07/06/2022 8:47 EDT Temperature Temporal Artery 36.8 DegC Peripheral Pulse Rate 75 bpm Respiratory Rate 20 br/min Systolic Blood Pressure NBP 135 mmHg Diastolic Blood Pressure NBP 72 mmHg Vital Signs(last 24 hrs) Last Charted Resp Rate 20 br/min (JUL 06 08:47) LLN192 mmHg (JUL 06 08:47) DBP72 mmHg (JUL 06 08:47) Measurements from flowsheet : Measurements 07/06/2022 8:53 EDT Height 160.0 cm Admission Weight 115 kg Weight Method Stated Orange Body Weight 52.38 kg 07/06/2022 8:47 EDT Height 160.0 cm Admission Weight 115 kg Orange Body Weight 52.38 kg Admission Body Mass Index 44.92 m2 Pain assessment: Pain Assessment 07/06/2022 8:47 EDT Primary Pain Intensity 0 Pain Scale Type 0-10 Pain scale . General: Alert and oriented. Airway: Normal temporomandibular joint mobility. Mallampati classification: II (soft palate, fauces, uvula visible). Head: Normocephalic. Dentition Evaluation: Intact. Neck: Supple. Respiratory: Lungs are clear to auscultation. Cardiovascular: Normal rate. Heart Sounds: Normal. Gastrointestinal: Soft. Musculoskeletal Normal range of motion. Integumentary: Intact. Neurologic: Alert. Review / Management Results review: No qualifying data available , Lab results 07/06/2022 9:47 EDT Lactated Ringers Injection Begin Bag 1,000 mL mL 07/06/2022 8:53 EDT Designated Person #1 We May Share PHI [email or web address] [phone] Designated Person #1 Relationship Friend Privacy Restrictions Requested Yes Height 160.0 cm Admission Weight 115 kg Weight Method Stated Orange Body Weight 52.38 kg Status N/A Sensory Deficits None Sleep Apnea Snore No Sleep Apnea Tired No Sleep Apnea Obstruction No Sleep Apnea Pressure Yes Sleep Apnea BMI Yes Sleep Apnea Age Yes Sleep Apnea Neck No Sleep Apnea Gender No Sleep Apnea Score 3 High Risk for Sleep Apnea No Diagnosed With Sleep Apnea No Advanced Directives Unable to obtain Infectious Disease Symptoms Patient states no symptoms Infectious Disease Recent Exposure No Alcohol and Drug Use No Employee of Institutional Living No Health Care Employee No History of Exposure to TB No History of Positive Chest X-Ray for TB No History of Positive TB Skin Test No Homeless No Known Immunosuppression No Recent Immigrant No Resident of Institutional Living No Bloody Sputum No Fatigue No Fever No Loss of Appetite No Night Sweats No Persistent Cough > 3 Weeks No Weight Loss No Safety Brochure Information Reviewed Unable to complete Individuals Taught Patient Learning Readiness Willing to learn Barriers to Learning None evident Teaching Method Explanation Teaching Evaluation No further teaching needed Preferred Written Language Maldivian Preferred Spoken Language Maldivian Pre Procedure/Surgery Education Appropriate expectations Ed-Communication Verbalizes/Nonverbally indicates understanding Information Given by Patient Patient's Current Physicians Patient's Current Physicians Discharge To, Anticipated Home with family care Prev Test Positive/Diagnosis w/COVID-19 Yes Previous COVID-19 Positive Date 2021 Current Quarantine/Isolated any Illness No Any Contact with Sick Animals/Birds No Traveled Anywhere in Last 30 Days No Lost Weight Unintentionally Recently No Eat Poorly Due to Decreased Appetite No Total MST Score 0 N/A Personal Devices, Patient Valuables Glasses Admission Note-Nursing Same Day Patient History 07/06/2022 8:47 EDT Height 160.0 cm Admission Weight 115 kg Orange Body Weight 52.38 kg Admission Body Mass Index 44.92 m2 Temperature Temporal Artery 36.8 DegC Peripheral Pulse Rate 75 bpm Respiratory Rate 20 br/min Systolic Blood Pressure NBP 135 mmHg Diastolic Blood Pressure NBP 72 mmHg Primary Pain Intensity 0 Pain Scale Type 0-10 Pain scale Nail Bed Color [place] Capillary Refill < 2 seconds All Lobes Breath Sounds Clear Oxygen Therapy Room air Oxygen Saturation 95 % Abdomen Description Non-distended, Soft Swallowing Disorder None Urinary Elimination Voiding, no difficulties Skin Temperature Warm Skin Description [place], Normal for ethnicity, Dry Skin Moisture General Dry IV Present Present Hand Right 07/06/2022 22 gauge Peripheral IV Activity: Insert new site Peripheral IV Dressing Condition: Clean, Dry, Intact Peripheral IV Dressing Activity: Applied, Transparent dressing Peripheral IV Line Status/Patency: Continuous infusion Peripheral IV Site Condition: No complications Peripheral IV Equipment: Manual, Extension set, PRN Adaptor Peripheral IV Number of Attempts: 1 Extremity Movement Equal Characteristics of Speech Clear Level of Consciousness Alert Strength All Extremities Strong Tone All Extremities Normal Affect/Behavior Appropriate Orientation Oriented x 4 Allergies Yes Door Frame Assembler Machine On Yes Colon Prep Results Excellent Consent Form Signed Yes Patient Dressed In Hospital gown History & Physical Update On Chart Yes History & Physical On Chart Yes Obstructive Sleep Apnea Assess Completed Yes Arrival Mode Ambulatory, Wheelchair Position Supine Glasses Yes Dentures N/A Accompanied By On Arrival Friend Orientation Assessment Oriented x 4 Belongings At Bedside Dress, Glasses, Purse, Shoes Activity Status ADL Ambulating in cao, Ambulating in room, Awake Assistive Device Cane NPO Status Maintained Standard Safety ID band on, Allergy Band on, Call device within reach, Bed in low position, Wheels locked, Safety level maintained Allergy Band on and Verified Yes Patient ID Band on and Verified Yes Implants Verified Yes (Modified) Pacemaker/AICD Verified Yes (Modified) Last Fluid Intake 07/06/2022 7:30 Last Food Intake 07/05/2022 11:00 Last Void 07/06/2022 9:03 . Assessment and Plan [place] [employer]hesi[employer] (ASA) physical status classification: Class III. Anesthetic Preoperative Plan Premedication: None. Anesthetic technique: MAC. Induction: intravenously. Postoperative pain management: Per surgeon. Risks discussed: nausea, vomiting, headache, sore throat, dental injury, hypotension, allergic reaction, serious complications. Informed consent: signed by patient. Digitally Signed by JAS REESE on 07/06/2022 09:54 AM [facility]07-07-2022 Note ORIGINAL EXAMINATION: COMPLETE ABDOMINAL ULTRASOUND 06/04/2022 7:59 am COMPARISON: CT abdomen pelvis 02/19/2017 HISTORY: ORDERING SYSTEM PROVIDED HISTORY: Reason for Exam: diarrhea FINDINGS: LIVER: The liver demonstrates increased echogenicity and decreased through transmission. The amount of masking could obscure lesions. BILIARY SYSTEM: Gallbladder is absent. Common bile duct is within normal limits measuring 4 mm. KIDNEYS: The kidneys are unremarkable in appearance without evidence of hydronephrosis. Right kidney measures 10.8 cm in length. Left kidney measures 11.1 cm in length. PANCREAS: Visualized portions of the pancreas are unremarkable. SPLEEN: The spleen is unremarkable in appearance. Spleen is within normal limits in size. IVC: The IVC is patent. AORTA: Aorta is patent without aneurysm. OTHER: No evidence of ascites. IMPRESSION: Abnormal echogenicity of the liver suggesting fatty infiltration or hepatocellular disease. Interpreted by: Nat Oneal MD Preliminary Report By: Nat Oneal MD Electronically signed By Nat Oneal MD Dictated Date: 06/04/2022 11:20:39 AM Prelim Date: 06/04/2022 11:22:49 AM Sign Date: 06/04/2022 11:22:49 AM Ordering Provider: WILLIAM SALGADO [place] [id number] Note ORIGINAL EXAMINATION: COMPLETE ABDOMINAL ULTRASOUND 06/04/2022 7:59 am COMPARISON: CT abdomen pelvis 02/19/2017 HISTORY: ORDERING SYSTEM PROVIDED HISTORY: Reason for Exam: diarrhea FINDINGS: LIVER: The liver demonstrates increased echogenicity and decreased through transmission. The amount of masking could obscure lesions. BILIARY SYSTEM: Gallbladder is absent. Common bile duct is within normal limits measuring 4 mm. KIDNEYS: The kidneys are unremarkable in appearance without evidence of hydronephrosis. Right kidney measures 10.8 cm in length. Left kidney measures 11.1 cm in length. PANCREAS: Visualized portions of the pancreas are unremarkable. SPLEEN: The spleen is unremarkable in appearance. Spleen is within normal limits in size. IVC: The IVC is patent. AORTA: Aorta is patent without aneurysm. OTHER: No evidence of ascites. IMPRESSION: Abnormal echogenicity of the liver suggesting fatty infiltration or hepatocellular disease. Interpreted by: Nat Oneal MD Preliminary Report By: Nat Oneal MD Electronically signed By Nat Oneal MD Dictated Date: 06/04/2022 11:20:39 AM Prelim Date: 06/04/2022 11:22:49 AM Sign Date: 06/04/2022 11:22:49 AM Ordering Provider: [facility]02-01-2022 HCoV 229E RNA PRATEEK+non-probe Ql (Nph)Not Detected *NA* (12/30/21 12:55 PM) [employer]ero [id number] Hospital Discharge instructions Patient Education 10/21/2021 08:25:04 Fall, Mechanical Mechanical Fall You have had a fall today. It appears that the cause is what is called mechanical. That means that you slipped, tripped, or lost your balance. If your fall had been because of fainting or a seizure, you might need other tests. It is normal to feel sore and tight in your muscles and back the next day, and not just the musclesyou injured at first. Remember, all the parts of your body are connected, so while initially one area hurts, the next day another may hurt. Also, when you injure yourself, it causes inflammation, which then causes the muscles to tighten up and hurt more. After the initial worsening, it should gradually improve over the next few days. Do report more severe pain. Even without a definite head injury, you can still get a concussion from your head suddenly jerkingforward, backward, or sideways when falling. Concussions and even bleeding can still happen, especially if you have had a recent injury or take blood thinner medicine. It is not unusual to have a mild headache and feel tired and even nauseous or dizzy. Home care Rest today and go back to your normal activities when you are feeling back to normal. If you were injured during the fall, follow the advice from your healthcare provider regarding careof your injury. At first, do not try to stretch out the sore spots. If there is a strain, stretching may make it worse. Massage may help relax the muscles without stretching them. You can use an ice pack or cold compress on and off to the sore spots 10 to 20 minutes at a time, as often as you feel comfortable. This may help reduce the inflammation, swelling and pain. If you have any scrapes or abrasions, they usually heal within 10 days. It is important to keep theabrasions clean while they initially start to heal. However, an infection may happen even with proper care, so watch for early signs of infection (such as warmth, redness, or swelling). Medicines Talk to your healthcare provider before taking new medicines, especially if you have other medical problems or are taking other medicines. If you need anything for pain, you can take acetaminophen or ibuprofen, unless you were given a different pain medicine to use. Talk with your healthcare provider before using these medicines if you have chronic liver or kidney disease, or ever had a stomach ulcer or gastrointestinal bleeding, or are taking blood thinner medicines. Be careful if you are given prescription pain medicines, narcotics, or medicine for muscle spasm. They can make you sleepy and dizzy, and can affect your coordination, reflexes, and judgment. Do not drive or do work where you can injure yourself when taking them. Fall prevention Fix, remove, or replace anything that caused your fall. Make your home safe by keeping walkways clear of objects you may trip over. Use nonslip pads under rugs. Don't use small area rugs or throw rugs. Don't walk in poorly lit areas. Don't stand on chairs or wobbly ladders. Use caution when reaching overhead or looking upward. This position can cause a loss of balance. Be sure your shoes fit properly, have nonslip bottoms and are in good condition. Be cautious when going up and down curbs, and walking on uneven sidewalks. If your balance is poor, consider using a cane or walker. Stay as active as you can. Balance, flexibility, strength, and endurance all come from exercise. They all play a role in preventing falls. If you have pets, know where they are before you stand up or walk so you don't trip over them. Limit alcohol intake. Alcohol can cause balance problems and increase the risk of falls. Use night lights. Have your eyes tested to be sure you are seeing well, even if you already wear glasses. Follow-up Follow up with your healthcare provider, or as advised. If X-rays or CT scans were done, you will be notified if there is a change in the reading, especially if it affects treatment. Call 911 Call 911 if any of these happen: Trouble breathing Confused or difficulty arousing Fainting or loss of consciousness Rapid or very slow heart rate Seizure Difficulty with speech or vision, weakness of an arm or leg Difficulty walking or talking, loss of balance, numbness or weakness in one side of your body, or facial droop When to seek medical advice Call your healthcare provider right away if any of these happen: Repeated mechanical falls, or unexplained falls Dizziness Severe headache Blood in vomit, stools (black or red color) [phone] [employer]. [address] [place] [address]. All rights reserved. This information is not intended as a substitute for professional medical care. Always follow yourhealthcare professional's instructions. 10/21/2021 08:25:00 Neck Sprain or Strain Neck Sprain or Strain A sudden force that causes turning or bending of the neck can cause sprain or strain. An example would be the force from a car accident. This can stretch or tear muscles called a strain. It can also stretch or tear ligaments called a sprain. Either of these can cause neck pain. Sometimes neck pain occurs after a simple awkward movement. In either case, muscle spasm is commonly present and contributes to the pain. Unless you had a forceful physical injury (for example, a car accident or fall), X-rays are often not ordered for the initial evaluation of neck pain. If pain continues and does not respond to medical treatment, X-rays and other tests may be done later. Home care You may feel more soreness and spasm the first few days after the injury. Rest until symptoms startto improve. When lying down, use a comfortable pillow or a rolled towel that supports the head and keeps the spine in a neutral position. The position of the head should not be tilted forward or backward. Apply an ice pack over the injured area for 15 to 20 minutes every 3 to 6 hours. Do this for the first 24 to 48 hours. You can make an ice pack by filling a plastic bag that seals at the top with icecubes and then wrapping it with a thin towel. After 48 hours, apply heat (warm shower or warm bath)for 15 to 20 minutes several times a day, or alternate ice and heat. You may use evnj-aeq-erhvade pain medicine to control pain, unless another pain medicine was prescribed. If you have chronic liver or kidney disease or ever had a stomach ulcer or gastrointestinal bleeding, talk with your healthcare provider before using these medicines. If a soft cervical collar was prescribed, only ear it for periods of increased pain. It should not be worn for more than 3 hours a day, or for longer than 1 to 2 weeks. Follow-up care Follow up with your healthcare provider, or as directed. Physical therapy may be needed. Sometimes fractures don t show up on the first X-ray. Bruises and sprains can sometimes hurt as much as a fracture. These injuries can take time to heal completely. If your symptoms don t improve or they get worse, talk with your healthcare provider. You may need a repeat X-ray or other tests. If X-rays were taken, you will be told of any new findings that may affect your care. Call 911 Call 911 if you have: Neck swelling, difficulty or painful swallowing Trouble breathing Chest pain When to seek medical advice Call your healthcare provider right away if any of these occur: Pain becomes worse or spreads into your arms or legs Weakness or numbness in one or both arms or legs [phone] [employer]. [address] [place] [address]. All rights reserved. This information is not intended as a substitute for professional medical care. Always follow yourhealthcare professional's instructions. 10/21/2021 08:24:51 Head Injury (Adult) Head Injury (Adult) You have a head injury. It does not appear serious at this time. But symptoms of a more serious problem, such as a mild brain injury (concussion) or bruising or bleeding in the brain, may appear later. For this reason, you or someone caring for you will need to watch for the symptoms listed below. Once you re home, also be sure to follow any care instructions you re given. Home care Watch for the following symptoms Seek emergency medical care if you have any of these symptoms over the next hours to days: Headache Nausea or vomiting Dizziness Sensitivity to light or noise Unusual sleepiness or grogginess Trouble falling asleep Personality changes Vision changes Memory loss Confusion Trouble walking or clumsiness Loss of consciousness (even for a short time) Inability to be awakened Stiff neck Weakness or numbness in any part of the body Seizures General care If you were prescribed medicines for pain, use them as directed. Note: Don t take other medicines for pain without talking to your provider first. To help reduce swelling and pain, apply a cold source to the injured area for up to 20 minutes at atime. Do this as often as directed. Use a cold pack or bag of ice wrapped in a thin towel. Never apply a cold source directly to the skin. If you have cuts or scrapes as a result of your head injury, care for them as directed. For the next 24 hours (or longer, if instructed): oDon t drink alcohol or use sedatives or other medicines that make you sleepy. oDon t drive or operate machinery. oDon t do anything strenuous, such as heavy lifting or straining. oLimit tasks that require concentration. This includes reading, using a smartphone or computer, watching TV, and playing video games. oDon t return to sports or other activities that could result in another head injury. Follow-up care Follow up with your healthcare provider, or as directed. If imaging tests were done, they will be reviewed by a doctor. You will be told the results and any new findings that may affect your care. When to seek medical advice Call your healthcare provider right away if any of these occur: Pain doesn t get better or worsens New or increased swelling or bruising Fever of 100.4 F (38 C) or higher, or as directed by your provider Increased redness, warmth, drainage, or bleeding from the injured area Fluid drainage or bleeding from the nose or ears Any depression or bony abnormality in the injured area Persistent confusion or lethargy Bruising behind the ears or bruising around the eyes [phone] [employer]. [address] [place] [address], [place] [address]. All rights reserved. This information is not intended as a substitute for professional medical care. Always follow yourhealthcare professional's instructions. Follow Up Care 10/21/2021 08:00:55 With:RUSS NAVA SAFETY ASSISTANT - STAFFING MANAGER Address: When:2-4 days [facility] 09-24-2021 NoteHNO ID: [id number] Author: RT Claudette(R) Service: Radiology Author Type: Technologist Type: Progress Notes Filed: 08/22/2021 2:36 PM Note Text: Radiology Service Progress Note PATIENT NAME: Shaylee Wheeler DATE OF SERVICE: August 22, 2021 TIME: 2:36 PM PATIENT IDENTITY VERIFICATION COMPLETED USING TWO (2) IDENTIFIERS: Name and Date of confirmed by patient verbally. FALL SCREENING: Has the patient had 2 falls in the last year or 1 fall with injury or currently using an Ambulatory Assistive Device (Walker, Cane, Wheelchair, Crutches, etc.)? No PATIENT GENDER DATA: Female. status: : No status: NO. PATIENT RELEVANT IMPLANT DATA REVIEWED: Not Applicable RADIOLOGY DEPARTMENT: Ultrasound PERIPHERAL IV DATA: Not applicable SIGNED BY: RT Claudette(R) August 22, 2021 2:36 [facility]09-24-2021 NoteHNO ID: [id number] Author: RT Claudette(R) Service: Radiology Author Type: Technologist Type: Progress Notes Filed: 08/22/2021 2:35 PM Note Text: Radiology Service Progress Note PATIENT NAME: Shaylee Wheeler DATE OF SERVICE: August 22, 2021 TIME: 2:35 PM PATIENT IDENTITY VERIFICATION COMPLETED USING TWO (2) IDENTIFIERS: Name and Date of confirmed by patient verbally. FALL SCREENING: Has the patient had 2 falls in the last year or 1 fall with injury or currently using an Ambulatory Assistive Device (Walker, Cane, Wheelchair, Crutches, etc.)? No PATIENT GENDER DATA: Female. status: : No status: NO. PATIENT RELEVANT IMPLANT DATA REVIEWED: Not Applicable RADIOLOGY DEPARTMENT: Ultrasound PERIPHERAL IV DATA: Not applicable SIGNED BY: RT Claudette(R) August 22, 2021 2:35 [facility]09-17-2021 NoteHNO ID: [id number] Author: Bernardo Miguel MD Service: ? Author Type: Physician Type: Progress Notes Filed: 08/15/2021 9:50 AM Note Text: NEW PATIENT HISTORY AND PHYSICAL EXAM HISTORY OF PRESENT ILLNESS: Shaylee Wheeler is a 75 year old female who presents New patient consult Russ Nava. 2 Was placed on oxybutynin by Dr. Dove States that she has been on this for 6 years Denies any recurrent UTIs Denies gross hematuria Occasional constipation States that she has urgency incontinence and oftentimes cannot make it to the restroom in time. Occasional leakage with coughing, but it doesn't bother her Was told she has CKD Does not feel like she has a bulge She is wearing 2 large diapers a day along with pads. Noticed over the past 2 years that the oxybutynin is no longer working. REVIEW OF SYSTEMS: GENERAL:No weight loss, malaise or fevers ALLERGIC/IMMUNOLOGIC: drug allergies HEENT:Negative for frequent or significant headaches, No changes in hearing or vision, no nose bleeds or other nasal problems RESPIRATORY: Negative for cough, hemoptysis, wheezing, COPD, dyspnea or shortness of breath CARDIOVASCULAR: Positive for leg swelling GASTROINTESTINAL: Diarrhea frequent GENITOURINARY: See HPI MUSCULOSKELETAL: joint pain or swelling NEUROLOGIC:Positive for numbness or tingling of the feet: Weakness of legs SKIN:Lesion Do you leak with cough, sneeze or exercise Yes Do you leak with urgency such as getting to the restroom on time or with running water Yes How many times do you urinate during the day 6 - 7 How many times do you get up to urinate at night 3 How many pads do you wear during the day Yes, 2 pads and 2 depends Do you wear pads at night Depends Do you have fecal urgency Sometimes Do you have fecal incontinence Sometimes Do you have pain with intercourse N/A Do you have urinary leakage with intercourse No What medications have you tried to help your leakage Oxybutynin What surgeries have you had for the above symptoms No GLUCOSE UA (POCT) Negative 08/15/2021 BILIRUBIN UA (POCT) Negative 08/15/2021 KETONE UA (POCT) Negative 08/15/2021 SPECIFIC GRAVITY UA (POCT) 1.015 08/15/2021 HEMOGLOBIN/BLOOD UA (POCT) Trace-intact 08/15/2021 PH UA (POCT) 7.0 08/15/2021 PROTEIN UA (POCT) Negative 08/15/2021 UROBILINOGEN UA (POCT) 0.2 08/15/2021 NITRITE UA (POCT) Negative 08/15/2021 LEUKOCYTES UA (POCT) Small 08/15/2021 COLOR UA (POCT) Yellow 08/15/2021 CLARITY UA (POCT) Clear 08/15/2021 MEDICATIONS: lisinopril (ZESTRIL, PRINIVIL) 10 mg tablet Take 1 tablet by mouth once daily. levothyroxine (SYNTHROID) 100 mcg tablet TAKE 1 TABLET DAILY ON AN EMPTY STOMACH FOR THYROID. Chlorhexidine Gluconate (PERIDEX) 0.12 % solution USE 15 ML INSTRUCTED TWICE DAILY. benzocaine (ANESTHETIC ORAL GEL) 20 % gel Use 1 application as instructed as needed. oxybutynin ER (DITROPAN XL) 10 mg 24 hr tablet Take 1 tablet by mouth once daily. pantoprazole DR (PROTONIX) 40 mg tablet Take 1 tablet by mouth daily before breakfast. Take on empty stomach, 1/2 hr before meal. ranolazine ER (RANEXA) 500 mg 12 hr tablet Take 1 tablet by mouth twice daily. furosemide (LASIX) 40 mg tablet Take 1 tablet by mouth once daily. aspirin, enteric coated (ASPIRIN, ENTERIC COATED) 325 mg EC tablet Take 1 tablet by mouth once daily. Take with food. docusate sodium (COLACE) 100 mg capsule Take 1 capsule by mouth twice daily as needed for Constipation. nitroglycerin sublingual (NITROSTAT) 0.4 mg SL tablet Dissolve 1 tablet under the tongue every 5 minutes as needed. metoprolol succinate ER (TOPROL XL) 50 mg 24 hr tablet Take 1 tablet by mouth once daily. citalopram (CELEXA) 40 mg tablet Take 1 tablet by mouth once daily. naproxen sodium (ALEVE) 220 mg cap Take by mouth. Alden-3 Fatty Acids (FISH OIL) 500 mg cap Take 2 capsules by mouth three times daily. calcium citrate-vitamin D3 (CALCIUM CITRATE + D) 315-200 mg-unit tab Take 1 tablet by mouth three times daily with meals. multivitamin tablet Take 1 tablet by mouth once daily. mupirocin (BACTROBAN) 2 % ointment Apply 1 application to affected area twice daily. Location: upper back HISTORIES PAST MEDICAL HISTORY Diagnosis Date - Acid reflux 03/05/2015 - CAD (coronary artery disease) 03/05/2015 - Chronic diastolic heart failure (HCC) 04/26/2015 - Chronic low back pain 04/26/2015 - Elevated fasting glucose 04/26/2015 - HTN (hypertension) - Hyperlipidemia 03/05/2015 - Hypothyroidism 03/05/2015 - OAB (overactive bladder) 03/05/2015 - Rosacea 03/08/2015 - Stented coronary artery 04/26/2015 FAMILY HISTORY Problem Relation Age of Onset - Breast Cancer Sister PAST SURGICAL HISTORY Procedure Laterality Date - APPENDIX NET-EXCIS(APPENDECTOMY)SYNOPTIC - LAP CHOLECYSTECT/CHOLANGIOGRAPHY 07-25-15 - [place] ANESTH,SHOULDER REPLACEMENT 2011 - STENT PLACEMENT 2008 - TONSILLECTOMY AND ADENOIDECTOMY HX - TOTAL KNEE REPLACEMENT 2 (more content not included)...[facility] Appointment Date:10/02/2021 11:00:00 AM Scheduled Provider:WILLIAM SALGADO Location:[facility] Appointment Type:CV OV Appointment Date:11/17/2021 09:40:00 AM Scheduled Provider:RUSS NAVA APRN, CNP Location:[facility] Appointment Type:PC OV Follow Up Appointment Date:02/13/2022 09:00:00 AM Scheduled Provider: Location:[facility] Appointment Type:PC Nurse Lab Appointment Date:02/20/2022 09:40:00 AM Scheduled Provider:RUSS NAVA APRN, CNP Location:[facility] Appointment Type:PC OV Follow Up Future Scheduled Tests Laboratory* Renin, Plasma 02/15/22 * Basic Metabolic Panel 08/28/21 * Thyroid Stimulating Hormone 02/15/22 * Thyroid Stimulating Hormone 11/22/20 * Free T4 02/15/22 * Free T4 11/22/20 * N-Terminal proBNP 08/28/21 * A1C Hemoglobin 02/15/22 * A1C Hemoglobin 11/22/20 * A1C Hemoglobin 08/08/21 * Complete Blood Count 02/15/22 * Lipid Profile 02/15/22 * Lipid Profile 08/08/21 * PTH, Intact 02/15/22 * Vitamin D Level 02/15/22 * Complete Metabolic Panel 02/15/22 * Complete Metabolic Panel 08/08/21 [facility] Evaluation + Plan note Future Appointments Appointment Date:10/27/2021 01:40:00 PM Scheduled Provider:RUSS NAVA APRN - STAFFING MANAGER Location:[facility] Appointment Type:PC OV Follow Up Appointment Date:11/17/2021 09:40:00 AM Scheduled Provider:RUSS NAVA APRN, CNP Location:[facility] Appointment Type:PC OV Follow Up Appointment Date:02/13/2022 09:00:00 AM Scheduled Provider: Location:[facility] Appointment Type:PC Nurse Lab Appointment Date:02/20/2022 09:40:00 AM Scheduled Provider:RUSS NAVA APRN, CNP Location:[facility] Appointment Type:PC OV Follow Up Appointment Date:04/02/2022 11:00:00 AM Scheduled Provider:WILLIAM SALGADO Location:[facility] Appointment Type:CV OV Future Scheduled Tests Laboratory* Renin, Plasma 02/15/22 * Basic Metabolic Panel 08/28/21 * Thyroid Stimulating Hormone 02/15/22 * Thyroid Stimulating Hormone 11/22/20 * Free T4 02/15/22 * Free T4 11/22/20 * N-Terminal proBNP 08/28/21 * A1C Hemoglobin 02/15/22 * A1C Hemoglobin 11/22/20 * A1C Hemoglobin 08/08/21 * Complete Blood Count 02/15/22 * Lipid Profile 02/15/22 * Lipid Profile 08/08/21 * PTH, Intact 02/15/22 * Vitamin D Level 02/15/22 * Complete Metabolic Panel 02/15/22 * Complete Metabolic Panel 08/08/21 Radiology* XR Knee 3 Views Right 10/06/21 [facility] Evaluation + Plan note Future Appointments Appointment Date:10/22/2021 09:00:00 AM Scheduled Provider:EUGENE DAVEY Location:[facility] Appointment Type:PC OV ED Follow Up Appointment Date:10/27/2021 01:40:00 PM Scheduled Provider:RUSS NAVA APRN, CNP Location:[facility] Appointment Type:PC OV Follow Up Appointment Date:11/17/2021 09:40:00 AM Scheduled Provider:RUSS NAVA APRN, CNP Location:[facility] Appointment Type:PC OV Follow Up Appointment Date:02/13/2022 09:00:00 AM Scheduled Provider: Location:[facility] Appointment Type:PC Nurse Lab Appointment Date:02/20/2022 09:40:00 AM Scheduled Provider:RUSS NAVA APRN, CNP Location:[facility] Appointment Type:PC OV Follow Up Appointment Date:04/02/2022 11:00:00 AM Scheduled Provider:WILLIAM SALGADO Location:[facility] Appointment Type:CV OV Future Scheduled Tests Laboratory* Renin, Plasma 02/15/22 * Basic Metabolic Panel 08/28/21 * Thyroid Stimulating Hormone 02/15/22 * Thyroid Stimulating Hormone 11/22/20 * Free T4 02/15/22 * Free T4 11/22/20 * N-Terminal proBNP 08/28/21 * A1C Hemoglobin 02/15/22 * A1C Hemoglobin 11/22/20 * A1C Hemoglobin 08/08/21 * Complete Blood Count 02/15/22 * Lipid Profile 02/15/22 * Lipid Profile 08/08/21 * PTH, Intact 02/15/22 * Vitamin D Level 02/15/22 * Complete Metabolic Panel 02/15/22 * Complete Metabolic Panel 08/08/21 Radiology* XR Knee 3 Views Right 10/06/21 [facility] Evaluation + Plan note Future Appointments Appointment Date:02/13/2022 09:00:00 AM Scheduled Provider: Location:[facility] Appointment Type:PC Nurse Lab Appointment Date:02/20/2022 09:40:00 AM Scheduled Provider:RUSS NAVA APRN, CNP Location:[facility] Appointment Type:PC OV Follow Up Appointment Date:04/02/2022 11:00:00 AM Scheduled Provider:WILLIAM SALGADO Location:[facility] Appointment Type:CV OV Future Scheduled Tests Laboratory* Renin, Plasma 02/15/22 * Basic Metabolic Panel 08/28/21 * Thyroid Stimulating Hormone 02/15/22 * Free T4 02/15/22 * N-Terminal proBNP 08/28/21 * A1C Hemoglobin 02/15/22 * A1C Hemoglobin 08/08/21 * Complete Blood Count 02/15/22 * Lipid Profile 02/15/22 * Lipid Profile 08/08/21 * PTH, Intact 02/15/22 * Vitamin D Level 02/15/22 * Complete Metabolic Panel 02/15/22 * Complete Metabolic Panel 08/08/21 * [facility] [place] Specimens[place] 12/29/21 Radiology* XR Knee 3 Views Right 10/06/21 [facility] Evaluation + Plan note Future Appointments Appointment Date:02/19/2022 09:40:00 AM Scheduled Provider:RUSS NAVA APRN, CNP Location:[facility] Appointment Type:PC OV Follow Up Appointment Date:04/02/2022 11:00:00 AM Scheduled Provider:WILLIAM SALGADO Location:[facility] Appointment Type:CV OV Diagnostic Tests Pending * Respiratory ID Panel with COVID-19 by PCR 02/14/22 * Throat Culture 02/14/22 Future Scheduled Tests Laboratory* Renin, Plasma 02/15/22 * Respiratory ID Panel with COVID-19 by PCR 02/14/22 * Basic Metabolic Panel 08/28/21 * Thyroid Stimulating Hormone 02/15/22 * Free T4 02/15/22 * N-Terminal proBNP 08/28/21 * A1C Hemoglobin 02/15/22 * A1C Hemoglobin 08/08/21 * Complete Blood Count 02/15/22 * Lipid Profile 02/15/22 * Lipid Profile 08/08/21 * PTH, Intact 02/15/22 * Vitamin D Level 02/15/22 * Complete Metabolic Panel 02/15/22 * Complete Metabolic Panel 08/08/21 * [facility] [place] Specimens[place] 12/29/21 Radiology* XR Knee 3 Views Right 10/06/21 [facility] Evaluation + Plan note Future Appointments Appointment Date:08/20/2022 09:00:00 AM Scheduled Provider: Location:[facility] Appointment Type:PC Nurse Lab Appointment Date:08/27/2022 10:20:00 AM Scheduled Provider:RUSS NAVA APRN, CNP Location:[facility] Appointment Type:PC OV Follow Up Appointment Date:11/25/2022 11:00:00 AM Scheduled Provider:WILLIAM SALGADO Location:[facility] Appointment Type:CV OV Future Scheduled Tests Laboratory* Clostridium difficile (PCR) 05/19/22 * Renin, Plasma 08/22/22 * Basic Metabolic Panel 08/28/21 * Thyroid Stimulating Hormone 08/22/22 * Free T4 08/22/22 * Stool Culture 05/19/22 * A1C Hemoglobin 08/22/22 * A1C Hemoglobin 02/15/22 * A1C Hemoglobin 08/08/21 * Complete Blood Count 05/19/22 * Complete Blood Count 08/22/22 * Lipid Profile 05/19/22 * Lipid Profile 08/22/22 * Lipid Profile 08/08/21 * Microalbumin Level Urine 08/22/22 * PTH, Intact 08/22/22 * Vitamin D Level 08/22/22 * Complete Metabolic Panel 05/19/22 * Complete Metabolic Panel 08/22/22 * Complete Metabolic Panel 08/08/21 * N-Terminal proBNP 08/28/21 * N-Terminal proBNP 05/19/22 * Respiratory ID Panel with COVID-19 by PCR 02/14/22 * [facility] [place] (Blood Specimens) 12/29/21 Radiology* XR Knee 3 Views Right 10/06/21 [facility] Evaluation + Plan note Future Appointments Appointment Date:02/18/2023 09:30:00 AM Scheduled Provider: Location:[facility] Appointment Type:PC Nurse Lab Appointment Date:02/25/2023 09:20:00 AM Scheduled Provider:RUSS NAVA APRN - STAFFING MANAGER Location:[facility] Appointment Type:PC OV Follow Up Appointment Date:06/09/2023 09:30:00 AM Scheduled Provider:WILLIAM SALGADO APRN-STAFFING MANAGER Location:[facility] Appointment Type:CV OV Future Scheduled Tests Laboratory* Clostridium difficile (PCR) 05/19/22 * Renin, Plasma 02/24/23 * Iron Level 02/24/23 * Thyroid Stimulating Hormone 02/24/23 * Free T4 02/24/23 * Stool Culture 05/19/22 * A1C Hemoglobin 02/24/23 * Complete Blood Count 02/24/23 * Complete Blood Count 05/19/22 * Lipid Profile 02/24/23 * Lipid Profile 05/19/22 * Microalbumin Level Urine 02/24/23 * Microalbumin Level Urine 08/22/22 * PTH, Intact 02/24/23 * Vitamin D Level 02/24/23 * Complete Metabolic Panel 02/24/23 * Complete Metabolic Panel 05/19/22 * N-Terminal proBNP 05/19/22 * TIBC 02/24/23 [facility] Evaluation + Plan note Future Appointments Appointment Date:04/07/2023 02:00:00 PM Scheduled Provider:MATTHIEU BRICE MD Location: [facility] Appointment Type:WH OV Appointment Date:04/27/2023 09:30:00 AM Scheduled Provider: Location:[facility] Appointment Type:PT Outpatient Evaluation Appointment Date:06/09/2023 09:30:00 AM Scheduled Provider:WILLIAM SALGADO Location:[facility] Appointment Type:CV OV Appointment Date:09/09/2023 09:00:00 AM Scheduled Provider:RUSS NAVA APRN, CNP Location:[facility] Appointment Type:PC OV Follow Up Future Scheduled Tests Laboratory* Clostridium difficile (PCR) 05/19/22 * Iron Level 08/28/23 * Thyroid Stimulating Hormone 08/28/23 * Free T4 08/28/23 * Stool Culture 05/19/22 * A1C Hemoglobin 08/28/23 * Complete Blood Count 08/28/23 * Complete Blood Count 05/19/22 * Lipid Profile 08/28/23 * Lipid Profile 05/19/22 * Albumin/Creatinine Ratio, Random Urine 08/28/23 * Microalbumin Level Urine 02/24/23 * Microalbumin Level Urine 08/22/22 * Complete Metabolic Panel 08/28/23 * Complete Metabolic Panel 05/19/22 * N-Terminal proBNP 05/19/22 * TIBC 08/28/23 [facility] Evaluation + Plan note Future Appointments Appointment Date:05/13/2023 10:15:00 AM Scheduled Provider:WILLIAM SALGADO Location:[facility] Appointment Type:CV OV Appointment Date:05/20/2023 01:40:00 PM Scheduled Provider:RUSS NAVA APRN, CNP Location:[facility] Appointment Type:PC OV Appointment Date:09/09/2023 09:00:00 AM Scheduled Provider:RUSS NAVA APRN, CNP Location:[facility] Appointment Type:PC OV Follow Up Future Scheduled Tests Laboratory* Clostridium difficile (PCR) 05/19/22 * Iron Level 08/28/23 * Thyroid Stimulating Hormone 08/28/23 * Free T4 08/28/23 * Stool Culture 05/19/22 * A1C Hemoglobin 08/28/23 * Complete Blood Count 08/28/23 * Complete Blood Count 05/19/22 * Lipid Profile 08/28/23 * Lipid Profile 05/19/22 * Albumin/Creatinine Ratio, Random Urine 08/28/23 * Microalbumin Level Urine 02/24/23 * Microalbumin Level Urine 08/22/22 * Complete Metabolic Panel 08/28/23 * Complete Metabolic Panel 05/19/22 * N-Terminal proBNP 05/19/22 * TIBC 08/28/23 [facility] Evaluation + Plan note Future Appointments Appointment Date:05/28/2023 10:00:00 AM Scheduled Provider: Location:[facility] Appointment Type:PC Nurse Appointment Date:08/11/2023 09:30:00 AM Scheduled Provider:WILLIAM SALGADO Location:[facility] Appointment Type:CV OV Appointment Date:09/09/2023 09:00:00 AM Scheduled Provider:RUSS NAVA APRN - FELICE Location:[facility] Appointment Type:PC OV Follow Up Future Scheduled Tests Laboratory* Iron Level 08/28/23 * Thyroid Stimulating Hormone 08/28/23 * Free T4 08/28/23 * A1C Hemoglobin 08/28/23 * Complete Blood Count 08/28/23 * Lipid Profile 08/28/23 * Albumin/Creatinine Ratio, Random Urine 08/28/23 * Microalbumin Level Urine 02/24/23 * Microalbumin Level Urine 08/22/22 * Complete Metabolic Panel 08/28/23 * TIBC 08/28/23 [facility] Evaluation + Plan note Future Appointments Appointment Date:10/05/2023 08:20:00 AM Scheduled Provider:RUSS NAVA APRN, CNP Location:[facility] Appointment Type:PC OV Follow Up Appointment Date:11/02/2023 09:00:00 AM Scheduled Provider:RUSS NAVA APRN - FELICE Location:[facility] Appointment Type:PC OV Pre Op Future Scheduled Tests Laboratory* Albumin/Creatinine Ratio, Random Urine 08/28/23 * Microalbumin Level Urine 02/24/23 [facility] Hospital course Narrative No data available for this section [facility] Hospital Discharge instructions No data available for this section [facility] Progress note No data available for this section [facility] Summary Purpose Family History No Family History Records FoundNo Family History Records Found No data available for this section No Family History Records Found Advance Directives No Advanced Directives Records FoundNo Advanced Directives Records FoundNo Advanced Directives Records Found Additional Source Comments INFORMATION SOURCE (unrecogn ized section and content) DATE CREATED AUTHOR AUTHOR'S ORGANIZ ATION 10/22/2021 [facility] DATE CREATED AUTHOR AUTHOR'S ORGANIZ ATION 10/05/2023 [facility] ([place]) Care Team (unrecognized sect ion and content) Care Team Personnel Name: RUSS NAVA APRN, CNP Position: P4 Advanced Practice Nurse Med Service: Employed Provider Member Role: Primary Care Physician Address: Address: [address] [place] [address]- Care Team Related Persons Name: ABEBE MATTHEWS Care Team Personnel Name: RUSS NAVA APRN, CNP Position: P4 Advanced Practice Nurse Med Service: Employed Provider Member Role: Primary Care Physician Address: Address: [address] [place] [address]- Care Team Related Persons Name: ABEBE MATTHEWS Care Team Personnel Name: RUSS NAVA APRN, CNP Position: P4 Advanced Practice Nurse Member Role: Primary Care Physician Address: Address: [address] [place] [address] Care Team Related Persons Name: ABEBE MATTHEWS Care Team Personnel Name: RUSS NAVA APRN STAFFING MANAGER Position: P4 Advanced Practice Nurse Member Role: Primary Care Physician Address: Address: [address] Care Team Related Persons Name: ABEBE MATTHEWS Patient Care team informatio n (unrecognized section and content) Care Team Personnel Name: RUSS NAVA APRN, CNP Position: P4 Advanced Pipe Coverer Member Role: Primary Care Physician Address: Address: [address] [place] [address] Care Team Related Persons Name: ABEBE MATTHEWS Care Team Personnel Name: RUSS NAVA APRN STAFFING MANAGER Position: P4 Advanced Pipe Coverer Member Role: Primary Care Physician Address: Address: [address] [place] [address] Care Team Related Persons Name: ABEBE MATTHEWS Care Team Personnel Name: RUSS NAVA APRN STAFFING MANAGER Position: P4 Advanced Pipe Coverer Member Role: Primary Care Physician Address: Address: [address] [place] [address] Care Team Related Persons Name: ABEBE MATTHEWS Care Team Personnel Name: RUSS NAVA APRN - STAFFING MANAGER Position: P4 Advanced Pipe Coverer Member Role: Primary Care Physician Address: Address: [address] [place] [address] Care Team Related Persons Name: ABEBE MATTHEWS FOR RECORDS PERTAINING TO PATIENTS WHO ARE OR HAVE BEEN ENROLLED IN A CHEMICAL DEPENDENCY/SUBSTANCEABUSE PROGRAM, SOME INFORMATION MAY BE OMITTED. This clinical summary was aggregated from multiple sources. Caution should be exercised in using it in the provision of clinical care. This summary normalizes information from multiple sources, and as a consequence, information in this document may materially change the coding, format and clinical context of patient data. In addition, data may be omitted in some cases. CLINICAL DECISIONS SHOULD BE BASED ON THE PRIMARY CLINICAL RECORDS. [employer] provides no warranty or guarantee of the accuracy or completeness of information in this document.
== END | disposition home or self-care (01) ==
LOC: CT 08:19
PROVIDERS: PCP Nurse Practitioner Family; Visit Provider Urology
DX: R10.84 Generalized abdominal pain (principal)
CPT/HCPCS: 74176